=== PATIENT | female | born 1945 | race Hispanic/Latino ===

== ENCOUNTER 2016-04-20 03:44 | Inpatient (IN) | payer MEDICARE, SELFPAY ==
[~2016-04-20] VITALS: Ht 157.5 cm; Wt 47.2 kg
[2016-04-20 04:29] LABS: DIFF SLIDE NUMBER 102; MEAN CORPUSCULAR HEMOGLOBIN 29.2 pg (27.0-33.0); MEAN CORPUSCULAR HGB CONC 30.3 g/dl (32.0-36.5); MEAN CORPUSCULAR VOLUME 96.5 fl (80.0-96.0); PLATELET COUNT, AUTOMATED 426 k/mm3 (150-450); RED CELL DISTRIBUTION WIDTH 13.2 % (11.5-14.5)
[2016-04-20 04:31] LABS: WHITE BLOOD COUNT 32.4 K/mm3 (4.0-10.0)
[2016-04-20 04:36] LABS: VENOUS BASE EXCESS -28.2 (-2.0-2.0); VENOUS O2 SATURATION 65.5 % (60.0-80.0); VENOUS PARTIAL PRESSURE CO2 29.1 mmHg (38.0-50.0); VENOUS PARTIAL PRESSURE O2 35.5 mmHg (30.0-50.0); VENOUS STANDARD HCO3 6.1 MEQ/L
[2016-04-20 04:47] LABS: CALCIUM LEVEL 9.4 MG/DL (8.8-10.2); CREATININE FOR GFR 1.93 MG/DL (0.55-1.02); GLOMERULAR FILTRATION RATE 27.2 (>39); POTASSIUM SERUM 4.8 MEQ/L (3.5-5.1)
[2016-04-20] MEDS ORDERED: HumuLIN R (REGULAR) INSULIN (NovoLIN R) **100U/ML** PER UNIT As Ordered ONE ×2 (04:56)
[2016-04-20] MEDS: NS 1,000 ML IV SCH ×4 (05:19→20:19)
[2016-04-20] MEDS ORDERED: KCL 20MEQ IN 0.9 NS 1000 ML BAG As Ordered ONE (05:27)
--- NOTE | 2016-04-20 05:47 | REP ---
Clinical: Diabetic ketoacidosis . Comparison: None . Findings: The mediastinum and cardiac silhouette are stable and within normal limits for portable technique. The lung prabhakar demonstrate chronic-appearing changes without acute consolidation, effusion, or pneumothorax. Skeletal structures are intact. Impression: No acute cardiopulmonary process appreciated. Signed by El Burgos MD 04/20/2016 05:38 A
--- NOTE | 2016-04-20 06:33 | HPEPDOC ---
Medical History and Physical Date of Admission Apr 20, 2016 at 05:19 History and Physical HISTORY AND PHYSICAL Date of admission: 04/20/2016 PCP: None Chief complaint: Very weak HPI: 70-year-old female with diabetes mellitus and hyperlipidemia who was brought to the emergency department by her daughter and granddaughter because they noticed that she seemed very tired and weak. The patient currently lives out of state with her son, but was in state visiting her daughter and granddaughter for her birthday. The daughter states that the patient had been in her normal state of health until this morning, when she noticed that the patient seemed more tired. When the daughter came home from work today, the patient wanted water, but when she handed her the glass, the patient missed her mouth when she was trying to drink. This all concerned the daughter very much so she brought her to the hospital. Of note, the patient had a similar presentation a couple years ago when she was diagnosed with diabetes. At that time, the patient was living here with the daughter, and the daughter helped her follow her medications and changed her diet, and was able to decrease her A1c from 12 to 6 in several months. She initially was on 70/30 insulin with 10 units in the morning and 3 in the evening, but eventually was able to get down to just taking oral medication. However, the patient did not like the diet that the daughter had her on and did not like taking medications, so she moved out of state to live with her son. It appears that since moving away, the patient has no longer continued to treat her diabetes. Past medical history: Diabetes mellitus, hyperlipidemia Past surgical history: Family history: Diabetes Social history: Patient denies any alcohol or tobacco use Allergies: No known drug allergies Review of systems: General: Positive for chills. Negative for fevers Eyes: Negative for vision changes ENT: Negative for sore throat and nose bleed Cardiovascular: Negative for chest pain Respiratory: Negative for cough. Positive for shortness of breath. GI: Negative for nausea and vomiting Musculoskeletal: Negative for neck and back pain Neuro: Negative for headache and dizziness Endocrine: Positive for polyuria and polydipsia : Negative for dysuria Heme: Negative for bleeding Home meds: See below Physical exam: Vital signs: Blood pressure 121/77, HR 91, temperature 96.2, O2 sat 98% on room air, RR 16 Gen.: awake, tired but answers questions Eyes: Extraocular movements intact, normal sclera ENT: Dry mucous membranes Cardiovascular: RRR, no murmurs rubs or gallops Lungs: clear to auscultation bilaterally, no rales, rhonchi, or wheeze Abdomen: Soft, NT/ND, normal BS Musculoskeletal: normal range of motion Extremities: No peripheral edema Neuro: oriented to person and place but thinks the year is "46" Psych: anxious Labs and radiology: See below Sodium 126 Creatinine 1.93 Glucose 887 WBC 32 PH 6.86, bicarbonate 6 Gap 30 A1c 12.4 Assessment and plan: 70-year-old female with diabetes mellitus and hyperlipidemia who was brought to the emergency department by her daughter and granddaughter because they noticed that she seemed very tired and weak. She is admitted with DKA, which appears to be secondary to not treating her diabetes. 1. DKA, underlying diabetes mellitus type 2; the patient presents in DKA with a pH of 6.86, gap of 30, bicarbonate of 6. Admittedly she has not been treating her diabetes, and this is evident with an A1c of 12.4. At this time, she'll be continued on an insulin drip and IV fluids until she is able to be transitioned to long-acting insulin. When her mental status improves, we will need to reinforce to her the importance of treating her diabetes. 2. Pseudohyponatremia: Sodium is 126, artificially low secondary to her hyperglycemia. I expect this to correct with correction of her DKA. 3. Acute kidney injury: Creatinine is 1.93. This is most likely secondary to extreme dehydration from her hyperglycemia, and I expect this to correct as well with correction of her DKA. 4. Leukocytosis: WBC is 32. I suspect that most likely this is reactive to DKA, as she is afebrile. However, we will check a UA, urine culture, and blood culture in an effort to be thorough. Chest x-ray is unremarkable. DVT prophylaxis: Lovenox Dispo: admit as an inpatient to the service of Dr. Proctor Vital Signs see above Laboratory Data Labs 24H Laboratory Tests 2 04/20/16 04:12: Anion Gap 30H, Blood Gas Bicarbonate Standard 6.1, Blood Urea Nitrogen 38H, Creatinine 1.93H, Sodium Level 126L, Potassium Level 4.8, Chloride Level 89L, Carbon Dioxide Level 7L, Calcium Level 9.4, Estimated Mean Plasma Glucose 309H, Glomerular Filtration Rate 27.2L, Hemoglobin A1c 12.4H, Lymphocytes (Manual) 2L , Monocytes (Manual) 9H, Neutrophils 89H, Platelet Estimate NORMAL, Venous Blood Base Excess -28.2L, Venous Blood pH 6.858L, Venous Blood Partial Pressure CO2 29.1L, Venous Blood Partial Pressure O2 35.5, Venous Blood Total Carbon Dioxide 6.0L, Venous Blood HCO3 5.1L, Venous Blood Oxygen Saturation 65.5 04/20/16 06:17: CBC/BMP Laboratory Tests 04/20/16 04:12 Calcium Level 9.4, Red Blood Count 5.45 H, Mean Corpuscular Volume 96.5 H, Mean Corpuscular Hemoglobin 29.2, Mean Corpuscular Hemoglobin Concent 30.3 L, Red Cell Distribution Width 13.2 Home Medications Unable to Obtain Active Prescriptions or Reported Meds Allergies Coded Allergies: No Known Allergies (Unverified , 04/20/16) MIO MENDEZ Apr 20, 2016 06:33
[2016-04-20 08:14] LABS: ANION GAP 26 MEQ/L (8-16); BLOOD UREA NITROGEN 36 MG/DL (7-18); CALCIUM LEVEL 9.1 MG/DL (8.8-10.2); CARBON DIOXIDE LEVEL 6 MEQ/L (21-32); CHLORIDE LEVEL 98 MEQ/L (98-107); CREATININE FOR GFR 1.78 MG/DL (0.55-1.02); GLOMERULAR FILTRATION RATE 29.8 (>39); POTASSIUM SERUM 4.4 MEQ/L (3.5-5.1); SODIUM LEVEL 130 MEQ/L (136-145)
[2016-04-20 08:20] LABS: GLUCOSE, FASTING 597 MG/DL (83-110)
[2016-04-20] MEDS: INSULIN HUMAN REGULAR 100 UNITS in NS 99 ML IV SCH ×6 (08:30→16:00)
[2016-04-20] MEDS ORDERED: ENOXAPARIN 30 MG/0.3 ML SYR (J1650) SC SCH (09:00)
[2016-04-20] MEDS: PANTOPRAZOLE 40MG INJ (PROTONIX) (C9113) IV SCH (09:00)
[2016-04-20] MEDS ORDERED: PANTOPRAZOLE 40MG INJ (PROTONIX) (C9113) As Ordered ONE (09:25)
[2016-04-20] MEDS ORDERED: ENOXAPARIN 30 MG/0.3 ML SYR (J1650) As Ordered ONE (09:25)
[2016-04-20 10:00] VITALS: BP 107/68
[2016-04-20 10:08] LABS: CALCIUM LEVEL 8.9 MG/DL (8.8-10.2); CREATININE FOR GFR 1.67 MG/DL (0.55-1.02); GLOMERULAR FILTRATION RATE 32.1 (>39); POTASSIUM SERUM 3.9 MEQ/L (3.5-5.1)
[2016-04-20 11:35] LABS: CALCIUM LEVEL 8.6 MG/DL (8.8-10.2); CREATININE FOR GFR 1.58 MG/DL (0.55-1.02); GLOMERULAR FILTRATION RATE 34.2 (>39)
[2016-04-20 12:00] VITALS: BP 113/71
[2016-04-20 12:01] LABS: ABG HCO3 7.8 MEQ/L (22.0-26.0); ABG PARTIAL PRESSURE CO2 20.1 mmHg (35.0-45.0); ABG PARTIAL PRESSURE O2 105.9 mmHg (75.0-100.0); ABG STANDARD HCO3 11.3 MEQ/L (22.0-26.0); ABG TOTAL CO2 8.4 MEQ/L (23.0-31.0)
[2016-04-20 12:04] LABS: ABG pH (ARTERIAL) 7.208 UNITS (7.350-7.450)
[2016-04-20 13:49] LABS: CALCIUM LEVEL 8.4 MG/DL (8.8-10.2); CREATININE FOR GFR 1.47 MG/DL (0.55-1.02); GLOMERULAR FILTRATION RATE 37.2 (>39)
--- NOTE | 2016-04-20 14:18 | EDDOCDS ---
Nurse's Notes [facility] Name: Bri Skinner Age: 70 yrs Sex: Female : 1945 Arrival Date: 04/20/2016 Time: 03:44 Bed 20 Private MD: Unknown, Family Dr Diagnosis: Altered mental status, unspecified;Diabetes mellitus due to underlying condition with ketoacidosis without coma Presentation: 04/20 03:46 Presenting complaint: EMS states: FS read high when checked by EMS. pt c/o feeling mlc thirsty. Adult Sepsis Screening: The patient does not have new or worsening altered mentation. Patient's respiratory rate is less than 22. Systolic blood pressure is greater than 100. Patient has a qSOFA score of 0- Negative Sepsis Screen. Suicide/Homicide risk assessment- the patient denies having any suicidal and/or homicidal ideations and does not present with any other emotional, behavioral or mental health complaints. Status: Patient is not a dispatcher service or dependent. Transition of care: patient was not received from another setting of care. 03:46 Acuity: ESTEFANI Level 3 [facility] [place] 03:46 Method Of Arrival: Amb[place] [facility] [place] Triage Assessment: 03:54 General: Appears in no apparent distress, comfortable, Behavior is cooperative. Pain: mlc Denies pain. The patient is triaged at the bedside. See Assessment in Nurses Notes section of ED record. Neurological: Level of Consciousness is awake, obeys commands, Oriented to person. Respiratory: Airway is patent Respiratory effort is even, unlabored, Respiratory pattern is regular. GI: Denies nausea, vomiting. Derm: Skin is normal. Historical: - Allergies: No known drug Allergies; - Home Meds: 1. docusate sodium 100 mg Oral cap 1 cap as needed 2. meloxicam 15 mg oral tab 1 tab once daily as needed (Last dose: Unknown) 3. sertraline 50 mg oral tab 1 tab once daily (Last dose: Unknown) 4. senna 8.6 mg oral tab 1 tabs once daily (Last dose: Unknown) - PMHx: Diabetes - NIDDM: uncontrolled; Depression; - PSHx: Unable to obtain; - The history from nurses notes was reviewed: and I agree with what is documented. - Social history: Smoking status: Patient states was never smoker of tobacco. No barriers to communication noted, The patient speaks fluent Singaporean. - Family history: Not pertinent. - : Unable to assess if pt is on anticoagulants. Home medication list is obtained from family members, pill bottles, Unable to Verify Home Med List with the patient / caregiver. - Hospitalizations: : No recent hospitalization is reported. - Exposure Risk Screening:: None identified. - Immunization history:: All immunizations up-to-date. - Social history:: the patient is a non-smoker, the patient does not drink alcohol. Screenin:59 Screening information is obtained from the patient. Fall risk: No risks identified. mlc Assistance ADL's: requires no assistance with activities of daily living. Abuse/DV Screen: The patient / caregiver reports he/she is: pt cannot be assessed for living situation at this time. Nutritional screening: Unable to Assess. Advance Directives: Currently, there is no health care proxy. There is There is an active Power of Mobile Designer, Joe Owen, son. home support is adequate. Assessment: 04:26 General: Appears ill, Behavior is cooperative. Pain: Denies pain. Neurological: Level mlc of Consciousness is awake, obeys commands. Cardiovascular: Capillary refill < 3 seconds Heart tones S1 S2 present. Respiratory: Airway is patent Respiratory effort is even, labored, Respiratory pattern is regular, Breath sounds are clear bilaterally. GI: Abdomen is non- distended Bowel sounds present X 4 quads. Denies nausea, vomiting. Derm: Skin is normal. 05:07 Reassessment: pt medicated per order. pt able to stand and use bedside commode. IV mlc fluids infusing per order. 06:35 Reassessment: Patient appears in no apparent distress at this time. pt able to stand mlc and use commode with assistance. pt speaking with daughter. IV fluids infusing per order. . 06:43 Adult Sepsis Screening: The patient does not have new or worsening altered mentation. mlc Patient's respiratory rate is less than 22. Systolic blood pressure is greater than 100. Patient has a qSOFA score of 0- Negative Sepsis Screen. 07:07 Reassessment: PATIENT IS ED GUZMÁN. ALL FURTHER DOCUMENTATION DONE IN [facility]. nr1 07:10 General: Report given to Toya Schmidt RN. [facility] [place] Vital Signs: 03:54 BP 112 / 71; Pulse 113; Resp 20; Pulse Ox 98% ; Weight 49.9 kg (M); Pain 0/10; mlc 04:25 Temp 96.2(TE); mlc 05:03 BP 133 / 55 (auto/); mlc 05:03 Pulse 106 MON; Pulse Ox 99% ; mlc 05:32 BP 131 / 64 (auto/); mlc 05:34 Pulse 108 MON; Pulse Ox 99% ; mlc 06:02 BP 121 / 77 (auto/); mlc 06:02 Pulse 106 MON; Pulse Ox 98% ; mlc 06:25 Pulse 108 MON; Pulse Ox 98% ; mlc 06:33 BP 117 / 70 (auto/); mlc Vitals: 03:54 Log In Time N/A - ambulance arrival. mlc ED Course: 03:45 Patient visited by Nadine Melissa, Manager Global Communications. ml3 03:45 Unknown, Family is Private Physician. ml3 03:45 Swapna Bruno,RN is Primary Nurse. ml3 03:45 Patient moved to Waiting ml3 03:45 Patient moved to 5 ml3 03:49 Triage Initiated mlc 04:00 Patient visited by Swapna Bruno,JANAK. mlc 04:00 Maintain field IV. Site clean & dry. Gauge & site: 20g left AC. mlc 04:08 Radames Nguyen MD is Attending Physician. pc 04:16 Patient visited by Radames Nguyen MD. pc 04:20 CBC with Diff Sent. mlc 04:20 MED Profile Sent. mlc 04:20 Venous Blood Gas (large pea green tube on ice) Sent. mlc 04:20 A1C Sent. mlc 04:26 The patient / caregiver is instructed regarding the plan of care and ED course. mlc 04:28 Patient visited by Swapna Bruno RN. mlc 04:31 Patient name changed from Bri\S\\S\Skinner\S\ to Bri\S\ \S\Skinner. EDMS 04:32 Notified attending ED physician of Critical lab value. wbc 32.4. cz 04:33 [facility] [place] was scanned into [employer] and attached to record. hs2 04:43 DIFFERENTIAL NO CHARGE Sent. mlc 04:50 Notified attending ED physician of Critical lab value. GLUCOSE 887. cz 05:01 Patient moved to Radiology kristen 05:07 Patient moved to 5 mlc 05:07 Patient moved to Radiology kristen 05:08 Patient visited by Swapna Bruno,JANAK. mlc 05:16 Nowak, Kiara is Hospitalizing Provider. pc 05:39 Patient moved to 5 kristen 06:04 Written Provider Order was scanned into [employer] and attached to record. ml3 06:15 Chest, 1 View Returned. EDMS 06:37 Patient visited by Swapna Bruno RN. mlc 06:37 Inserted saline lock: 22 gauge in right hand by Mike Infante RN. mlc 06:44 No procedures done that require assistance. mlc 06:46 Patient moved to 20 cz 07:29 Primary Nurse role handed off by Swapna Bruno,JANAK kr3 08:21 notified of glucose 597 given to Sherri Souza RN. srm 11:56 ARTERIAL BLOOD GAS Sent. js Administered Medications: 04:24 Drug: NS 0.9% 1000 ml [sodium chloride 0.9 % intravenous solution] Route: IV; Rate: mlc bolus; Site: left antecubital; 05:04 Drug: Insulin Regular Human 10 units [insulin regular human 100 unit/mL injection mlc solution (0.1 mL)] {Co-Signature: patricia (Mike Infante RN).} Route: IVP; Site: left antecubital; 05:04 Drug: Insulin Regular Human Infusion (0.1units/kg/hr) 5 units/hr [insulin regular human mlc 100 unit/mL injection solution] {Co-Signature: patricia (Mike Infante RN).} Route: IV; Rate: calculated rate; Site: left antecubital; 05:55 Drug: NS 0.9 % with KCl 1000 ml [potassium chloride 20 mEq/L in 0.9 % sodium chloride mlc intravenous] {Co-Signature: patricia (Mike Infante RN).} Route: IV; Rate: 200 mL/hr; Site: right hand; Point of Care Testing: Blood Glucose: 05:00 Blood Glucose: High; mlc 06:00 Blood Glucose: High; mlc 07:03 Blood Glucose: High; mlc Ranges: RT: 11:56 ABG's drawn from right brachial artery allens test done and positive pressure held for js 5 minutes no bleeding noted pressure bandage applied specimen sent pt. tolerated well. Order Results: Lab Order: CBC with Diff; SPEC'M 04/20/16 04:12 Test: WHITE BLOOD COUNT; Value: 32.4; Range: 4.0-10.0; Abnormal: Above upper panic limits; Units: K/mm3; Status: F Test: RED BLOOD COUNT; Value: 5.45; Range: 4.00-5.40; Abnormal: Above high normal; Units: M/mm3; Status: F Test: HEMOGLOBIN; Value: 15.9; Range: 12.0-16.0; Units: g/dl; Status: F Test: HEMATOCRIT; Value: 52.6; Range: 36.0-47.0; Abnormal: Above high normal; Units: %; Status: F Test: MEAN CORPUSCULAR VOLUME; Value: 96.5; Range: 80.0-96.0; Abnormal: Above high normal; Units: fl; Status: F Test: MEAN CORPUSCULAR HEMOGLOBIN; Value: 29.2; Range: 27.0-33.0; Units: pg; Status: F Test: MEAN CORPUSCULAR HGB CONC; Value: 30.3; Range: 32.0-36.5; Abnormal: Below low normal; Units: g/dl; Status: F Test: RED CELL DISTRIBUTION WIDTH; Value: 13.2; Range: 11.5-14.5; Units: %; Status: F Test: PLATELET COUNT, AUTOMATED; Value: 426; Range: 150-450; Units: k/mm3; Status: F Test: NEUTROPHILS; Value: 89; Range: 35-75; Abnormal: Above high normal; Units: %; Status: F Test: LYMPHOCYTES; Value: 2; Range: 16-52; Abnormal: Below low normal; Units: %; Status: F Test: MONOCYTES; Value: 9; Range: 0-8; Abnormal: Above high normal; Units: %; Status: F Lab Order: MED Profile; [facility]'M 04/20/16 04:12 Test: GLUCOSE, FASTING; Value: 887; Range: 83-110; Abnormal: Above upper panic limits; Units: MG/DL; Status: F Test: BLOOD UREA NITROGEN; Value: 38; Range: 7-18; Abnormal: Above high normal; Units: MG/DL; Status: F Test: CREATININE FOR GFR; Value: 1.93; Range: 0.55-1.02; Abnormal: Above high normal; Units: MG/DL; Status: F Test: GLOMERULAR FILTRATION RATE; Value: 27.2; Range: >39; Abnormal: Below low normal; Status: F Test: SODIUM LEVEL; Value: 126; Range: 136-145; Abnormal: Below low normal; Units: MEQ/L; Status: F Test: POTASSIUM SERUM; Value: 4.8; Range: 3.5-5.1; Units: MEQ/L; Status: F Test: CHLORIDE LEVEL; Value: 89; Range: 98-107; Abnormal: Below low normal; Units: MEQ/L; Status: F Test: CARBON DIOXIDE LEVEL; Value: 7; Range: 21-32; Abnormal: Below low normal; Units: MEQ/L; Status: F Test: ANION GAP; Value: 30; Range: 8-16; Abnormal: Above high normal; Units: MEQ/L; Status: F Test: CALCIUM LEVEL; Value: 9.4; Range: 8.8-10.2; Units: MG/DL; Status: F Test Note: ; Units are mL/min/1.73 m2 Chronic Kidney Disease Staging per NKF: Stage I & II GFR >=60 Normal to Mildly Decreased Stage III GFR 30-59 Moderately Decreased Stage IV GFR 15-29 Severely Decreased Stage V GFR <15 Very Little GFR Left ESRD GFR <15 on DIAMOND POLISHER Test: ACETONE/KETONE; Range: <2.81; Units: MG/DL; Status: I Lab Order: Venous Blood Gas (large pea green tube on ice); [facility]' 04/20/16 04:12 Test: VENOUS PH; Value: 6.858; Range: 7.330-7.430; Abnormal: Below low normal; Units: UNITS; Status: F Test: VENOUS PARTIAL PRESSURE CO2; Value: 29.1; Range: 38.0-50.0; Abnormal: Below low normal; Units: mmHg; Status: F Test: VENOUS PARTIAL PRESSURE O2; Value: 35.5; Range: 30.0-50.0; Units: mmHg; Status: F Test: VENOUS TOTAL CO2; Value: 6.0; Range: 24.0-28.0; Abnormal: Below low normal; Units: MEQ/L; Status: F Test: VENOUS HCO3; Value: 5.1; Range: 23.0-27.0; Abnormal: Below low normal; Units: MEQ/L; Status: F Test: VENOUS BASE EXCESS; Value: -28.2; Range: -2.0-2.0; Abnormal: Below low normal; Status: F Test: VENOUS STANDARD HCO3; Value: 6.1; Units: MEQ/L; Status: F Test: VENOUS O2 SATURATION; Value: 65.5; Range: 60.0-80.0; Units: %; Status: F Lab Order: A1C; [facility] 04/20/16 04:12 Test: HEMOGLOBIN A1c; Value: 12.4; Range: 4.5-6.2; Abnormal: Above high normal; Units: %; Status: F Test: ESTIMATED AVERAGE GLUCOSE; Value: 309; Range: 60-110; Abnormal: Above high normal; Units: MG/DL; Status: F Lab Order: PLATELET ESTIMATE; 04/20/16 04:12 Test: PLATELET ESTIMATE; Value: NORMAL; Range: NORMAL; Status: F Lab Order: BMP; 04/20/16 06:17 Test: GLUCOSE, FASTING; Value: 597; Range: 83-110; Abnormal: Above upper panic limits; Units: MG/DL; Status: F Test: BLOOD UREA NITROGEN; Value: 36; Range: 7-18; Abnormal: Above high normal; Units: MG/DL; Status: F Test: CREATININE FOR GFR; Value: 1.78; Range: 0.55-1.02; Abnormal: Above high normal; Units: MG/DL; Status: F Test: GLOMERULAR FILTRATION RATE; Value: 29.8; Range: >39; Abnormal: Below low normal; Status: F Test: SODIUM LEVEL; Value: 130; Range: 136-145; Abnormal: Below low normal; Units: MEQ/L; Status: F Test: POTASSIUM SERUM; Value: 4.4; Range: 3.5-5.1; Units: MEQ/L; Status: F Test: CHLORIDE LEVEL; Value: 98; Range: 98-107; Units: MEQ/L; Status: F Test: CARBON DIOXIDE LEVEL; Value: 6; Range: 21-32; Abnormal: Below low normal; Units: MEQ/L; Status: F Test: ANION GAP; Value: 26; Range: 8-16; Abnormal: Above high normal; Units: MEQ/L; Status: F Test: CALCIUM LEVEL; Value: 9.1; Range: 8.8-10.2; Units: MG/DL; Status: F Test Note: ; Units are mL/min/1.73 m2 Chronic Kidney Disease Staging per NKF: Stage I & II GFR >=60 Normal to Mildly Decreased Stage III GFR 30-59 Moderately Decreased Stage IV GFR 15-29 Severely Decreased Stage V GFR <15 Very Little GFR Left ESRD GFR <15 on DIAMOND POL[employer]ER Lab Order: ACETONE/KETONE; SPEC'M 04/20/16 06:17 Test: ACETONE/KETONE; Value: > 46.00; Range: <2.81; Abnormal: Above high normal; Units: MG/DL; Status: F Lab Order: BASIC METABOLIC PROFILE; SPEC'M 04/20/16 09:27 Test: GLUCOSE, FASTING; Value: 481; Range: 83-110; Abnormal: Above upper panic limits; Units: MG/DL; Status: F Test: BLOOD UREA NITROGEN; Value: 36; Range: 7-18; Abnormal: Above high normal; Units: MG/DL; Status: F Test: CREATININE FOR GFR; Value: 1.67; Range: 0.55-1.02; Abnormal: Above high normal; Units: MG/DL; Status: F Test: GLOMERULAR FILTRATION RATE; Value: 32.1; Range: >39; Abnormal: Below low normal; Status: F Test: SODIUM LEVEL; Value: 131; Range: 136-145; Abnormal: Below low normal; Units: MEQ/L; Status: F Test: POTASSIUM SERUM; Value: 3.9; Range: 3.5-5.1; Units: MEQ/L; Status: F Test: CHLORIDE LEVEL; Value: 102; Range: 98-107; Units: MEQ/L; Status: F Test: CARBON DIOXIDE LEVEL; Value: 8; Range: 21-32; Abnormal: Below low normal; Units: MEQ/L; Status: F Test: ANION GAP; Value: 21; Range: 8-16; Abnormal: Above high normal; Units: MEQ/L; Status: F Test: CALCIUM LEVEL; Value: 8.9; Range: 8.8-10.2; Units: MG/DL; Status: F Test Note: ; Units are mL/min/1.73 m2 Chronic Kidney Disease Staging per NKF: Stage I & II GFR >=60 Normal to Mildly Decreased Stage III GFR 30-59 Moderately Decreased Stage IV GFR 15-29 Severely Decreased Stage V GFR <15 Very Little GFR Left ESRD GFR <15 on DIAMOND POLISHER Lab Order: BASIC METABOLIC PROFILE; SPEC'M 04/20/16 11:11 Test: GLUCOSE, FASTING; Value: 386; Range: 83-110; Abnormal: Above high normal; Units: MG/DL; Status: F Test: BLOOD UREA NITROGEN; Value: 35; Range: 7-18; Abnormal: Above high normal; Units: MG/DL; Status: F Test: CREATININE FOR GFR; Value: 1.58; Range: 0.55-1.02; Abnormal: Above high normal; Units: MG/DL; Status: F Test: GLOMERULAR FILTRATION RATE; Value: 34.2; Range: >39; Abnormal: Below low normal; Status: F Test: SODIUM LEVEL; Value: 133; Range: 136-145; Abnormal: Below low normal; Units: MEQ/L; Status: F Test: POTASSIUM SERUM; Value: 4.0; Range: 3.5-5.1; Units: MEQ/L; Status: F Test: CHLORIDE LEVEL; Value: 103; Range: 98-107; Units: MEQ/L; Status: F Test: CARBON DIOXIDE LEVEL; Value: 10; Range: 21-32; Abnormal: Below low normal; Units: MEQ/L; Status: F Test: ANION GAP; Value: 20; Range: 8-16; Abnormal: Above high normal; Units: MEQ/L; Status: F Test: CALCIUM LEVEL; Value: 8.6; Range: 8.8-10.2; Abnormal: Below low normal; Units: MG/DL; Status: F Test Note: ; Units are mL/min/1.73 m2 Chronic Kidney Disease Staging per NKF: Stage I & II GFR >=60 Normal to Mildly Decreased Stage III GFR 30-59 Moderately Decreased Stage IV GFR 15-29 Severely Decreased Stage V GFR <15 Very Little GFR Left ESRD GFR <15 on DIAMOND POL[employer]ER Lab Order: BASIC METABOLIC PROFILE; SPEC'M 04/20/16 13:06 Test: GLUCOSE, FASTING; Value: 282; Range: 83-110; Abnormal: Above high normal; Units: MG/DL; Status: F Test: BLOOD UREA NITROGEN; Value: 33; Range: 7-18; Abnormal: Above high normal; Units: MG/DL; Status: F Test: CREATININE FOR GFR; Value: 1.47; Range: 0.55-1.02; Abnormal: Above high normal; Units: MG/DL; Status: F Test: GLOMERULAR FILTRATION RATE; Value: 37.2; Range: >39; Abnormal: Below low normal; Status: F Test: SODIUM LEVEL; Value: 134; Range: 136-145; Abnormal: Below low normal; Units: MEQ/L; Status: F Test: POTASSIUM SERUM; Value: 4.0; Range: 3.5-5.1; Units: MEQ/L; Status: F Test: CHLORIDE LEVEL; Value: 106; Range: 98-107; Units: MEQ/L; Status: F Test: CARBON DIOXIDE LEVEL; Value: 9; Range: 21-32; Abnormal: Below low normal; Units: MEQ/L; Status: F Test: ANION GAP; Value: 19; Range: 8-16; Abnormal: Above high normal; Units: MEQ/L; Status: F Test: CALCIUM LEVEL; Value: 8.4; Range: 8.8-10.2; Abnormal: Below low normal; Units: MG/DL; Status: F Test Note: ; Units are mL/min/1.73 m2 Chronic Kidney Disease Staging per NKF: Stage I & II GFR >=60 Normal to Mildly Decreased Stage III GFR 30-59 Moderately Decreased Stage IV GFR 15-29 Severely Decreased Stage V GFR <15 Very Little GFR Left ESRD GFR <15 on DIAMOND POL[employer]ER Lab Order: ARTERIAL BLOOD GAS; [facility]' 04/20/16 11:54 Test: ABG pH (ARTERIAL); Value: 7.208; Range: 7.350-7.450; Abnormal: Critical Low; Units: UNITS; Status: F Test: ABG PARTIAL PRESSURE CO2; Value: 20.1; Range: 35.0-45.0; Abnormal: Below low normal; Units: mmHg; Status: F Test: ABG PARTIAL PRESSURE O2; Value: 105.9; Range: 75.0-100.0; Abnormal: Above high normal; Units: mmHg; Status: F Test: ABG TOTAL CO2; Value: 8.4; Range: 23.0-31.0; Abnormal: Below low normal; Units: MEQ/L; Status: F Test: ABG HCO3; Value: 7.8; Range: 22.0-26.0; Abnormal: Below low normal; Units: MEQ/L; Status: F Test: ABG BASE EXCESS; Value: -18.0; Range: -2.0-2.0; Abnormal: Below low normal; Status: F Test: ABG STANDARD HCO3; Value: 11.3; Range: 22.0-26.0; Abnormal: Below low normal; Units: MEQ/L; Status: F Test: ABG O2 SATURATION; Value: 98.3; Range: 95.0-99.0; Units: %; Status: F Lab Order: Fingerstick Blood Sugar; [facility]' 04/20/16 11:10 Test: BEDSIDE GLUCOSE; Value: 373; Range: 83-110; Abnormal: Above high normal; Units: MG/DL; Status: F Lab Order: Fingerstick Blood Sugar; [facility] 04/20/16 12:06 Test: BEDSIDE GLUCOSE; Value: 397; Range: 83-110; Abnormal: Above high normal; Units: MG/DL; Status: F Lab Order: Fingerstick Blood Sugar; [facility] 04/20/16 04:03 Test: BEDSIDE GLUCOSE; Value: > 600; Range: 83-110; Abnormal: Above upper panic limits; Units: MG/DL; Status: F Test Note: ; RN Notified Lab Order: Fingerstick Blood Sugar; [facility]' 04/20/16 05:59 Test: BEDSIDE GLUCOSE; Value: > 600; Range: 83-110; Abnormal: Above upper panic limits; Units: MG/DL; Status: F Test Note: ; RN Notified Doctor Notified Lab Order: Fingerstick Blood Sugar; [facility]' 04/20/16 07:02 Test: BEDSIDE GLUCOSE; Value: > 600; Range: 83-110; Abnormal: Above upper panic limits; Units: MG/DL; Status: F Test Note: ; RN Notified Radiology Order: Chest, 1 View Test: Chest, 1 View REASON FOR EXAMINATION: DKA; Clinical: Diabetic ketoacidosis .; ; Comparison: None .; ; Findings:; The mediastinum and cardiac silhouette are stable and within normal limits for; portable technique. The lung prabhakar demonstrate chronic-appearing changes; without acute consolidation, effusion, or pneumothorax. Skeletal structures are; intact.; ; Impression:; No acute cardiopulmonary process appreciated.; ; ; Signed by; El Burgos MD 04/20/2016 05:38 A; Outcome: 05:16 Decision to Hospitalize by Provider. pc 06:44 No special radiology studies were completed. mlc 14:17 Patient left the ED. [facility] Signatures: Dispatcher [employer] Radames Selby MD MD pc Michelson, Staci, RN RN Nessa Clayton RN RN mcp Zecher, Calvin, RN RN cz Ezekiel Reza James Shin, [facility] HospitalBridgette, Manager Global Communications Unit ml3 Lesvia Horvath RN RN kr3 Swapna Bruno RN RN mlc Rillera, Nicole, RN RN nr1 Glenda Molina, Reg Reg hs2 Mike Infante RN cz Corrections: (The following items were deleted from the chart) 06:37 05:03 Inserted saline lock: 22 gauge in right hand by Mike Infante RN [facility] [place] mlc MTDD
--- NOTE | 2016-04-20 14:18 | EDDOCDS ---
Physician Documentation [facility] Name: Bri Skinner Age: 70 yrs Sex: Female : 1945 Arrival Date: 04/20/2016 Time: 03:44 Bed 20 Private MD: Cookie, Family Disposition: 04/20 05:05 Critical Care:. pc Disposition: 04/20/16 05:16 Hospitalization ordered by Kiara Nowak for Inpatient Admission. Preliminary diagnosis are Altered mental status, unspecified, Diabetes mellitus due to underlying condition with ketoacidosis without coma. - Bed requested for M ICU. - Status is Inpatient Admission. mcp - Condition is Stable. - Problem is new. - Symptoms have improved. HPI: 05:05 This 70 yrs old Female presents to ER via Ambulance with complaints of High pc Blood Sugar. 05:05 The history is obtained from the patient, the patient's family/friend. A reliable pc history and/or examination was not able to be obtained, due to she does not speak Italian . She is a type 2 diabetic who moved back to the area just 6-7 weeks ago. She has been very thirsty and over the past few days, she has become more lethargic. She had been in poor health with her DM out of control in 2013. Her daughter managed to get her DM under control, with A1Cs in the 6.2 range, off insulin and only ion oral agents. The patient did not like the restrictions, so she moved to [place] to live with her son. The daughter does not know if she had any treatment there but came back just recently without any DM meds at all. The patient has not recently seen a physician. Historical: - Allergies: No known drug Allergies; - Home Meds: 1. docusate sodium 100 mg Oral cap 1 cap as needed 2. meloxicam 15 mg oral tab 1 tab once daily as needed (Last dose: Unknown) 3. sertraline 50 mg oral tab 1 tab once daily (Last dose: Unknown) 4. senna 8.6 mg oral tab 1 tabs once daily (Last dose: Unknown) - PMHx: Diabetes - NIDDM: uncontrolled; Depression; - PSHx: Unable to obtain; - The history from nurses notes was reviewed: and I agree with what is documented. - Social history: Smoking status: Patient states was never smoker of tobacco. No barriers to communication noted, The patient speaks fluent Italian. - Family history: Not pertinent. - : Unable to assess if pt is on anticoagulants. Home medication list is obtained from family members, pill bottles, Unable to Verify Home Med List with the patient / caregiver. - Hospitalizations: : No recent hospitalization is reported. - Exposure Risk Screening:: None identified. - Immunization history:: All immunizations up-to-date. - Social history:: the patient is a non-smoker, the patient does not drink alcohol. ROS: 05:05 All systems are negative except as listed. pc Exam: 05:05 General Appearance: no acute distress, lethargic. pc 05:05 EENT: normal eye inspection, ears, nose and throat normal, mucous membranes dry. 05:05 Neck: The exam reveals no acute abnormalities. ROM is normal and painless. No nuchal rigidity is noted.. 05:05 Respiratory: no respiratory distress, normal breath sounds. 05:05 CVS: regular rhythm, normal S1 and S2, no murmurs, strong peripheral pulses, the patient is tachycardic, at 115 bpm. 05:05 Abdomen: soft, non-tender, no organomegaly, normal bowel sounds. 05:05 Back: normal inspection. 05:05 Skin: skin color is normal, warm, dry. 05:05 Extremities: The extremities have a grossly normal appearance, are non-tender, without acute ROM abnormalities. 05:05 Neuro: oriented x 3, cranial nerves normal as tested, no motor deficits, no sensory deficits. 05:05 Psych: normal mood. Vital Signs: 03:54 BP 112 / 71; Pulse 113; Resp 20; Pulse Ox 98% ; Weight 49.9 kg / 110.01 lbs (M); Pain mlc 0/10; 04:25 Temp 96.2(TE); mlc 05:03 BP 133 / 55 (auto/); mlc 05:03 Pulse 106 MON; Pulse Ox 99% ; mlc 05:32 BP 131 / 64 (auto/); mlc 05:34 Pulse 108 MON; Pulse Ox 99% ; mlc 06:02 BP 121 / 77 (auto/); mlc 06:02 Pulse 106 MON; Pulse Ox 98% ; mlc 06:25 Pulse 108 MON; Pulse Ox 98% ; mlc 06:33 BP 117 / 70 (auto/); mlc MDM: 04:17 IV Saline Lock ordered. pc 04:17 NS 0.9% 1000 ml IV at bolus once ordered. pc 04:17 CBC with Diff Ordered. EDMS 04:17 MED Profile Ordered. EDMS 04:17 Venous Blood Gas (large pea green tube on ice) Ordered. EDMS 04:17 A1C Ordered. EDMS 04:27 Financial registration complete. hs2 04:32 DIFFERENTIAL NO CHARGE Ordered. EDMS 04:33 [facility] [place] Agreement was scanned into [employer] and attached to record. hs2 04:47 CBC with Diff Reviewed. pc 04:47 Venous Blood Gas (large pea green tube on ice) Reviewed. pc 04:51 Insulin Regular Human 10 units IVP once ordered. pc 04:51 Insulin Regular Human Infusion (0.1units/kg/hr) 5 units/hr IV at calculated rate Per pc protocol ordered. 04:51 Accucheck hourly ordered. pc 04:52 IV Saline Lock, Place second line, 18G or larger, in A/C vein ordered. pc 04:52 MED Profile Reviewed. pc 04:54 Chest, 1 View Ordered. EDMS 04:54 BED REQUEST+ADM ordered. EDMS 05:05 A1C Reviewed. pc 05:05 Differential Diagnosis: hyperglycemia r/o DKA r/o infection. Plan: labs, IVF, meds. pc Data reviewed: old medical records, vital signs, nurses notes, lab test results, all radiology studies and available results. Test interpretation: LAB - all labs as ordered have been reviewed, interpreted and considered in the overall management of the clinical presentation; Arterial blood gas is normal except. pH: 6.88 X-RAY - interpreted by tn, 1 view chest no acute disease. The patient has been re-examined and re-evaluated. The patient's symptoms have mildly improved after treatment. Physician consultation: Dr. Kiara Nowak was contacted at 05:15, regarding admission. Disposition: The historical points, examination findings, and any diagnostic results supporting the provided diagnosis, were discussed with the patient or legal guardian. The need for further work-up and/or treatment in the hospital was explained. 05:17 NS 0.9 % with KCl 20 mEq/L 1000 ml IV at 200 mL/hr continuous ordered. pc 05:43 Data reviewed: The patient's IO records were accessed, as they were informed. pc 05:43 Admission / Observation Status ordered. EDMS 05:44 URINALYSIS Ordered. EDMS 05:44 URINE CULTURE Ordered. EDMS 05:44 BLOOD CULTURES Ordered. EDMS 06:04 BMP Ordered. EDMS 06:04 Written Provider Order was scanned into [employer] and attached to record. ml3 07:28 ACETONE/KETONE Ordered. EDMS 07:41 BASIC METABOLIC PROFILE Ordered. EDMS 07:42 BASIC METABOLIC PROFILE Ordered. EDMS 07:42 BASIC METABOLIC PROFILE Ordered. EDMS 07:42 BASIC METABOLIC PROFILE Ordered. EDMS 07:42 BASIC METABOLIC PROFILE Ordered. EDMS 11:01 ARTERIAL BLOOD GAS Ordered. EDMS 13:38 Fingerstick Blood Sugar Ordered. EDMS 13:38 Fingerstick Blood Sugar Ordered. EDMS 13:38 Fingerstick Blood Sugar Ordered. EDMS Point of Care Testing: Blood Glucose: 05:00 Blood Glucose: High; mlc 06:00 Blood Glucose: High; mlc 07:03 Blood Glucose: High; mlc Ranges: Administered Medications: 04:24 Drug: NS 0.9% 1000 ml [sodium chloride 0.9 % intravenous solution] Route: IV; Rate: mlc bolus; Site: left antecubital; 05:04 Drug: Insulin Regular Human 10 units [insulin regular human 100 unit/mL injection mlc solution (0.1 mL)] {Co-Signature: patricia (Mike Infante RN).} Route: IVP; Site: left antecubital; 05:04 Drug: Insulin Regular Human Infusion (0.1units/kg/hr) 5 units/hr [insulin regular human mlc 100 unit/mL injection solution] {Co-Signature: patricia (Mike Infante RN).} Route: IV; Rate: calculated rate; Site: left antecubital; 05:55 Drug: NS 0.9 % with KCl 1000 ml [potassium chloride 20 mEq/L in 0.9 % sodium chloride mlc intravenous] {Co-Signature: patricia (Mike Infante RN).} Route: IV; Rate: 200 mL/hr; Site: right hand; Critical Care Time: 05:05 Critical care time: Bedside Care: 50 minutes, Consultation: 10 minutes, Family pc Intervention: 15 minutes. Total time: 75 minutes Signatures: Dispatcher [employer] EDMS Radames Nguyen MD MD pc Peters, Mary, RN RN mcp Lopresti, Mary-Elizabeth, Seafood Farmer Unit ml3 Swapna Bruno RN RN mlc Stanton, Hillary, Reg Reg hs2 Stephen Thakur RN RN Mike Infante RN The chart was reviewed and I authenticate all verbal orders and agree with the evaluation and treatment provided.Corrections: (The following items were deleted from the chart) 07:18 05:44 ACETONE/KETONE ordered. EDMS EDMS 07:28 07:19 ACETONE/KETONE ordered. EDMS EDMS Attachments: 04:33 [facility] Payment Agreement hs2 06:04 Written Provider Order ml3 MTDD
[2016-04-20] MEDS: INSULIN IV RATE CHANGE DOCUMENTATION ML/HR XX SCH ×2 (15:03→19:42)
[2016-04-20 16:03] LABS: CALCIUM LEVEL 8.3 MG/DL (8.8-10.2); CREATININE FOR GFR 1.34 MG/DL (0.55-1.02); GLOMERULAR FILTRATION RATE 41.4 (>39); POTASSIUM SERUM 3.9 MEQ/L (3.5-5.1)
[2016-04-20 18:03] LABS: CALCIUM LEVEL 8.1 MG/DL (8.8-10.2); CREATININE FOR GFR 1.25 MG/DL (0.55-1.02); GLOMERULAR FILTRATION RATE 44.8 (>39); POTASSIUM SERUM 3.7 MEQ/L (3.5-5.1)
[2016-04-20 19:24] LABS: CALCIUM LEVEL 7.8 MG/DL (8.8-10.2); CREATININE FOR GFR 1.29 MG/DL (0.55-1.02); GLOMERULAR FILTRATION RATE 43.2 (>39); POTASSIUM SERUM 3.6 MEQ/L (3.5-5.1)
[2016-04-20] MEDS: D5W/0.45% SODIUM CHLORIDE 1,000 ML IV SCH ×2 (19:40→21:19)
[2016-04-20 20:00] VITALS: BP 125/70
[2016-04-20] MEDS: KCL 10MEQ IN 100ML SWI (KRUN) 10 MEQ in APPROPRIATE DILUENT 1 EA IV SCH ×6 (20:30→23:01)
[2016-04-20 21:52] LABS: CALCIUM LEVEL 8.2 MG/DL (8.8-10.2); CREATININE FOR GFR 1.23 MG/DL (0.55-1.02); GLOMERULAR FILTRATION RATE 45.7 (>39); POTASSIUM SERUM 3.8 MEQ/L (3.5-5.1)
[2016-04-21] VITALS: BP 122/70
[2016-04-21] MEDS: KCL 10MEQ IN 100ML SWI (KRUN) 10 MEQ in APPROPRIATE DILUENT 1 EA IV SCH ×2 (00:14)
[2016-04-21 00:45] LABS: CALCIUM LEVEL 7.6 MG/DL (8.8-10.2); CREATININE FOR GFR 1.12 MG/DL (0.55-1.02); GLOMERULAR FILTRATION RATE 50.9 (>39); POTASSIUM SERUM 3.7 MEQ/L (3.5-5.1)
[2016-04-21 02:24] LABS: CALCIUM LEVEL 7.3 MG/DL (8.8-10.2); CREATININE FOR GFR 1.11 MG/DL (0.55-1.02); GLOMERULAR FILTRATION RATE 51.4 (>39); POTASSIUM SERUM 3.9 MEQ/L (3.5-5.1)
[2016-04-21] MEDS: D5W/0.45% SODIUM CHLORIDE 1,000 ML IV SCH ×2 (02:55→11:38)
[2016-04-21 04:00] VITALS: BP 114/52
[2016-04-21 04:29] LABS: CALCIUM LEVEL 7.7 MG/DL (8.8-10.2); CREATININE FOR GFR 1.11 MG/DL (0.55-1.02); GLOMERULAR FILTRATION RATE 51.4 (>39); POTASSIUM SERUM 4.4 MEQ/L (3.5-5.1)
[2016-04-21 06:20] LABS: CALCIUM LEVEL 7.8 MG/DL (8.8-10.2); CREATININE FOR GFR 1.02 MG/DL (0.55-1.02); GLOMERULAR FILTRATION RATE 56.7 (>39); MAGNESIUM LEVEL 1.8 MG/DL (1.8-2.4); POTASSIUM SERUM 3.5 MEQ/L (3.5-5.1)
[2016-04-21 06:49] LABS: BASO % 0.1 % (0.0-1.0); EOS % 0.1 % (0.0-3.0); LARGE UNSTAINED CELL # 0.1 K/mm3 (0.0-0.4); LARGE UNSTAINED CELL % 0.6 % (0.0-4.0); LYMPH # 0.8 K/mm3 (1.5-4.5); LYMPH % 4.3 % (24.0-44.0); MEAN CORPUSCULAR HGB CONC 33.9 g/dl (32.0-36.5); MONO # 0.7 K/mm3 (0.0-0.8); MONO % 3.8 % (0.0-5.0); NEUTROPHILS # 17.1 K/mm3 (1.8-7.7); NEUTROPHILS % 91.1 % (36.0-66.0); PLATELET COUNT, AUTOMATED 249 k/mm3 (150-450); RED CELL DISTRIBUTION WIDTH 12.7 % (11.5-14.5); WHITE BLOOD COUNT 18.8 K/mm3 (4.0-10.0)
[2016-04-21] MEDS ORDERED: POTASSIUM CHLORIDE 10 MEQ SR TABLET PO ONE ×2 (07:30→16:45)
[2016-04-21 07:57] LABS: MEAN CORPUSCULAR VOLUME 85.6 fl (80.0-96.0)
[2016-04-21 08:00] VITALS: BP 112/69
[2016-04-21 08:36] LABS: CALCIUM LEVEL 7.9 MG/DL (8.8-10.2); CREATININE FOR GFR 1.02 MG/DL (0.55-1.02); GLOMERULAR FILTRATION RATE 56.7 (>39); POTASSIUM SERUM 3.6 MEQ/L (3.5-5.1)
[2016-04-21] MEDS: HEPARIN SOD (PORCINE) 5000 UNITS/ML VIAL SQ SCH ×2 (09:12→20:33)
[2016-04-21] MEDS: PANTOPRAZOLE 40MG INJ (PROTONIX) (C9113) IV SCH (09:12)
[2016-04-21] MEDS: NYSTATIN 500,000 U/5 ML SUSP UDC SS SCH ×2 (11:38→16:51)
[2016-04-21 12:00] VITALS: BP 120/65
[2016-04-21 12:52] LABS: ANION GAP 14 MEQ/L (8-16); BLOOD UREA NITROGEN 20 MG/DL (7-18); CARBON DIOXIDE LEVEL 14 MEQ/L (21-32); CHLORIDE LEVEL 112 MEQ/L (98-107); CREATININE FOR GFR 0.92 MG/DL (0.55-1.02); GLOMERULAR FILTRATION RATE > 60.0 (>39); GLUCOSE, FASTING 240 MG/DL (83-110); POTASSIUM SERUM 3.7 MEQ/L (3.5-5.1); SODIUM LEVEL 140 MEQ/L (136-145)
--- NOTE | 2016-04-21 14:53 | IPNPDOC ---
Assessment/Plan Date Seen The patient was seen on 04/21/16. Plan / VTE VTE Prophylaxis Ordered?: Yes Plan Plan Text 1. Diabetic ketoacidosis secondary to dietary indiscretion Continue the patient on IV fluids and IV insulin We will transition the patient over to subcutaneous insulin once her anion gap closes and she is ready to eat I have discussed extensively the need for the patient to remain adherent to her insulin therapy We will continue to monitor her course 2. Acute kidney injury secondary to intravascular volume depletion, resolved Serum creatinine has returned back to within normal limits 3. Leukocytosis: WBC trending downward from 32K to 18 K today. I do believe that the patient's leukocytosis is reactive in nature secondary to diabetic ketoacidosis Thus far no overt source of infectious etiology has been identified We will continue to monitor her CBC DVT prophylaxis: Heparin subcutaneous Subjective Review of Systems CC/HPI The patient is a 70-year-old female admitted with a reason for visit of Dka Type 2 Not At Goal. General: Denies: Chills, Night Sweats Constitutional: Denies: Chills, Fever Eyes: Denies: Pain, Vision change ENT: Denies: Ear Pain, Head Aches Skin: Denies: Lesions, Rash Pulmonary: Denies: Cough, Dyspnea Cardiovascular: Denies: Chest Pain, Palpitations Gastrointestinal: Denies: Abdominal Pain, Nausea, Vomiting Hematologic: Denies: Bleeding Excessively, Bruising Musculoskeletal: Denies: Back Pain, Neck Pain Objective Physical Examination General Exam: Positive: Alert, Cooperative, No Acute Distress ENT Exam: Positive: Atraumatic, Mucous membr. moist/pink Neck Exam: Negative: JVD Chest Exam: Positive: Clear to auscultation, Normal air movement Heart Exam: Positive: Normal S1, Normal S2, Rate Normal Telemetry: Positive: Sinus Abdomen Exam: Positive: Soft, Negative: Tenderness Vital Signs/I&O Vital Signs Date Time Temp Pulse Resp B/P Pulse Ox O2 Delivery O2 Flow Rate FiO2 04/21/16 12:00 98.8 77 18 120/65 99 Room Air I&O- Last 24 Hours up to 6 AM 04/21/16 06:00 Intake Total 1857 ml Output Total 1100 ml Balance 757 ml Laboratory Data Labs 24H Laboratory Tests 2 04/20/16 14:57: Bedside Glucose (Misc Panel) 206H 04/20/16 15:21: Anion Gap 16, Blood Urea Nitrogen 33H, Creatinine 1.34H, Sodium Level 137, Potassium Level 3.9, Chloride Level 109H, Carbon Dioxide Level 12L, Calcium Level 8.3L, Glomerular Filtration Rate 41.4 04/20/16 16:14: Bedside Glucose (Misc Panel) 218H 04/20/16 16:59: Anion Gap 16, Blood Urea Nitrogen 31H, Creatinine 1.25H, Sodium Level 138, Potassium Level 3.7, Chloride Level 110H, Carbon Dioxide Level 12L, Calcium Level 8.1L, Glomerular Filtration Rate 44.8 04/20/16 18:08: Bedside Glucose (Misc Panel) 235H 04/20/16 18:57: Anion Gap 12, Blood Urea Nitrogen 29H, Creatinine 1.29H, Sodium Level 138, Potassium Level 3.6, Chloride Level 111H, Carbon Dioxide Level 15L, Calcium Level 7.8L, Glomerular Filtration Rate 43.2 04/20/16 19:33: Bedside Glucose (Misc Panel) 168H 04/20/16 20:28: Bedside Glucose (Misc Panel) 181H 04/20/16 21:09: Anion Gap 14, Blood Urea Nitrogen 29H, Creatinine 1.23H, Sodium Level 138, Potassium Level 3.8, Chloride Level 111H, Carbon Dioxide Level 13L, Calcium Level 8.2L, Glomerular Filtration Rate 45.7 04/20/16 21:24: Bedside Glucose (Misc Panel) 179H 04/20/16 22:27: Bedside Glucose (Misc Panel) 229H 04/20/16 23:32: Bedside Glucose (Misc Panel) 237H 04/20/16 23:33: Anion Gap 13, Blood Urea Nitrogen 29H, Creatinine 1.12H, Sodium Level 137, Potassium Level 3.7, Chloride Level 111H, Carbon Dioxide Level 13L, Calcium Level 7.6L, Glomerular Filtration Rate 50.9 04/21/16 00:15: Bedside Glucose (Misc Panel) 248H 04/21/16 01:23: Bedside Glucose (Misc Panel) 263H 04/21/16 01:37: Anion Gap 17H, Blood Urea Nitrogen 26H, Creatinine 1.11H, Sodium Level 139, Potassium Level 3.9, Chloride Level 110H, Carbon Dioxide Level 12L, Calcium Level 7.3L, Glomerular Filtration Rate 51.4 04/21/16 02:37: Bedside Glucose (Misc Panel) 245H 04/21/16 03:38: Bedside Glucose (Misc Panel) 250H 04/21/16 03:45: Anion Gap 15, Blood Urea Nitrogen 25H, Creatinine 1.11H, Sodium Level 138, Potassium Level 4.4, Chloride Level 110H, Carbon Dioxide Level 13L, Calcium Level 7.7L, Glomerular Filtration Rate 51.4 04/21/16 04:58: Bedside Glucose (Misc Panel) 243H 04/21/16 05:28: Anion Gap 14, White Blood Count 18.8H, Red Blood Count 3.81L, Hemoglobin 11.1#L , Hematocrit 32.6L, Mean Corpuscular Volume 85.6#, Mean Corpuscular Hemoglobin 29.0, Mean Corpuscular Hemoglobin Concent 33.9, Red Cell Distribution Width 12.7 , Platelet Count 249, Neutrophils (%) (Auto) 91.1H, Lymphocytes (%) (Auto) 4.3L , Monocytes (%) (Auto) 3.8, Eosinophils (%) (Auto) 0.1, Basophils (%) (Auto) 0.1 , Neutrophils # (Auto) 17.1H, Lymphocytes # (Auto) 0.8L, Monocytes # (Auto) 0.7 , Eosinophils # (Auto) 0.0, Basophils # (Auto) 0.0, Blood Urea Nitrogen 23H, Creatinine 1.02, Sodium Level 138, Potassium Level 3.5#, Chloride Level 110H, Carbon Dioxide Level 14L, Calcium Level 7.8L, Glomerular Filtration Rate 56.7, Large Unclassified Cells # 0.1, Large Unclassified Cells % 0.6, Magnesium Level 1.8 04/21/16 05:40: Bedside Glucose (Misc Panel) 271H 04/21/16 06:42: Bedside Glucose (Misc Panel) 242H 04/21/16 07:48: Bedside Glucose (Misc Panel) 277H 04/21/16 08:05: Anion Gap 14, Blood Urea Nitrogen 22H, Creatinine 1.02, Sodium Level 139, Potassium Level 3.6, Chloride Level 111H, Carbon Dioxide Level 14L, Calcium Level 7.9L, Glomerular Filtration Rate 56.7 04/21/16 09:15: Bedside Glucose (Misc Panel) 230H 04/21/16 10:15: Bedside Glucose (Misc Panel) 278H 04/21/16 11:03: Bedside Glucose (Misc Panel) 242H 04/21/16 12:09: Anion Gap 14, Blood Urea Nitrogen 20H, Creatinine 0.92, Sodium Level 140, Potassium Level 3.7, Chloride Level 112H, Carbon Dioxide Level 14L, Calcium Level 8.0L, Glomerular Filtration Rate > 60.0 04/21/16 12:18: Bedside Glucose (Misc Panel) 262H 04/21/16 12:59: Bedside Glucose (Misc Panel) 240H 04/21/16 14:03: Bedside Glucose (Misc Panel) 250H CBC/BMP Laboratory Tests 04/20/16 15:21 Calcium Level 8.3 L 04/20/16 16:59 Calcium Level 8.1 L 04/20/16 18:57 Calcium Level 7.8 L 04/20/16 21:09 Calcium Level 8.2 L 04/20/16 23:33 Calcium Level 7.6 L 04/21/16 01:37 Calcium Level 7.3 L 04/21/16 03:45 Calcium Level 7.7 L 04/21/16 05:28 Calcium Level 7.8 L, Red Blood Count 3.81 L, Mean Corpuscular Volume 85.6 #, Mean Corpuscular Hemoglobin 29.0, Mean Corpuscular Hemoglobin Concent 33.9, Red Cell Distribution Width 12.7, Neutrophils (%) (Auto) 91.1 H, Lymphocytes (%) ( Auto) 4.3 L, Monocytes (%) (Auto) 3.8, Eosinophils (%) (Auto) 0.1, Basophils (% ) (Auto) 0.1, Neutrophils # (Auto) 17.1 H, Lymphocytes # (Auto) 0.8 L, Monocytes # (Auto) 0.7, Eosinophils # (Auto) 0.0, Basophils # (Auto) 0.0 04/21/16 08:05 Calcium Level 7.9 L 04/21/16 12:09 Calcium Level 8.0 L FSBS Laboratory Tests Test 04/20/16 14:57 04/20/16 16:14 04/20/16 18:08 04/20/16 19:33 Range/Units Bedside Glucose (Misc Panel) 206 218 235 168 83-110 MG/DL Test 04/20/16 20:28 04/20/16 21:24 04/20/16 22:27 04/20/16 23:32 Range/Units Bedside Glucose (Misc Panel) 181 179 229 237 83-110 MG/DL Test 04/21/16 00:15 04/21/16 01:23 04/21/16 02:37 04/21/16 03:38 Range/Units Bedside Glucose (Misc Panel) 248 263 245 250 83-110 MG/DL Test 04/21/16 04:58 04/21/16 05:40 04/21/16 06:42 04/21/16 07:48 Range/Units Bedside Glucose (Misc Panel) 243 271 242 277 83-110 MG/DL Test 04/21/16 09:15 04/21/16 10:15 04/21/16 11:03 04/21/16 12:18 Range/Units Bedside Glucose (Misc Panel) 230 278 242 262 83-110 MG/DL Test 04/21/16 12:59 04/21/16 14:03 Range/Units Bedside Glucose (Misc Panel) 240 250 83-110 MG/DL Microbiology Microbiology 04/20/16 Blood Culture - Preliminary, Resulted No growth after 24 hours . All specim... 04/20/16 MRSA Screen, Received Pending BHARAT CHAMORRO MD Apr 21, 2016 14:53
[2016-04-21 16:00] VITALS: BP 110/66
[2016-04-21 16:34] LABS: ANION GAP 11 MEQ/L (8-16); BLOOD UREA NITROGEN 17 MG/DL (7-18); CALCIUM LEVEL 7.9 MG/DL (8.8-10.2); CARBON DIOXIDE LEVEL 16 MEQ/L (21-32); CHLORIDE LEVEL 114 MEQ/L (98-107); CREATININE FOR GFR 0.84 MG/DL (0.55-1.02); GLOMERULAR FILTRATION RATE > 60.0 (>39); GLUCOSE, FASTING 209 MG/DL (83-110); POTASSIUM SERUM 3.6 MEQ/L (3.5-5.1); SODIUM LEVEL 141 MEQ/L (136-145)
[2016-04-21] MEDS ORDERED: GLUCAGON FOR INJ 1 MG VIAL (J1610) SC PRN (16:45)
[2016-04-21] MEDS ORDERED: GLUCOSE 4 GM CHEW TABLET PO PRN (16:45)
[2016-04-21] MEDS ORDERED: DEXTROSE 50% 50 ML SYRINGE IV PRN (16:45)
[2016-04-21] MEDS: HumaLOG INSULIN (NovoLOG) PER UNIT SC SCH ×2 (16:52→20:31)
[2016-04-21] MEDS: INSULIN HUMAN REGULAR 100 UNITS in NS 99 ML IV SCH (17:00)
[2016-04-21] MEDS ORDERED: LEVEMIR (INSULIN DETEMIR) 1 UNITS/0.01ML SC ONE (17:00)
[2016-04-21] MEDS ORDERED: SLF 3 ML SYR IV PRN (17:45)
[2016-04-21 20:00] VITALS: BP 119/73
[2016-04-21] MEDS: SLF 3 ML SYR IV SCH (20:34)
[2016-04-21 22:29] LABS: ANION GAP 11 MEQ/L (8-16); BLOOD UREA NITROGEN 18 MG/DL (7-18); CALCIUM LEVEL 8.4 MG/DL (8.8-10.2); CARBON DIOXIDE LEVEL 15 MEQ/L (21-32); CHLORIDE LEVEL 113 MEQ/L (98-107); CREATININE FOR GFR 0.73 MG/DL (0.55-1.02); GLOMERULAR FILTRATION RATE > 60.0 (>39); GLUCOSE, FASTING 247 MG/DL (83-110); POTASSIUM SERUM 3.8 MEQ/L (3.5-5.1); SODIUM LEVEL 139 MEQ/L (136-145)
[2016-04-22] VITALS: BP 155/79
[2016-04-22 04:00] VITALS: BP 146/76
[2016-04-22 04:44] LABS: BASO # 0.4 K/mm3 (0.0-0.2); BASO % 2.7 % (0.0-1.0); EOS % 0.2 % (0.0-3.0); LARGE UNSTAINED CELL # 0.1 K/mm3 (0.0-0.4); LARGE UNSTAINED CELL % 0.7 % (0.0-4.0); LYMPH # 1.5 K/mm3 (1.5-4.5); LYMPH % 9.6 % (24.0-44.0); MEAN CORPUSCULAR HEMOGLOBIN 28.3 pg (27.0-33.0); MEAN CORPUSCULAR HGB CONC 34.5 g/dl (32.0-36.5); MEAN CORPUSCULAR VOLUME 82.1 fl (80.0-96.0); MONO # 0.6 K/mm3 (0.0-0.8); MONO % 3.8 % (0.0-5.0); NEUTROPHILS # 12.9 K/mm3 (1.8-7.7); NEUTROPHILS % 85.6 % (36.0-66.0); PLATELET COUNT, AUTOMATED 245 k/mm3 (150-450); RED CELL DISTRIBUTION WIDTH 13.5 % (11.5-14.5)
[2016-04-22 04:56] LABS: ANION GAP 12 MEQ/L (8-16); BLOOD UREA NITROGEN 16 MG/DL (7-18); CALCIUM LEVEL 8.8 MG/DL (8.8-10.2); CARBON DIOXIDE LEVEL 16 MEQ/L (21-32); CHLORIDE LEVEL 114 MEQ/L (98-107); CREATININE FOR GFR 0.66 MG/DL (0.55-1.02); GLOMERULAR FILTRATION RATE > 60.0 (>39); GLUCOSE, FASTING 187 MG/DL (83-110); MAGNESIUM LEVEL 1.9 MG/DL (1.8-2.4); POTASSIUM SERUM 3.7 MEQ/L (3.5-5.1); SODIUM LEVEL 142 MEQ/L (136-145)
[2016-04-22] MEDS: SLF 3 ML SYR IV SCH ×3 (05:36→21:45)
[2016-04-22] MEDS: NYSTATIN 500,000 U/5 ML SUSP UDC SS SCH ×4 (05:36→17:58)
[2016-04-22 08:00] VITALS: BP 113/68
[2016-04-22] MEDS: HumaLOG INSULIN (NovoLOG) PER UNIT SC SCH ×4 (08:12→22:37)
[2016-04-22 08:35] LABS: ANION GAP 10 MEQ/L (8-16); BLOOD UREA NITROGEN 15 MG/DL (7-18); CALCIUM LEVEL 8.4 MG/DL (8.8-10.2); CARBON DIOXIDE LEVEL 17 MEQ/L (21-32); CHLORIDE LEVEL 116 MEQ/L (98-107); CREATININE FOR GFR 0.62 MG/DL (0.55-1.02); GLOMERULAR FILTRATION RATE > 60.0 (>39); GLUCOSE, FASTING 169 MG/DL (83-110); POTASSIUM SERUM 3.6 MEQ/L (3.5-5.1); SODIUM LEVEL 143 MEQ/L (136-145)
[2016-04-22] MEDS ORDERED: LEVEMIR (INSULIN DETEMIR) 1 UNITS/0.01ML SC SCH (09:00)
[2016-04-22] MEDS: HEPARIN SOD (PORCINE) 5000 UNITS/ML VIAL SQ SCH ×2 (10:22→21:45)
[2016-04-22] MEDS: PANTOPRAZOLE 40MG INJ (PROTONIX) (C9113) IV SCH (10:22)
[2016-04-22 12:00] VITALS: BP 126/71
--- NOTE | 2016-04-22 13:56 | IPNPDOC ---
Assessment/Plan Date Seen The patient was seen on 04/22/16. Plan / VTE VTE Prophylaxis Ordered?: Yes Plan Plan Text 1. Diabetic ketoacidosis secondary to dietary indiscretion Patient transitioned to by mouth carb consistent diet and subcutaneous insulin Blood sugar levels have remained stable We will continue to monitor her course I did have an extensive conversation with the patient with her daughter at bedside and her son on speaker phone about the need for the patient to adhere to her insulin therapy and practice dietary discretion. I will give the patient a pamphlet with information written in Nepali so that she can better educate herself about her disease and the management of it. 2. Acute kidney injury secondary to intravascular volume depletion, resolved Serum creatinine has returned back to within normal limits 3. Leukocytosis: WBC trending downward from 32K to 18K to 15K today. I do believe that the patient's leukocytosis is reactive in nature secondary to diabetic ketoacidosis Thus far no overt source of infectious etiology has been identified We will continue to monitor her CBC DVT prophylaxis: Heparin subcutaneous Disposition-the patient does not have any insurance at this time, and we will need to set the patient up with insulin medication, and supplies for diabetic care. We will titrate the patient's insulin needs over the weekend, and arrange for medication/supplies with the help of PFS. Subjective Review of Systems CC/HPI The patient is a 70-year-old female admitted with a reason for visit of Dka Type 2 Not At Goal. General: Denies: Chills, Night Sweats Constitutional: Denies: Chills, Fever Eyes: Denies: Pain, Vision change ENT: Denies: Ear Pain, Head Aches Skin: Denies: Lesions, Rash Pulmonary: Denies: Cough, Dyspnea Cardiovascular: Denies: Chest Pain, Orthopnea, Palpitations Gastrointestinal: Denies: Abdominal Pain, Nausea, Vomiting Hematologic: Denies: Bleeding Excessively, Bruising Musculoskeletal: Denies: Back Pain, Neck Pain Objective Physical Examination General Exam: Positive: Alert, Cooperative, No Acute Distress ENT Exam: Positive: Atraumatic, Mucous membr. moist/pink Neck Exam: Negative: JVD Chest Exam: Positive: Clear to auscultation, Normal air movement Heart Exam: Positive: Normal S1, Normal S2, Rate Normal Telemetry: Positive: Sinus Abdomen Exam: Positive: Soft, Negative: Tenderness Extremity Exam: Negative: Edema, Tenderness Vital Signs/I&O Vital Signs Date Time Temp Pulse Resp B/P Pulse Ox O2 Delivery O2 Flow Rate FiO2 04/22/16 12:00 99.0 80 16 126/71 97 Room Air I&O- Last 24 Hours up to 6 AM 04/22/16 06:00 Intake Total 1654 ml Output Total 1525 ml Balance 129 ml Laboratory Data Labs 24H Laboratory Tests 2 04/21/16 14:03: Bedside Glucose (Misc Panel) 250H 04/21/16 14:59: Bedside Glucose (Misc Panel) 221H 04/21/16 16:00: Anion Gap 11, Blood Urea Nitrogen 17, Creatinine 0.84, Sodium Level 141, Potassium Level 3.6, Chloride Level 114H, Carbon Dioxide Level 16L, Calcium Level 7.9L, Glomerular Filtration Rate > 60.0 04/21/16 16:06: Bedside Glucose (Misc Panel) 222H 04/21/16 20:30: Bedside Glucose (Misc Panel) 225H 04/21/16 22:00: Anion Gap 11, Blood Urea Nitrogen 18, Creatinine 0.73, Sodium Level 139, Potassium Level 3.8, Chloride Level 113H, Carbon Dioxide Level 15L, Calcium Level 8.4L, Glomerular Filtration Rate > 60.0 04/22/16 04:06: Anion Gap 12, Blood Urea Nitrogen 16, Creatinine 0.66, Sodium Level 142, Potassium Level 3.7, Chloride Level 114H, Carbon Dioxide Level 16L, Calcium Level 8.8, Glomerular Filtration Rate > 60.0, White Blood Count 15.0H, Red Blood Count 4.00, Hemoglobin 11.3L, Hematocrit 32.8L, Mean Corpuscular Volume 82.1, Mean Corpuscular Hemoglobin 28.3, Mean Corpuscular Hemoglobin Concent 34.5 , Red Cell Distribution Width 13.5, Platelet Count 245, Neutrophils (%) (Auto) 85.6H, Lymphocytes (%) (Auto) 9.6L, Monocytes (%) (Auto) 3.8, Eosinophils (%) ( Auto) 0.2, Basophils (%) (Auto) 2.7H, Neutrophils # (Auto) 12.9H, Lymphocytes # (Auto) 1.5, Monocytes # (Auto) 0.6, Eosinophils # (Auto) 0.0, Basophils # (Auto ) 0.4H, Large Unclassified Cells # 0.1, Large Unclassified Cells % 0.7, Magnesium Level 1.9 04/22/16 07:59: Anion Gap 10, Blood Urea Nitrogen 15, Creatinine 0.62, Sodium Level 143, Potassium Level 3.6, Chloride Level 116H, Carbon Dioxide Level 17L, Calcium Level 8.4L, Glomerular Filtration Rate > 60.0 04/22/16 11:52: Bedside Glucose (Misc Panel) 146H CBC/BMP Laboratory Tests 04/21/16 16:00 Calcium Level 7.9 L 04/21/16 22:00 Calcium Level 8.4 L 04/22/16 04:06 Calcium Level 8.8, Red Blood Count 4.00, Mean Corpuscular Volume 82.1, Mean Corpuscular Hemoglobin 28.3, Mean Corpuscular Hemoglobin Concent 34.5, Red Cell Distribution Width 13.5, Neutrophils (%) (Auto) 85.6 H, Lymphocytes (%) (Auto) 9.6 L, Monocytes (%) (Auto) 3.8, Eosinophils (%) (Auto) 0.2, Basophils (%) (Auto ) 2.7 H, Neutrophils # (Auto) 12.9 H, Lymphocytes # (Auto) 1.5, Monocytes # ( Auto) 0.6, Eosinophils # (Auto) 0.0, Basophils # (Auto) 0.4 H 04/22/16 07:59 Calcium Level 8.4 L FSBS Laboratory Tests Test 04/21/16 14:03 04/21/16 14:59 04/21/16 16:06 04/21/16 20:30 Range/Units Bedside Glucose (Misc Panel) 250 221 222 225 83-110 MG/DL Test 04/22/16 11:52 Range/Units Bedside Glucose (Misc Panel) 146 83-110 MG/DL Microbiology Microbiology 04/20/16 Blood Culture - Preliminary, Resulted No Growth after 48 hours. All Specime... 04/20/16 MRSA Screen - Final, Complete BHARAT CHAMORRO MD Apr 22, 2016 13:56
[2016-04-22] MEDS ORDERED: POTASSIUM CHLORIDE 10 MEQ SR TABLET PO ONE (14:15)
[2016-04-22 15:00] VITALS: BP 120/72
--- NOTE | 2016-04-22 15:19 | EDDOCDS ---
Physician Documentation [facility] Name: Bri Skinner Age: 70 yrs Sex: Female : 1945 Arrival Date: 04/20/2016 Time: 03:44 Bed 20 Private MD: Cokoie, Family Disposition: 04/20 05:05 Critical Care:. pc Disposition: 04/20/16 05:16 Hospitalization ordered by Kiara Nowak for Inpatient Admission. Preliminary diagnosis are Altered mental status, unspecified, Diabetes mellitus due to underlying condition with ketoacidosis without coma. - Bed requested for M ICU. - Status is Inpatient Admission. mcp - Condition is Stable. - Problem is new. - Symptoms have improved. HPI: 05:05 This 70 yrs old Female presents to ER via Ambulance with complaints of High pc Blood Sugar. 05:05 The history is obtained from the patient, the patient's family/friend. A reliable pc history and/or examination was not able to be obtained, due to she does not speak [place] . She is a type 2 diabetic who moved back to the area just 6-7 weeks ago. She has been very thirsty and over the past few days, she has become more lethargic. She had been in poor health with her DM out of control in 2013. Her daughter managed to get her DM under control, with A1Cs in the 6.2 range, off insulin and only ion oral agents. The patient did not like the restrictions, so she moved to [place] to live with her son. The daughter does not know if she had any treatment there but came back just recently without any DM meds at all. The patient has not recently seen a physician. Historical: - Allergies: No known drug Allergies; - Home Meds: 1. docusate sodium 100 mg Oral cap 1 cap as needed 2. meloxicam 15 mg oral tab 1 tab once daily as needed (Last dose: Unknown) 3. sertraline 50 mg oral tab 1 tab once daily (Last dose: Unknown) 4. senna 8.6 mg oral tab 1 tabs once daily (Last dose: Unknown) - PMHx: Diabetes - NIDDM: uncontrolled; Depression; - PSHx: Unable to obtain; - The history from nurses notes was reviewed: and I agree with what is documented. - Social history: Smoking status: Patient states was never smoker of tobacco. No barriers to communication noted, The patient speaks fluent [place]. - Family history: Not pertinent. - : Unable to assess if pt is on anticoagulants. Home medication list is obtained from family members, pill bottles, Unable to Verify Home Med List with the patient / caregiver. - Hospitalizations: : No recent hospitalization is reported. - Exposure Risk Screening:: None identified. - Immunization history:: All immunizations up-to-date. - Social history:: the patient is a non-smoker, the patient does not drink alcohol. ROS: 05:05 All systems are negative except as listed. pc Exam: 05:05 General Appearance: no acute distress, lethargic. pc 05:05 EENT: normal eye inspection, ears, nose and throat normal, mucous membranes dry. 05:05 Neck: The exam reveals no acute abnormalities. ROM is normal and painless. No nuchal rigidity is noted.. 05:05 Respiratory: no respiratory distress, normal breath sounds. 05:05 CVS: regular rhythm, normal S1 and S2, no murmurs, strong peripheral pulses, the patient is tachycardic, at 115 bpm. 05:05 Abdomen: soft, non-tender, no organomegaly, normal bowel sounds. 05:05 Back: normal inspection. 05:05 Skin: skin color is normal, warm, dry. 05:05 Extremities: The extremities have a grossly normal appearance, are non-tender, without acute ROM abnormalities. 05:05 Neuro: oriented x 3, cranial nerves normal as tested, no motor deficits, no sensory deficits. 05:05 Psych: normal mood. Vital Signs: 03:54 BP 112 / 71; Pulse 113; Resp 20; Pulse Ox 98% ; Weight 49.9 kg / 110.01 lbs (M); Pain mlc 0/10; 04:25 Temp 96.2(TE); mlc 05:03 BP 133 / 55 (auto/); mlc 05:03 Pulse 106 MON; Pulse Ox 99% ; mlc 05:32 BP 131 / 64 (auto/); mlc 05:34 Pulse 108 MON; Pulse Ox 99% ; mlc 06:02 BP 121 / 77 (auto/); mlc 06:02 Pulse 106 MON; Pulse Ox 98% ; mlc 06:25 Pulse 108 MON; Pulse Ox 98% ; mlc 06:33 BP 117 / 70 (auto/); mlc MDM: 04:17 IV Saline Lock ordered. pc 04:17 NS 0.9% 1000 ml IV at bolus once ordered. pc 04:17 CBC with Diff Ordered. EDMS 04:17 MED Profile Ordered. EDMS 04:17 Venous Blood Gas (large pea green tube on ice) Ordered. EDMS 04:17 A1C Ordered. EDMS 04:27 Financial registration complete. hs2 04:32 DIFFERENTIAL NO CHARGE Ordered. EDMS 04:33 [facility] [place] Payment Agreement was scanned into [employer] and attached to record. hs2 04:47 CBC with Diff Reviewed. pc 04:47 Venous Blood Gas (large pea green tube on ice) Reviewed. pc 04:51 Insulin Regular Human 10 units IVP once ordered. pc 04:51 Insulin Regular Human Infusion (0.1units/kg/hr) 5 units/hr IV at calculated rate Per pc protocol ordered. 04:51 Accucheck hourly ordered. pc 04:52 IV Saline Lock, Place second line, 18G or larger, in A/C vein ordered. pc 04:52 MED Profile Reviewed. pc 04:54 Chest, 1 View Ordered. EDMS 04:54 BED REQUEST+ADM ordered. EDMS 05:05 A1C Reviewed. pc 05:05 Differential Diagnosis: hyperglycemia r/o DKA r/o infection. Plan: labs, IVF, meds. pc Data reviewed: old medical records, vital signs, nurses notes, lab test results, all radiology studies and available results. Test interpretation: LAB - all labs as ordered have been reviewed, interpreted and considered in the overall management of the clinical presentation; Arterial blood gas is normal except. pH: 6.88 X-RAY - interpreted by mi, 1 view chest no acute disease. The patient has been re-examined and re-evaluated. The patient's symptoms have mildly improved after treatment. Physician consultation: Dr. Kiara Nowak was contacted at 05:15, regarding admission. Disposition: The historical points, examination findings, and any diagnostic results supporting the provided diagnosis, were discussed with the patient or legal guardian. The need for further work-up and/or treatment in the hospital was explained. 05:17 NS 0.9 % with KCl 20 mEq/L 1000 ml IV at 200 mL/hr continuous ordered. pc 05:43 Data reviewed: The patient's IO records were accessed, as they were informed. pc 05:43 Admission / Observation Status ordered. EDMS 05:44 URINALYSIS Ordered. EDMS 05:44 URINE CULTURE Ordered. EDMS 05:44 BLOOD CULTURES Ordered. EDMS 06:04 BMP Ordered. EDMS 06:04 Written Provider Order was scanned into [employer] and attached to record. ml3 07:28 ACETONE/KETONE Ordered. EDMS 07:41 BASIC METABOLIC PROFILE Ordered. EDMS 07:42 BASIC METABOLIC PROFILE Ordered. EDMS 07:42 BASIC METABOLIC PROFILE Ordered. EDMS 07:42 BASIC METABOLIC PROFILE Ordered. EDMS 07:42 BASIC METABOLIC PROFILE Ordered. EDMS 11:01 ARTERIAL BLOOD GAS Ordered. EDMS 13:38 Fingerstick Blood Sugar Ordered. EDMS 13:38 Fingerstick Blood Sugar Ordered. EDMS 13:38 Fingerstick Blood Sugar Ordered. EDMS Point of Care Testing: Blood Glucose: 05:00 Blood Glucose: High; mlc 06:00 Blood Glucose: High; mlc 07:03 Blood Glucose: High; mlc Ranges: Administered Medications: 04:24 Drug: NS 0.9% 1000 ml [sodium chloride 0.9 % intravenous solution] Route: IV; Rate: mlc bolus; Site: left antecubital; 05:04 Drug: Insulin Regular Human 10 units [insulin regular human 100 unit/mL injection mlc solution (0.1 mL)] {Co-Signature: patricia (Mike Infante RN).} Route: IVP; Site: left antecubital; 05:04 Drug: Insulin Regular Human Infusion (0.1units/kg/hr) 5 units/hr [insulin regular human mlc 100 unit/mL injection solution] {Co-Signature: patricia (Mike Infante RN).} Route: IV; Rate: calculated rate; Site: left antecubital; 05:55 Drug: NS 0.9 % with KCl 1000 ml [potassium chloride 20 mEq/L in 0.9 % sodium chloride mlc intravenous] {Co-Signature: patricia (Mike Infante RN).} Route: IV; Rate: 200 mL/hr; Site: right hand; Critical Care Time: 05:05 Critical care time: Bedside Care: 50 minutes, Consultation: 10 minutes, Family pc Intervention: 15 minutes. Total time: 75 minutes Signatures: Dispatcher [employer] EDMS Radames Nguyen MD MD pc Peters, Mary, RN RN mcp Lopresti, Mary-Elizabeth, Electrocardiogram Technician Unit ml3 Swapna Bruno RN RN mlc Stanton, Hillary, Reg Reg hs2 Stephen Thakur RN RN Mike Infante RN The chart was reviewed and I authenticate all verbal orders and agree with the evaluation and treatment provided.Corrections: (The following items were deleted from the chart) 07:18 05:44 ACETONE/KETONE ordered. EDMS EDMS 07:28 07:19 ACETONE/KETONE ordered. EDMS EDMS Attachments: 04:33 [facility] [place] Payment Agreement hs2 06:04 Written Provider Order ml3 Chart Complete MTDD
--- NOTE | 2016-04-22 15:19 | EDDOCDS ---
Nurse's Notes [facility] Name: Bri Skinner Age: 70 yrs Sex: Female : 1945 Arrival Date: 04/20/2016 Time: 03:44 Bed 20 Private MD: Unknown, Family Dr Diagnosis: Altered mental status, unspecified;Diabetes mellitus due to underlying condition with ketoacidosis without coma Presentation: 04/20 03:46 Presenting complaint: EMS states: FS read high when checked by EMS. pt c/o feeling mlc thirsty. Adult Sepsis Screening: The patient does not have new or worsening altered mentation. Patient's respiratory rate is less than 22. Systolic blood pressure is greater than 100. Patient has a qSOFA score of 0- Negative Sepsis Screen. Suicide/Homicide risk assessment- the patient denies having any suicidal and/or homicidal ideations and does not present with any other emotional, behavioral or mental health complaints. Status: Patient is not a financial services representative or dependent. Transition of care: patient was not received from another setting of care. 03:46 Acuity: ESTEFANI Level 3 [facility] 03:46 Method Of Arrival: Ambulance [facility] Triage Assessment: 03:54 General: Appears in no apparent distress, comfortable, Behavior is cooperative. Pain: mlc Denies pain. The patient is triaged at the bedside. See Assessment in Nurses Notes section of ED record. Neurological: Level of Consciousness is awake, obeys commands, Oriented to person. Respiratory: Airway is patent Respiratory effort is even, unlabored, Respiratory pattern is regular. GI: Denies nausea, vomiting. Derm: Skin is normal. Historical: - Allergies: No known drug Allergies; - Home Meds: 1. docusate sodium 100 mg Oral cap 1 cap as needed 2. meloxicam 15 mg oral tab 1 tab once daily as needed (Last dose: Unknown) 3. sertraline 50 mg oral tab 1 tab once daily (Last dose: Unknown) 4. senna 8.6 mg oral tab 1 tabs once daily (Last dose: Unknown) - PMHx: Diabetes - NIDDM: uncontrolled; Depression; - PSHx: Unable to obtain; - The history from nurses notes was reviewed: and I agree with what is documented. - Social history: Smoking status: Patient states was never smoker of tobacco. No barriers to communication noted, The patient speaks fluent [place]. - Family history: Not pertinent. - : Unable to assess if pt is on anticoagulants. Home medication list is obtained from family members, pill bottles, Unable to Verify Home Med List with the patient / caregiver. - Hospitalizations: : No recent hospitalization is reported. - Exposure Risk Screening:: None identified. - Immunization history:: All immunizations up-to-date. - Social history:: the patient is a non-smoker, the patient does not drink alcohol. Screenin:59 Screening information is obtained from the patient. Fall risk: No risks identified. mlc Assistance ADL's: requires no assistance with activities of daily living. Abuse/DV Screen: The patient / caregiver reports he/she is: pt cannot be assessed for living situation at this time. Nutritional screening: Unable to Assess. Advance Directives: Currently, there is no health care proxy. There is There is an active Power of [employer], Joe Owen, son. home support is adequate. Assessment: 04:26 General: Appears ill, Behavior is cooperative. Pain: Denies pain. Neurological: Level mlc of Consciousness is awake, obeys commands. Cardiovascular: Capillary refill < 3 seconds Heart tones S1 S2 present. Respiratory: Airway is patent Respiratory effort is even, labored, Respiratory pattern is regular, Breath sounds are clear bilaterally. GI: Abdomen is non- distended Bowel sounds present X 4 quads. Denies nausea, vomiting. Derm: Skin is normal. 05:07 Reassessment: pt medicated per order. pt able to stand and use bedside commode. IV mlc fluids infusing per order. 06:35 Reassessment: Patient appears in no apparent distress at this time. pt able to stand mlc and use commode with assistance. pt speaking with daughter. IV fluids infusing per order. . 06:43 Adult Sepsis Screening: The patient does not have new or worsening altered mentation. mlc Patient's respiratory rate is less than 22. Systolic blood pressure is greater than 100. Patient has a qSOFA score of 0- Negative Sepsis Screen. 07:07 Reassessment: PATIENT IS ED GUZMÁN. ALL FURTHER DOCUMENTATION DONE IN [facility]. nr1 07:10 General: Report given to Toya Schmidt RN. [facility] Vital Signs: 03:54 BP 112 / 71; Pulse 113; Resp 20; Pulse Ox 98% ; Weight 49.9 kg (M); Pain 0/10; mlc 04:25 Temp 96.2(TE); mlc 05:03 BP 133 / 55 (auto/); mlc 05:03 Pulse 106 MON; Pulse Ox 99% ; mlc 05:32 BP 131 / 64 (auto/); mlc 05:34 Pulse 108 MON; Pulse Ox 99% ; mlc 06:02 BP 121 / 77 (auto/); mlc 06:02 Pulse 106 MON; Pulse Ox 98% ; mlc 06:25 Pulse 108 MON; Pulse Ox 98% ; mlc 06:33 BP 117 / 70 (auto/); mlc Vitals: 03:54 Log In Time N/A - ambulance arrival. mlc ED Course: 03:45 Patient visited by Nadine Melissa, Crisis Intervention Counselor. ml3 03:45 Unknown, Family is Private Physician. ml3 03:45 Swapna Bruno,RN is Primary Nurse. ml3 03:45 Patient moved to Waiting ml3 03:45 Patient moved to 5 ml3 03:49 Triage Initiated mlc 04:00 Patient visited by Swapna Bruno,JANAK. mlc 04:00 Maintain field IV. Site clean & dry. Gauge & site: 20g left AC. mlc 04:08 Radames Nguyen MD is Attending Physician. pc 04:16 Patient visited by Radames Nguyen MD. pc 04:20 CBC with Diff Sent. mlc 04:20 MED Profile Sent. mlc 04:20 Venous Blood Gas (large pea green tube on ice) Sent. mlc 04:20 A1C Sent. mlc 04:26 The patient / caregiver is instructed regarding the plan of care and ED course. mlc 04:28 Patient visited by Swapna Bruno RN. mlc 04:31 Patient name changed from Bri\S\\S\Skinner\S\ to Bri\S\ \S\Skinner. EDMS 04:32 Notified attending ED physician of Critical lab value. wbc 32.4. cz 04:33 [facility] Payment Agreement was scanned into [employer] and attached to record. hs2 04:43 DIFFERENTIAL NO CHARGE Sent. mlc 04:50 Notified attending ED physician of Critical lab value. GLUCOSE 887. cz 05:01 Patient moved to Radiology kristen 05:07 Patient moved to 5 mlc 05:07 Patient moved to Radiology kristen 05:08 Patient visited by Swapna Bruno,JANAK. mlc 05:16 Nowak, Kiara is Hospitalizing Provider. pc 05:39 Patient moved to 5 kristen 06:04 Written Provider Order was scanned into [employer] and attached to record. ml3 06:15 Chest, 1 View Returned. EDMS 06:37 Patient visited by Swapna Bruno RN. mlc 06:37 Inserted saline lock: 22 gauge in right hand by Mike Infante RN. mlc 06:44 No procedures done that require assistance. mlc 06:46 Patient moved to 20 cz 07:29 Primary Nurse role handed off by Swapna Bruno,JANAK kr3 08:21 notified of glucose 597 given to Sherri Souza RN. srm 11:56 ARTERIAL BLOOD GAS Sent. js Administered Medications: 04:24 Drug: NS 0.9% 1000 ml [sodium chloride 0.9 % intravenous solution] Route: IV; Rate: mlc bolus; Site: left antecubital; 05:04 Drug: Insulin Regular Human 10 units [insulin regular human 100 unit/mL injection mlc solution (0.1 mL)] {Co-Signature: patricia (Mike Infante RN).} Route: IVP; Site: left antecubital; 05:04 Drug: Insulin Regular Human Infusion (0.1units/kg/hr) 5 units/hr [insulin regular human mlc 100 unit/mL injection solution] {Co-Signature: patricia (Mike Infante RN).} Route: IV; Rate: calculated rate; Site: left antecubital; 05:55 Drug: NS 0.9 % with KCl 1000 ml [potassium chloride 20 mEq/L in 0.9 % sodium chloride mlc intravenous] {Co-Signature: patricia (Mike Infante RN).} Route: IV; Rate: 200 mL/hr; Site: right hand; Point of Care Testing: Blood Glucose: 05:00 Blood Glucose: High; mlc 06:00 Blood Glucose: High; mlc 07:03 Blood Glucose: High; mlc Ranges: RT: 11:56 ABG's drawn from right brachial artery allens test done and positive pressure held for js 5 minutes no bleeding noted pressure bandage applied specimen sent pt. tolerated well. Order Results: Lab Order: CBC with Diff; SPEC'M 04/20/16 04:12 Test: WHITE BLOOD COUNT; Value: 32.4; Range: 4.0-10.0; Abnormal: Above upper panic limits; Units: K/mm3; Status: F Test: RED BLOOD COUNT; Value: 5.45; Range: 4.00-5.40; Abnormal: Above high normal; Units: M/mm3; Status: F Test: HEMOGLOBIN; Value: 15.9; Range: 12.0-16.0; Units: g/dl; Status: F Test: HEMATOCRIT; Value: 52.6; Range: 36.0-47.0; Abnormal: Above high normal; Units: %; Status: F Test: MEAN CORPUSCULAR VOLUME; Value: 96.5; Range: 80.0-96.0; Abnormal: Above high normal; Units: fl; Status: F Test: MEAN CORPUSCULAR HEMOGLOBIN; Value: 29.2; Range: 27.0-33.0; Units: pg; Status: F Test: MEAN CORPUSCULAR HGB CONC; Value: 30.3; Range: 32.0-36.5; Abnormal: Below low normal; Units: g/dl; Status: F Test: RED CELL DISTRIBUTION WIDTH; Value: 13.2; Range: 11.5-14.5; Units: %; Status: F Test: PLATELET COUNT, AUTOMATED; Value: 426; Range: 150-450; Units: k/mm3; Status: F Test: NEUTROPHILS; Value: 89; Range: 35-75; Abnormal: Above high normal; Units: %; Status: F Test: LYMPHOCYTES; Value: 2; Range: 16-52; Abnormal: Below low normal; Units: %; Status: F Test: MONOCYTES; Value: 9; Range: 0-8; Abnormal: Above high normal; Units: %; Status: F Lab Order: MED Profile; [facility] 04/20/16 04:12 Test: GLUCOSE, FASTING; Value: 887; Range: 83-110; Abnormal: Above upper panic limits; Units: MG/DL; Status: F Test: BLOOD UREA NITROGEN; Value: 38; Range: 7-18; Abnormal: Above high normal; Units: MG/DL; Status: F Test: CREATININE FOR GFR; Value: 1.93; Range: 0.55-1.02; Abnormal: Above high normal; Units: MG/DL; Status: F Test: GLOMERULAR FILTRATION RATE; Value: 27.2; Range: >39; Abnormal: Below low normal; Status: F Test: SODIUM LEVEL; Value: 126; Range: 136-145; Abnormal: Below low normal; Units: MEQ/L; Status: F Test: POTASSIUM SERUM; Value: 4.8; Range: 3.5-5.1; Units: MEQ/L; Status: F Test: CHLORIDE LEVEL; Value: 89; Range: 98-107; Abnormal: Below low normal; Units: MEQ/L; Status: F Test: CARBON DIOXIDE LEVEL; Value: 7; Range: 21-32; Abnormal: Below low normal; Units: MEQ/L; Status: F Test: ANION GAP; Value: 30; Range: 8-16; Abnormal: Above high normal; Units: MEQ/L; Status: F Test: CALCIUM LEVEL; Value: 9.4; Range: 8.8-10.2; Units: MG/DL; Status: F Test Note: ; Units are mL/min/1.73 m2 Chronic Kidney Disease Staging per NKF: Stage I & II GFR >=60 Normal to Mildly Decreased Stage III GFR 30-59 Moderately Decreased Stage IV GFR 15-29 Severely Decreased Stage V GFR <15 Very Little GFR Left ESRD GFR <15 on BOX ATTACHER Test: ACETONE/KETONE; Range: <2.81; Units: MG/DL; Status: I Lab Order: Venous Blood Gas (large pea green tube on ice); [facility]' 04/20/16 04:12 Test: VENOUS PH; Value: 6.858; Range: 7.330-7.430; Abnormal: Below low normal; Units: UNITS; Status: F Test: VENOUS PARTIAL PRESSURE CO2; Value: 29.1; Range: 38.0-50.0; Abnormal: Below low normal; Units: mmHg; Status: F Test: VENOUS PARTIAL PRESSURE O2; Value: 35.5; Range: 30.0-50.0; Units: mmHg; Status: F Test: VENOUS TOTAL CO2; Value: 6.0; Range: 24.0-28.0; Abnormal: Below low normal; Units: MEQ/L; Status: F Test: VENOUS HCO3; Value: 5.1; Range: 23.0-27.0; Abnormal: Below low normal; Units: MEQ/L; Status: F Test: VENOUS BASE EXCESS; Value: -28.2; Range: -2.0-2.0; Abnormal: Below low normal; Status: F Test: VENOUS STANDARD HCO3; Value: 6.1; Units: MEQ/L; Status: F Test: VENOUS O2 SATURATION; Value: 65.5; Range: 60.0-80.0; Units: %; Status: F Lab Order: A1C; [facility] 04/20/16 04:12 Test: HEMOGLOBIN A1c; Value: 12.4; Range: 4.5-6.2; Abnormal: Above high normal; Units: %; Status: F Test: ESTIMATED AVERAGE GLUCOSE; Value: 309; Range: 60-110; Abnormal: Above high normal; Units: MG/DL; Status: F Lab Order: PLATELET ESTIMATE; 04/20/16 04:12 Test: PLATELET ESTIMATE; Value: NORMAL; Range: NORMAL; Status: F Lab Order: BMP; 04/20/16 06:17 Test: GLUCOSE, FASTING; Value: 597; Range: 83-110; Abnormal: Above upper panic limits; Units: MG/DL; Status: F Test: BLOOD UREA NITROGEN; Value: 36; Range: 7-18; Abnormal: Above high normal; Units: MG/DL; Status: F Test: CREATININE FOR GFR; Value: 1.78; Range: 0.55-1.02; Abnormal: Above high normal; Units: MG/DL; Status: F Test: GLOMERULAR FILTRATION RATE; Value: 29.8; Range: >39; Abnormal: Below low normal; Status: F Test: SODIUM LEVEL; Value: 130; Range: 136-145; Abnormal: Below low normal; Units: MEQ/L; Status: F Test: POTASSIUM SERUM; Value: 4.4; Range: 3.5-5.1; Units: MEQ/L; Status: F Test: CHLORIDE LEVEL; Value: 98; Range: 98-107; Units: MEQ/L; Status: F Test: CARBON DIOXIDE LEVEL; Value: 6; Range: 21-32; Abnormal: Below low normal; Units: MEQ/L; Status: F Test: ANION GAP; Value: 26; Range: 8-16; Abnormal: Above high normal; Units: MEQ/L; Status: F Test: CALCIUM LEVEL; Value: 9.1; Range: 8.8-10.2; Units: MG/DL; Status: F Test Note: ; Units are mL/min/1.73 m2 Chronic Kidney Disease Staging per NKF: Stage I & II GFR >=60 Normal to Mildly Decreased Stage III GFR 30-59 Moderately Decreased Stage IV GFR 15-29 Severely Decreased Stage V GFR <15 Very Little GFR Left ESRD GFR <15 on BOX ATTACHER Lab Order: ACETONE/KETONE; SPEC'M 04/20/16 06:17 Test: ACETONE/KETONE; Value: > 46.00; Range: <2.81; Abnormal: Above high normal; Units: MG/DL; Status: F Lab Order: BASIC METABOLIC PROFILE; SPEC'M 04/20/16 09:27 Test: GLUCOSE, FASTING; Value: 481; Range: 83-110; Abnormal: Above upper panic limits; Units: MG/DL; Status: F Test: BLOOD UREA NITROGEN; Value: 36; Range: 7-18; Abnormal: Above high normal; Units: MG/DL; Status: F Test: CREATININE FOR GFR; Value: 1.67; Range: 0.55-1.02; Abnormal: Above high normal; Units: MG/DL; Status: F Test: GLOMERULAR FILTRATION RATE; Value: 32.1; Range: >39; Abnormal: Below low normal; Status: F Test: SODIUM LEVEL; Value: 131; Range: 136-145; Abnormal: Below low normal; Units: MEQ/L; Status: F Test: POTASSIUM SERUM; Value: 3.9; Range: 3.5-5.1; Units: MEQ/L; Status: F Test: CHLORIDE LEVEL; Value: 102; Range: 98-107; Units: MEQ/L; Status: F Test: CARBON DIOXIDE LEVEL; Value: 8; Range: 21-32; Abnormal: Below low normal; Units: MEQ/L; Status: F Test: ANION GAP; Value: 21; Range: 8-16; Abnormal: Above high normal; Units: MEQ/L; Status: F Test: CALCIUM LEVEL; Value: 8.9; Range: 8.8-10.2; Units: MG/DL; Status: F Test Note: ; Units are mL/min/1.73 m2 Chronic Kidney Disease Staging per NKF: Stage I & II GFR >=60 Normal to Mildly Decreased Stage III GFR 30-59 Moderately Decreased Stage IV GFR 15-29 Severely Decreased Stage V GFR <15 Very Little GFR Left ESRD GFR <15 on BOX ATTACHER Lab Order: BASIC METABOLIC PROFILE; SPEC'M 04/20/16 11:11 Test: GLUCOSE, FASTING; Value: 386; Range: 83-110; Abnormal: Above high normal; Units: MG/DL; Status: F Test: BLOOD UREA NITROGEN; Value: 35; Range: 7-18; Abnormal: Above high normal; Units: MG/DL; Status: F Test: CREATININE FOR GFR; Value: 1.58; Range: 0.55-1.02; Abnormal: Above high normal; Units: MG/DL; Status: F Test: GLOMERULAR FILTRATION RATE; Value: 34.2; Range: >39; Abnormal: Below low normal; Status: F Test: SODIUM LEVEL; Value: 133; Range: 136-145; Abnormal: Below low normal; Units: MEQ/L; Status: F Test: POTASSIUM SERUM; Value: 4.0; Range: 3.5-5.1; Units: MEQ/L; Status: F Test: CHLORIDE LEVEL; Value: 103; Range: 98-107; Units: MEQ/L; Status: F Test: CARBON DIOXIDE LEVEL; Value: 10; Range: 21-32; Abnormal: Below low normal; Units: MEQ/L; Status: F Test: ANION GAP; Value: 20; Range: 8-16; Abnormal: Above high normal; Units: MEQ/L; Status: F Test: CALCIUM LEVEL; Value: 8.6; Range: 8.8-10.2; Abnormal: Below low normal; Units: MG/DL; Status: F Test Note: ; Units are mL/min/1.73 m2 Chronic Kidney Disease Staging per NKF: Stage I & II GFR >=60 Normal to Mildly Decreased Stage III GFR 30-59 Moderately Decreased Stage IV GFR 15-29 Severely Decreased Stage V GFR <15 Very Little GFR Left ESRD GFR <15 on BOX ATTACHER Lab Order: BASIC METABOLIC PROFILE; SPEC'M 04/20/16 13:06 Test: GLUCOSE, FASTING; Value: 282; Range: 83-110; Abnormal: Above high normal; Units: MG/DL; Status: F Test: BLOOD UREA NITROGEN; Value: 33; Range: 7-18; Abnormal: Above high normal; Units: MG/DL; Status: F Test: CREATININE FOR GFR; Value: 1.47; Range: 0.55-1.02; Abnormal: Above high normal; Units: MG/DL; Status: F Test: GLOMERULAR FILTRATION RATE; Value: 37.2; Range: >39; Abnormal: Below low normal; Status: F Test: SODIUM LEVEL; Value: 134; Range: 136-145; Abnormal: Below low normal; Units: MEQ/L; Status: F Test: POTASSIUM SERUM; Value: 4.0; Range: 3.5-5.1; Units: MEQ/L; Status: F Test: CHLORIDE LEVEL; Value: 106; Range: 98-107; Units: MEQ/L; Status: F Test: CARBON DIOXIDE LEVEL; Value: 9; Range: 21-32; Abnormal: Below low normal; Units: MEQ/L; Status: F Test: ANION GAP; Value: 19; Range: 8-16; Abnormal: Above high normal; Units: MEQ/L; Status: F Test: CALCIUM LEVEL; Value: 8.4; Range: 8.8-10.2; Abnormal: Below low normal; Units: MG/DL; Status: F Test Note: ; Units are mL/min/1.73 m2 Chronic Kidney Disease Staging per NKF: Stage I & II GFR >=60 Normal to Mildly Decreased Stage III GFR 30-59 Moderately Decreased Stage IV GFR 15-29 Severely Decreased Stage V GFR <15 Very Little GFR Left ESRD GFR <15 on BOX ATTACHER Lab Order: ARTERIAL BLOOD GAS; [facility] 04/20/16 11:54 Test: ABG pH (ARTERIAL); Value: 7.208; Range: 7.350-7.450; Abnormal: Critical Low; Units: UNITS; Status: F Test: ABG PARTIAL PRESSURE CO2; Value: 20.1; Range: 35.0-45.0; Abnormal: Below low normal; Units: mmHg; Status: F Test: ABG PARTIAL PRESSURE O2; Value: 105.9; Range: 75.0-100.0; Abnormal: Above high normal; Units: mmHg; Status: F Test: ABG TOTAL CO2; Value: 8.4; Range: 23.0-31.0; Abnormal: Below low normal; Units: MEQ/L; Status: F Test: ABG HCO3; Value: 7.8; Range: 22.0-26.0; Abnormal: Below low normal; Units: MEQ/L; Status: F Test: ABG BASE EXCESS; Value: -18.0; Range: -2.0-2.0; Abnormal: Below low normal; Status: F Test: ABG STANDARD HCO3; Value: 11.3; Range: 22.0-26.0; Abnormal: Below low normal; Units: MEQ/L; Status: F Test: ABG O2 SATURATION; Value: 98.3; Range: 95.0-99.0; Units: %; Status: F Lab Order: Fingerstick Blood Sugar; [facility] 04/20/16 11:10 Test: BEDSIDE GLUCOSE; Value: 373; Range: 83-110; Abnormal: Above high normal; Units: MG/DL; Status: F Lab Order: Fingerstick Blood Sugar; [facility] 04/20/16 12:06 Test: BEDSIDE GLUCOSE; Value: 397; Range: 83-110; Abnormal: Above high normal; Units: MG/DL; Status: F Lab Order: Fingerstick Blood Sugar; [facility] 04/20/16 04:03 Test: BEDSIDE GLUCOSE; Value: > 600; Range: 83-110; Abnormal: Above upper panic limits; Units: MG/DL; Status: F Test Note: ; RN Notified Lab Order: Fingerstick Blood Sugar; [facility] 04/20/16 05:59 Test: BEDSIDE GLUCOSE; Value: > 600; Range: 83-110; Abnormal: Above upper panic limits; Units: MG/DL; Status: F Test Note: ; RN Notified Doctor Notified Lab Order: Fingerstick Blood Sugar; [facility] 04/20/16 07:02 Test: BEDSIDE GLUCOSE; Value: > 600; Range: 83-110; Abnormal: Above upper panic limits; Units: MG/DL; Status: F Test Note: ; RN Notified Radiology Order: Chest, 1 View Test: Chest, 1 View REASON FOR EXAMINATION: DKA; Clinical: Diabetic ketoacidosis .; ; Comparison: None .; ; Findings:; The mediastinum and cardiac silhouette are stable and within normal limits for; portable technique. The lung prabhakar demonstrate chronic-appearing changes; without acute consolidation, effusion, or pneumothorax. Skeletal structures are; intact.; ; Impression:; No acute cardiopulmonary process appreciated.; ; ; Signed by; El Burgos MD 04/20/2016 05:38 A; Outcome: 05:16 Decision to Hospitalize by Provider. pc 06:44 No special radiology studies were completed. mlc 14:17 Patient left the ED. [facility] Signatures: Dispatcher [employer] EDRadames Madden MD MD pc Michelson, Staci, RN RN Nessa Clayton RN RN mcp Zecher, Calvin, RN RN cz Ezekiel Reza James Shin, [facility], Crisis Intervention Counselor Unit ml3 Lesvia Horvath RN RN kr3 Swapna Bruno RN RN mlc Rillera, Nicole, RN RN nr1 Glenda Molina, Reg Reg hs2 Mike Infante RN cz Corrections: (The following items were deleted from the chart) 06:37 05:03 Inserted saline lock: 22 gauge in right hand by Mike Infante RN [facility] mlc Chart Complete MTDD
--- NOTE | 2016-04-22 15:19 | EDDOCDS ---
Physician Documentation [facility] Name: Bri Skinner Age: 70 yrs Sex: Female : 1945 Arrival Date: 04/20/2016 Time: 03:44 Bed 20 Private MD: Cookie, Family Disposition: 04/20 05:05 Critical Care:. pc Disposition: 04/20/16 05:16 Hospitalization ordered by Kiara Nowak for Inpatient Admission. Preliminary diagnosis are Altered mental status, unspecified, Diabetes mellitus due to underlying condition with ketoacidosis without coma. - Bed requested for M ICU. - Status is Inpatient Admission. mcp - Condition is Stable. - Problem is new. - Symptoms have improved. HPI: 05:05 This 70 yrs old Female presents to ER via Ambulance with complaints of High pc Blood Sugar. 05:05 The history is obtained from the patient, the patient's family/friend. A reliable pc history and/or examination was not able to be obtained, due to she does not speak [place] . She is a type 2 diabetic who moved back to the area just 6-7 weeks ago. She has been very thirsty and over the past few days, she has become more lethargic. She had been in poor health with her DM out of control in 2013. Her daughter managed to get her DM under control, with A1Cs in the 6.2 range, off insulin and only ion oral agents. The patient did not like the restrictions, so she moved to [place] to live with her son. The daughter does not know if she had any treatment there but came back just recently without any DM meds at all. The patient has not recently seen a physician. Historical: - Allergies: No known drug Allergies; - Home Meds: 1. docusate sodium 100 mg Oral cap 1 cap as needed 2. meloxicam 15 mg oral tab 1 tab once daily as needed (Last dose: Unknown) 3. sertraline 50 mg oral tab 1 tab once daily (Last dose: Unknown) 4. senna 8.6 mg oral tab 1 tabs once daily (Last dose: Unknown) - PMHx: Diabetes - NIDDM: uncontrolled; Depression; - PSHx: Unable to obtain; - The history from nurses notes was reviewed: and I agree with what is documented. - Social history: Smoking status: Patient states was never smoker of tobacco. No barriers to communication noted, The patient speaks fluent Barbadian. - Family history: Not pertinent. - : Unable to assess if pt is on anticoagulants. Home medication list is obtained from family members, pill bottles, Unable to Verify Home Med List with the patient / caregiver. - Hospitalizations: : No recent hospitalization is reported. - Exposure Risk Screening:: None identified. - Immunization history:: All immunizations up-to-date. - Social history:: the patient is a non-smoker, the patient does not drink alcohol. ROS: 05:05 All systems are negative except as listed. pc Exam: 05:05 General Appearance: no acute distress, lethargic. pc 05:05 EENT: normal eye inspection, ears, nose and throat normal, mucous membranes dry. 05:05 Neck: The exam reveals no acute abnormalities. ROM is normal and painless. No nuchal rigidity is noted.. 05:05 Respiratory: no respiratory distress, normal breath sounds. 05:05 CVS: regular rhythm, normal S1 and S2, no murmurs, strong peripheral pulses, the patient is tachycardic, at 115 bpm. 05:05 Abdomen: soft, non-tender, no organomegaly, normal bowel sounds. 05:05 Back: normal inspection. 05:05 Skin: skin color is normal, warm, dry. 05:05 Extremities: The extremities have a grossly normal appearance, are non-tender, without acute ROM abnormalities. 05:05 Neuro: oriented x 3, cranial nerves normal as tested, no motor deficits, no sensory deficits. 05:05 Psych: normal mood. Vital Signs: 03:54 BP 112 / 71; Pulse 113; Resp 20; Pulse Ox 98% ; Weight 49.9 kg / 110.01 lbs (M); Pain mlc 0/10; 04:25 Temp 96.2(TE); mlc 05:03 BP 133 / 55 (auto/); mlc 05:03 Pulse 106 MON; Pulse Ox 99% ; mlc 05:32 BP 131 / 64 (auto/); mlc 05:34 Pulse 108 MON; Pulse Ox 99% ; mlc 06:02 BP 121 / 77 (auto/); mlc 06:02 Pulse 106 MON; Pulse Ox 98% ; mlc 06:25 Pulse 108 MON; Pulse Ox 98% ; mlc 06:33 BP 117 / 70 (auto/); mlc MDM: 04:17 IV Saline Lock ordered. pc 04:17 NS 0.9% 1000 ml IV at bolus once ordered. pc 04:17 CBC with Diff Ordered. EDMS 04:17 MED Profile Ordered. EDMS 04:17 Venous Blood Gas (large pea green tube on ice) Ordered. EDMS 04:17 A1C Ordered. EDMS 04:27 Financial registration complete. hs2 04:32 DIFFERENTIAL NO CHARGE Ordered. EDMS 04:33 [facility] [place] was scanned into [employer] and attached to record. hs2 04:47 CBC with Diff Reviewed. pc 04:47 Venous Blood Gas (large pea green tube on ice) Reviewed. pc 04:51 Insulin Regular Human 10 units IVP once ordered. pc 04:51 Insulin Regular Human Infusion (0.1units/kg/hr) 5 units/hr IV at calculated rate Per pc protocol ordered. 04:51 Accucheck hourly ordered. pc 04:52 IV Saline Lock, Place second line, 18G or larger, in A/C vein ordered. pc 04:52 MED Profile Reviewed. pc 04:54 Chest, 1 View Ordered. EDMS 04:54 BED REQUEST+ADM ordered. EDMS 05:05 A1C Reviewed. pc 05:05 Differential Diagnosis: hyperglycemia r/o DKA r/o infection. Plan: labs, IVF, meds. pc Data reviewed: old medical records, vital signs, nurses notes, lab test results, all radiology studies and available results. Test interpretation: LAB - all labs as ordered have been reviewed, interpreted and considered in the overall management of the clinical presentation; Arterial blood gas is normal except. pH: 6.88 X-RAY - interpreted by dc, 1 view chest no acute disease. The patient has been re-examined and re-evaluated. The patient's symptoms have mildly improved after treatment. Physician consultation: Dr. Kiara Nowak was contacted at 05:15, regarding admission. Disposition: The historical points, examination findings, and any diagnostic results supporting the provided diagnosis, were discussed with the patient or legal guardian. The need for further work-up and/or treatment in the hospital was explained. 05:17 NS 0.9 % with KCl 20 mEq/L 1000 ml IV at 200 mL/hr continuous ordered. pc 05:43 Data reviewed: The patient's IO records were accessed, as they were informed. pc 05:43 Admission / Observation Status ordered. EDMS 05:44 URINALYSIS Ordered. EDMS 05:44 URINE CULTURE Ordered. EDMS 05:44 BLOOD CULTURES Ordered. EDMS 06:04 BMP Ordered. EDMS 06:04 Written Provider Order was scanned into [employer] and attached to record. ml3 07:28 ACETONE/KETONE Ordered. EDMS 07:41 BASIC METABOLIC PROFILE Ordered. EDMS 07:42 BASIC METABOLIC PROFILE Ordered. EDMS 07:42 BASIC METABOLIC PROFILE Ordered. EDMS 07:42 BASIC METABOLIC PROFILE Ordered. EDMS 07:42 BASIC METABOLIC PROFILE Ordered. EDMS 11:01 ARTERIAL BLOOD GAS Ordered. EDMS 13:38 Fingerstick Blood Sugar Ordered. EDMS 13:38 Fingerstick Blood Sugar Ordered. EDMS 13:38 Fingerstick Blood Sugar Ordered. EDMS Point of Care Testing: Blood Glucose: 05:00 Blood Glucose: High; mlc 06:00 Blood Glucose: High; mlc 07:03 Blood Glucose: High; mlc Ranges: Administered Medications: 04:24 Drug: NS 0.9% 1000 ml [sodium chloride 0.9 % intravenous solution] Route: IV; Rate: mlc bolus; Site: left antecubital; 05:04 Drug: Insulin Regular Human 10 units [insulin regular human 100 unit/mL injection mlc solution (0.1 mL)] {Co-Signature: patricia (Mike Infante RN).} Route: IVP; Site: left antecubital; 05:04 Drug: Insulin Regular Human Infusion (0.1units/kg/hr) 5 units/hr [insulin regular human mlc 100 unit/mL injection solution] {Co-Signature: patricia (Mike Infante RN).} Route: IV; Rate: calculated rate; Site: left antecubital; 05:55 Drug: NS 0.9 % with KCl 1000 ml [potassium chloride 20 mEq/L in 0.9 % sodium chloride mlc intravenous] {Co-Signature: patricia (Mike Infante RN).} Route: IV; Rate: 200 mL/hr; Site: right hand; Critical Care Time: 05:05 Critical care time: Bedside Care: 50 minutes, Consultation: 10 minutes, Family pc Intervention: 15 minutes. Total time: 75 minutes Signatures: Dispatcher [employer] EDMS Radames Nguyen MD MD pc Peters, Mary, RN RN mcp Lopresti, Mary-Elizabeth, [employer] [facility] ml3 Swapna Bruno RN RN mlc Stanton, Hillary, Reg Reg hs2 Stephen Thakur RN RN Mike Infante RN The chart was reviewed and I authenticate all verbal orders and agree with the evaluation and treatment provided.Corrections: (The following items were deleted from the chart) 07:18 05:44 ACETONE/KETONE ordered. EDMS EDMS 07:28 07:19 ACETONE/KETONE ordered. EDMS EDMS Attachments: 04:33 [facility] [place] hs2 06:04 Written Provider Order ml3 Chart Complete MTDD
[2016-04-22] MEDS ORDERED: diphenhydrAMINE 25 MG CAP PO PRN (18:45)
[2016-04-23] MEDS: NYSTATIN 500,000 U/5 ML SUSP UDC SS SCH ×4 (00:39→18:05)
[2016-04-23 05:40] LABS: BASO # 0.1 K/mm3 (0.0-0.2); BASO % 0.7 % (0.0-1.0); EOS # 0.1 K/mm3 (0.0-0.50); EOS % 0.7 % (0.0-3.0); LARGE UNSTAINED CELL # 0.1 K/mm3 (0.0-0.4); LARGE UNSTAINED CELL % 1.1 % (0.0-4.0); LYMPH % 16.6 % (24.0-44.0); MEAN CORPUSCULAR HEMOGLOBIN 29.3 pg (27.0-33.0); MEAN CORPUSCULAR HGB CONC 35.8 g/dl (32.0-36.5); MEAN CORPUSCULAR VOLUME 81.8 fl (80.0-96.0); MONO # 0.3 K/mm3 (0.0-0.8); MONO % 2.8 % (0.0-5.0); NEUTROPHILS # 8.7 K/mm3 (1.8-7.7); NEUTROPHILS % 78.1 % (36.0-66.0); PLATELET COUNT, AUTOMATED 223 k/mm3 (150-450); RED CELL DISTRIBUTION WIDTH 13.4 % (11.5-14.5); WHITE BLOOD COUNT 11.1 K/mm3 (4.0-10.0)
[2016-04-23 05:50] LABS: ANION GAP 8 MEQ/L (8-16); BLOOD UREA NITROGEN 12 MG/DL (7-18); CALCIUM LEVEL 8.6 MG/DL (8.8-10.2); CARBON DIOXIDE LEVEL 22 MEQ/L (21-32); CHLORIDE LEVEL 111 MEQ/L (98-107); CREATININE FOR GFR 0.65 MG/DL (0.55-1.02); GLOMERULAR FILTRATION RATE > 60.0 (>39); GLUCOSE, FASTING 173 MG/DL (83-110); MAGNESIUM LEVEL 1.9 MG/DL (1.8-2.4); POTASSIUM SERUM 3.6 MEQ/L (3.5-5.1); SODIUM LEVEL 141 MEQ/L (136-145)
[2016-04-23] MEDS: SLF 3 ML SYR IV SCH ×3 (06:00→22:00)
[2016-04-23] MEDS: HumaLOG INSULIN (NovoLOG) PER UNIT SC SCH ×4 (09:04→21:00)
[2016-04-23] MEDS: PANTOPRAZOLE 40MG INJ (PROTONIX) (C9113) IV SCH (09:05)
[2016-04-23] MEDS: HEPARIN SOD (PORCINE) 5000 UNITS/ML VIAL SQ SCH ×2 (09:05→21:00)
[2016-04-23] MEDS: LEVEMIR (INSULIN DETEMIR) 1 UNITS/0.01ML SC SCH (09:35)
--- NOTE | 2016-04-23 11:33 | IPNPDOC ---
Assessment/Plan Date Seen The patient was seen on 04/23/16. Plan / VTE VTE Prophylaxis Ordered?: Yes Plan Plan Text 1. Diabetic ketoacidosis secondary to dietary indiscretion On carb consistent diet and subcutaneous insulin Blood sugar levels have remained stable We will continue to monitor her course I did have an extensive conversation with the patient with her daughter at bedside and her son on speaker phone about the need for the patient to adhere to her insulin therapy and practice dietary discretion. I will give the patient a pamphlet with information about diabetes written in [place] so that she can better educate herself about her disease and the management of it. 2. Acute kidney injury secondary to intravascular volume depletion, resolved Serum creatinine has returned back to within normal limits 3. Leukocytosis: WBC trending downward from 32K to 18K to 15K to 11 K today. I do believe that the patient's leukocytosis is reactive in nature secondary to diabetic ketoacidosis Thus far no overt source of infectious etiology has been identified We will continue to monitor her CBC DVT prophylaxis: Heparin subcutaneous Disposition-the patient does not have any insurance at this time, and we will need to set the patient up with insulin medication, and supplies for diabetic care. We will titrate the patient's insulin needs over the weekend, and arrange for medication/supplies with the help of PFS. Subjective Review of Systems CC/HPI The patient is a 70-year-old female admitted with a reason for visit of Dka Type 2 Not At Goal. General: Denies: Chills, Night Sweats Constitutional: Denies: Chills, Fever Eyes: Denies: Pain, Vision change ENT: Denies: Ear Pain, Head Aches Skin: Denies: Lesions, Rash Pulmonary: Denies: Cough, Dyspnea Cardiovascular: Denies: Chest Pain, Palpitations Gastrointestinal: Denies: Abdominal Pain, Nausea, Vomiting Hematologic: Denies: Bleeding Excessively, Bruising Musculoskeletal: Denies: Back Pain, Neck Pain Objective Physical Examination General Exam: Positive: Alert, Cooperative, No Acute Distress ENT Exam: Positive: Atraumatic, Mucous membr. moist/pink Neck Exam: Negative: JVD Chest Exam: Positive: Clear to auscultation, Normal air movement Heart Exam: Positive: Normal S1, Normal S2, Rate Normal Telemetry: Positive: Sinus Abdomen Exam: Positive: Soft, Negative: Tenderness Extremity Exam: Negative: Edema, Tenderness Vital Signs/I&O Vital Signs Date Time Temp Pulse Resp B/P Pulse Ox O2 Delivery O2 Flow Rate FiO2 04/22/16 20:00 Room Air 04/22/16 15:00 98.8 83 16 120/72 98 I&O- Last 24 Hours up to 6 AM 04/23/16 06:00 Intake Total 1540 ml Output Total 0 ml Balance 1540 ml Laboratory Data Labs 24H Laboratory Tests 2 04/22/16 11:52: Bedside Glucose (Misc Panel) 146H 04/22/16 17:46: Bedside Glucose (Misc Panel) 184H 04/22/16 19:48: Bedside Glucose (Misc Panel) 236H 04/23/16 05:23: Anion Gap 8, White Blood Count 11.1H, Red Blood Count 3.98L, Hemoglobin 11.7L, Hematocrit 32.6L, Mean Corpuscular Volume 81.8, Mean Corpuscular Hemoglobin 29.3 , Mean Corpuscular Hemoglobin Concent 35.8, Red Cell Distribution Width 13.4, Platelet Count 223, Neutrophils (%) (Auto) 78.1H, Lymphocytes (%) (Auto) 16.6L, Monocytes (%) (Auto) 2.8, Eosinophils (%) (Auto) 0.7, Basophils (%) (Auto) 0.7, Neutrophils # (Auto) 8.7H, Lymphocytes # (Auto) 2.0, Monocytes # (Auto) 0.3, Eosinophils # (Auto) 0.1, Basophils # (Auto) 0.1, Blood Urea Nitrogen 12, Creatinine 0.65, Sodium Level 141, Potassium Level 3.6, Chloride Level 111H, Carbon Dioxide Level 22, Calcium Level 8.6L, Glomerular Filtration Rate > 60.0, Large Unclassified Cells # 0.1, Large Unclassified Cells % 1.1, Magnesium Level 1.9 CBC/BMP Laboratory Tests 04/23/16 05:23 Calcium Level 8.6 L, Red Blood Count 3.98 L, Mean Corpuscular Volume 81.8, Mean Corpuscular Hemoglobin 29.3, Mean Corpuscular Hemoglobin Concent 35.8, Red Cell Distribution Width 13.4, Neutrophils (%) (Auto) 78.1 H, Lymphocytes (%) (Auto) 16.6 L, Monocytes (%) (Auto) 2.8, Eosinophils (%) (Auto) 0.7, Basophils (%) ( Auto) 0.7, Neutrophils # (Auto) 8.7 H, Lymphocytes # (Auto) 2.0, Monocytes # ( Auto) 0.3, Eosinophils # (Auto) 0.1, Basophils # (Auto) 0.1 FSBS Laboratory Tests Test 04/22/16 11:52 04/22/16 17:46 04/22/16 19:48 Range/Units Bedside Glucose (Misc Panel) 146 184 236 83-110 MG/DL Microbiology Microbiology 04/20/16 Blood Culture - Preliminary, Resulted No Growth after 72 hours. All specime... 04/20/16 MRSA Screen - Final, Complete BHARAT CHAMORRO MD Apr 23, 2016 11:33
[2016-04-23 14:00] VITALS: BP 108/67
[2016-04-23 22:00] VITALS: BP 109/64
[2016-04-24] MEDS: SLF 3 ML SYR IV SCH ×3 (05:57→21:44)
[2016-04-24] MEDS: NYSTATIN 500,000 U/5 ML SUSP UDC SS SCH ×4 (05:57→17:09)
[2016-04-24 06:00] VITALS: BP 124/71
[2016-04-24 06:35] LABS: BASO # 0.1 K/mm3 (0.0-0.2); EOS # 0.1 K/mm3 (0.0-0.50); EOS % 0.6 % (0.0-3.0); LARGE UNSTAINED CELL # 0.2 K/mm3 (0.0-0.4); LARGE UNSTAINED CELL % 1.5 % (0.0-4.0); LYMPH # 2.7 K/mm3 (1.5-4.5); LYMPH % 25.7 % (24.0-44.0); MEAN CORPUSCULAR HEMOGLOBIN 28.6 pg (27.0-33.0); MEAN CORPUSCULAR HGB CONC 34.9 g/dl (32.0-36.5); MONO # 0.5 K/mm3 (0.0-0.8); MONO % 4.5 % (0.0-5.0); NEUTROPHILS # 6.6 K/mm3 (1.8-7.7); NEUTROPHILS % 66.7 % (36.0-66.0); PLATELET COUNT, AUTOMATED 250 k/mm3 (150-450); RED CELL DISTRIBUTION WIDTH 13.4 % (11.5-14.5); WHITE BLOOD COUNT 9.9 K/mm3 (4.0-10.0)
[2016-04-24 06:48] LABS: ANION GAP 9 MEQ/L (8-16); BLOOD UREA NITROGEN 13 MG/DL (7-18); CARBON DIOXIDE LEVEL 26 MEQ/L (21-32); CHLORIDE LEVEL 106 MEQ/L (98-107); CREATININE FOR GFR 0.68 MG/DL (0.55-1.02); GLOMERULAR FILTRATION RATE > 60.0 (>39); GLUCOSE, FASTING 204 MG/DL (83-110); MAGNESIUM LEVEL 1.8 MG/DL (1.8-2.4); POTASSIUM SERUM 3.7 MEQ/L (3.5-5.1); SODIUM LEVEL 141 MEQ/L (136-145)
[2016-04-24] MEDS: HEPARIN SOD (PORCINE) 5000 UNITS/ML VIAL SQ SCH ×2 (08:25→20:53)
[2016-04-24] MEDS: HumaLOG INSULIN (NovoLOG) PER UNIT SC SCH ×5 (08:25→20:53)
[2016-04-24] MEDS: LEVEMIR (INSULIN DETEMIR) 1 UNITS/0.01ML SC SCH (08:26)
[2016-04-24] MEDS: PANTOPRAZOLE 40MG TAB (PROTONIX) PO SCH (09:23)
--- NOTE | 2016-04-24 13:25 | IPNPDOC ---
Assessment/Plan Date Seen The patient was seen on 04/24/16. Plan / VTE VTE Prophylaxis Ordered?: Yes Plan Plan Text 1. Diabetic ketoacidosis secondary to dietary indiscretion On carb consistent diet and subcutaneous insulin Blood sugar levels have remained stable We will continue to monitor her glucose levels and titrate SC Insulin accordingly We will continue to monitor her course I did have an extensive conversation with the patient with her daughter at bedside and her son on speaker phone about the need for the patient to adhere to her insulin therapy and practice dietary discretion. I also gave the patient a pamphlet with information about diabetes written in [place]ese so that she can better educate herself about her disease and the management of it. 2. Acute kidney injury secondary to intravascular volume depletion, resolved Serum creatinine has returned back to within normal limits 3. Leukocytosis, resolved WBC wnl today I do believe that the patient's leukocytosis was reactive in nature secondary to diabetic ketoacidosis No overt source of infectious etiology has been identified We will continue to monitor her CBC DVT prophylaxis: Heparin subcutaneous Disposition-the patient apparently does not have adequate insurance at this time , and we will need to set the patient up with insulin medication, and supplies for diabetic care. We will arrange for medication/supplies with the help of PFS. Subjective Review of Systems CC/HPI The patient is a 70-year-old female admitted with a reason for visit of Dka Type 2 Not At Goal. General: Denies: Chills, Night Sweats Constitutional: Denies: Chills, Fever Eyes: Denies: Pain, Vision change ENT: Denies: Ear Pain, Head Aches Skin: Denies: Lesions, Rash Pulmonary: Denies: Cough, Dyspnea Cardiovascular: Denies: Chest Pain, Palpitations Gastrointestinal: Denies: Nausea, Vomiting Hematologic: Denies: Bleeding Excessively, Bruising Objective Physical Examination General Exam: Positive: Alert, Cooperative, No Acute Distress ENT Exam: Positive: Atraumatic, Mucous membr. moist/pink Neck Exam: Negative: JVD Chest Exam: Positive: Clear to auscultation, Normal air movement Heart Exam: Positive: Normal S1, Normal S2, Rate Normal Telemetry: Positive: Sinus Abdomen Exam: Positive: Soft, Negative: Tenderness Extremity Exam: Negative: Edema, Tenderness Vital Signs/I&O Vital Signs Date Time Temp Pulse Resp B/P Pulse Ox O2 Delivery O2 Flow Rate FiO2 04/24/16 09:00 Room Air 04/24/16 06:00 98.4 75 20 124/71 96 I&O- Last 24 Hours up to 6 AM 04/24/16 06:00 Intake Total 1560 ml Output Total 0 ml Balance 1560 ml Laboratory Data Labs 24H Laboratory Tests 2 04/23/16 16:53: Bedside Glucose (Misc Panel) 193H 04/23/16 19:49: Bedside Glucose (Misc Panel) 195H 04/24/16 06:08: Anion Gap 9, White Blood Count 9.9, Red Blood Count 4.14, Hemoglobin 11.8L, Hematocrit 34.0L, Mean Corpuscular Volume 82.0, Mean Corpuscular Hemoglobin 28.6 , Mean Corpuscular Hemoglobin Concent 34.9, Red Cell Distribution Width 13.4, Platelet Count 250, Neutrophils (%) (Auto) 66.7H, Lymphocytes (%) (Auto) 25.7, Monocytes (%) (Auto) 4.5, Eosinophils (%) (Auto) 0.6, Basophils (%) (Auto) 1.0, Neutrophils # (Auto) 6.6, Lymphocytes # (Auto) 2.7, Monocytes # (Auto) 0.5, Eosinophils # (Auto) 0.1, Basophils # (Auto) 0.1, Blood Urea Nitrogen 13, Creatinine 0.68, Sodium Level 141, Potassium Level 3.7, Chloride Level 106, Carbon Dioxide Level 26, Calcium Level 9.0, Glomerular Filtration Rate > 60.0, Large Unclassified Cells # 0.2, Large Unclassified Cells % 1.5, Magnesium Level 1.8 04/24/16 11:39: Bedside Glucose (Misc Panel) 340H CBC/BMP Laboratory Tests 04/24/16 06:08 Calcium Level 9.0, Red Blood Count 4.14, Mean Corpuscular Volume 82.0, Mean Corpuscular Hemoglobin 28.6, Mean Corpuscular Hemoglobin Concent 34.9, Red Cell Distribution Width 13.4, Neutrophils (%) (Auto) 66.7 H, Lymphocytes (%) (Auto) 25.7, Monocytes (%) (Auto) 4.5, Eosinophils (%) (Auto) 0.6, Basophils (%) (Auto ) 1.0, Neutrophils # (Auto) 6.6, Lymphocytes # (Auto) 2.7, Monocytes # (Auto) 0.5, Eosinophils # (Auto) 0.1, Basophils # (Auto) 0.1 FSBS Laboratory Tests Test 04/23/16 16:53 04/23/16 19:49 04/24/16 11:39 Range/Units Bedside Glucose (Misc Panel) 193 195 340 83-110 MG/DL Microbiology Microbiology 04/20/16 Blood Culture - Preliminary, Resulted No Growth after 72 hours. All specime... 04/20/16 MRSA Screen - Final, Complete BHARAT CHAMORRO MD Apr 24, 2016 13:25
[2016-04-24 14:00] VITALS: BP 118/62
[2016-04-24 22:00] VITALS: BP 117/64
[2016-04-25] MEDS: NYSTATIN 500,000 U/5 ML SUSP UDC SS SCH ×4 (05:38→17:29)
[2016-04-25] MEDS: SLF 3 ML SYR IV SCH ×3 (05:38→22:00)
[2016-04-25 06:00] VITALS: BP 109/58
[2016-04-25 07:03] LABS: ANION GAP 6 MEQ/L (8-16); BLOOD UREA NITROGEN 16 MG/DL (7-18); CALCIUM LEVEL 8.8 MG/DL (8.8-10.2); CARBON DIOXIDE LEVEL 31 MEQ/L (21-32); CHLORIDE LEVEL 101 MEQ/L (98-107); CREATININE FOR GFR 0.84 MG/DL (0.55-1.02); GLOMERULAR FILTRATION RATE > 60.0 (>39); GLUCOSE, FASTING 300 MG/DL (83-110); MAGNESIUM LEVEL 1.7 MG/DL (1.8-2.4); POTASSIUM SERUM 4.3 MEQ/L (3.5-5.1); SODIUM LEVEL 138 MEQ/L (136-145)
[2016-04-25 07:10] LABS: BASO % 0.3 % (0.0-1.0); EOS # 0.1 K/mm3 (0.0-0.50); EOS % 1.1 % (0.0-3.0); LARGE UNSTAINED CELL # 0.2 K/mm3 (0.0-0.4); LARGE UNSTAINED CELL % 2.4 % (0.0-4.0); LYMPH # 2.1 K/mm3 (1.5-4.5); MEAN CORPUSCULAR HEMOGLOBIN 28.8 pg (27.0-33.0); MEAN CORPUSCULAR HGB CONC 33.7 g/dl (32.0-36.5); MEAN CORPUSCULAR VOLUME 85.4 fl (80.0-96.0); MONO # 0.5 K/mm3 (0.0-0.8); MONO % 6.5 % (0.0-5.0); NEUTROPHILS # 4.7 K/mm3 (1.8-7.7); NEUTROPHILS % 61.7 % (36.0-66.0); PLATELET COUNT, AUTOMATED 276 k/mm3 (150-450); RED CELL DISTRIBUTION WIDTH 12.8 % (11.5-14.5); WHITE BLOOD COUNT 7.5 K/mm3 (4.0-10.0)
[2016-04-25] MEDS: HumaLOG INSULIN (NovoLOG) PER UNIT SC SCH ×6 (07:58→21:00)
[2016-04-25] MEDS ORDERED: MAGNESIUM OXIDE 400 MG TAB (MAG-OX) PO ONE (08:30)
[2016-04-25 08:45] VITALS: BP 124/73
[2016-04-25] MEDS ORDERED: LEVEMIR (INSULIN DETEMIR) 1 UNITS/0.01ML SC SCH (09:00)
[2016-04-25] MEDS: HEPARIN SOD (PORCINE) 5000 UNITS/ML VIAL SQ SCH ×2 (09:32→21:30)
[2016-04-25] MEDS: PANTOPRAZOLE 40MG TAB (PROTONIX) PO SCH (09:32)
[2016-04-25 14:00] VITALS: BP 109/67
--- NOTE | 2016-04-25 14:01 | IPN ---
DATE: 04/25/2016 70-year-old feet female seen at bedside. Family is present this morning. We did discuss disposition for her when she is ready to transition home. She will need some further diabetic teaching and to make sure her insulin supplies are in placed before discharge as well as a close followup. OBJECTIVE: 97.9, pulse 76, respiratory rate 18, BP 124/73, SPO2 is 97% on room air. HEENT: Unremarkable. Lungs: Clear. Heart: Regular rate and rhythm. Abdomen: Soft. Extremities: No edema or calf tenderness. LABORATORY DATA: White count 7.5, hemoglobin 11, platelets are 276,000. Sodium is 138, potassium 4.3, chloride 101, bicarb 31, anion gap 6, BUN 16, creatinine 0.84, glucose is 300. ASSESSMENT/PLAN: 1. Uncontrolled diabetes, hemoglobin A1c on admission was 12. She continues on consistent carbohydrate diet. Will further modify her Levemir today. We will increase it to 22 units. She continues with sliding scale insulin as well. Again we had a discussion with her daughter present at bedside. She was able to translate for us and will continue with diabetic education. Patient and family services (PFS) consult to make sure that we do have diabetic supplies in place. 2. Acute kidney injury with hypovolemia resolved with creatinine at baseline. 3. Leukocytosis, resolved. No signs of infection, most likely is demargination from stress 4. Deep venous thrombosis (DVT) prophylaxis with subcutaneous heparin. DISPOSITION: PFS is on board. Will see if we get her discharged perhaps tomorrow or the next day once her diabetic supplies and insulin and testing strips as well as glucometer is in place. She does have a follow-up appointment already scheduled with the resident clinic on 05/05/2016 at 10:30.
[2016-04-25 22:00] VITALS: BP 116/59
[2016-04-26] MEDS: SLF 3 ML SYR IV SCH ×2 (05:53→14:00)
[2016-04-26] MEDS: NYSTATIN 500,000 U/5 ML SUSP UDC SS SCH ×3 (05:53→12:51)
[2016-04-26 06:00] VITALS: BP 95/54
[2016-04-26 06:52] LABS: BASO % 0.5 % (0.0-1.0); EOS # 0.1 K/mm3 (0.0-0.50); EOS % 1.6 % (0.0-3.0); LARGE UNSTAINED CELL # 0.2 K/mm3 (0.0-0.4); LARGE UNSTAINED CELL % 2.8 % (0.0-4.0); LYMPH # 1.8 K/mm3 (1.5-4.5); LYMPH % 28.7 % (24.0-44.0); MEAN CORPUSCULAR HEMOGLOBIN 28.1 pg (27.0-33.0); MEAN CORPUSCULAR HGB CONC 32.9 g/dl (32.0-36.5); MEAN CORPUSCULAR VOLUME 85.4 fl (80.0-96.0); MONO # 0.4 K/mm3 (0.0-0.8); MONO % 6.1 % (0.0-5.0); NEUTROPHILS # 3.8 K/mm3 (1.8-7.7); NEUTROPHILS % 60.3 % (36.0-66.0); PLATELET COUNT, AUTOMATED 320 k/mm3 (150-450); WHITE BLOOD COUNT 6.3 K/mm3 (4.0-10.0)
[2016-04-26] MEDS ORDERED: INSUHUMDS SC (07:06)
[2016-04-26] MEDS ORDERED: [UNRECOGNIZED DRUG - OTHER] XX (07:06)
[2016-04-26] MEDS ORDERED: INSULANT SC (07:06)
[2016-04-26 07:12] LABS: ANION GAP 5 MEQ/L (8-16); BLOOD UREA NITROGEN 14 MG/DL (7-18); CALCIUM LEVEL 9.2 MG/DL (8.8-10.2); CARBON DIOXIDE LEVEL 32 MEQ/L (21-32); CHLORIDE LEVEL 102 MEQ/L (98-107); GLOMERULAR FILTRATION RATE > 60.0 (>39); GLUCOSE, FASTING 249 MG/DL (83-110); MAGNESIUM LEVEL 1.7 MG/DL (1.8-2.4); POTASSIUM SERUM 3.7 MEQ/L (3.5-5.1); SODIUM LEVEL 139 MEQ/L (136-145)
[2016-04-26] MEDS: PANTOPRAZOLE 40MG TAB (PROTONIX) PO SCH (08:23)
[2016-04-26] MEDS: HEPARIN SOD (PORCINE) 5000 UNITS/ML VIAL SQ SCH (08:24)
[2016-04-26] MEDS: HumaLOG INSULIN (NovoLOG) PER UNIT SC SCH ×4 (08:24→12:51)
[2016-04-26] MEDS ORDERED: LEVEMIR (INSULIN DETEMIR) 1 UNITS/0.01ML SC SCH (09:00)
[2016-04-26 14:00] VITALS: BP 116/68
[2016-04-26] MEDS ORDERED: HUMA100I5 SC (14:16)
[2016-04-26] MEDS ORDERED: LEVE1INJ5 SC (14:16)
--- NOTE | 2016-04-26 20:08 | DSES ---
DATE OF ADMISSION: 04/20/2016 DATE OF DISCHARGE: 04/26/2016 PRIMARY CARE PROVIDER: Established with the resident clinic. CONSULTANTS: None. PROCEDURES: None. COMPLICATIONS: None. ADMISSION/DISCHARGE DIAGNOSES: 1. Generalized weakness. 2. Diabetic ketoacidosis with poor control of blood sugars. Hemoglobin A1/c 12.4. 3. Pseudohyponatremia related to elevated blood sugar. 4. Acute kidney injury, resolved. 5. Leukocytosis, likely stress demargination, resolved. BRIEF HOSPITAL COURSE: Ms. Polo is a pleasant 70-year-old, [place] speaking, female with a history of diabetes and poor compliance. She was brought to the emergency department by her daughter and granddaughter because she seemed to have increased lethargy and weakness. They did say that she had this progressing over the last few days, and the patient had been trying to increasing amounts of water, but had continued to develop some increased lethargy. In the emergency department, she was found to have a glucose of 887, hemoglobin A1/c of 12.4, pH of 6.86 on ABG with a bicarbonate of 6 and an anion gap of 30. At any rate, she was admitted with DKA protocol, intravenous insulin drip and intravenous fluids. Her sodium was noted to be 126 at the time, but this was felt to be artificially low due to the extremely high blood sugar and it did correct over time with correcting the blood sugar without any further intervention. Her acute kidney injury did gradually improve as well. On the day of discharge, she was felt to be back to her baseline. For further information regarding intake physical, laboratories, diagnostics, please refer to the history and physical. PHYSICAL EXAMINATION: Today, temperature is 97.2, pulse 72, respiratory rate 18, blood pressure 95/54 with a mean arterial pressure of 68, SpO2 96% on room air. GENERAL: The patient appears to be in no acute distress. Is alert and oriented. HEENT: Unremarkable. LUNGS: Clear. HEART: Regular rate and rhythm. ABDOMEN: Soft. EXTREMITIES: No edema. No calf tenderness. LABORATORY DATA: White count 6.3, hemoglobin 10.6, and platelets are 320,000. Sodium 139, potassium 3.7, chloride 102, bicarbonate 32, anion gap 5, BUN 14, creatinine 0.8, glucose 249, magnesium 1.7. DISCHARGE CONDITION: Good. DISPOSITION: Discharge to home. DISCHARGE MEDICATIONS: - Levemir Flex-Touch 22 units daily - Humalog Quick Pen with sliding scale insulin DISCHARGE INSTRUCTIONS: Discharge to home. Consistent carbohydrate diet. She was given a copy of sliding scale for Humalog based on her fingersticks before meals. She does have a followup appointment with the resident clinic on 05/05/2016 at 10:30. Otherwise, she is encouraged to return to the emergency department if symptoms should progress or become worse. She did complete her diabetic teaching here in the hospital and was able to demonstrate that she could give herself insulin injections reliably. Discharge took approximately 35 minutes.
[2016-04-26] MEDS ORDERED: [UNRECOGNIZED DRUG - CODE] XX (22:44)
== END 2016-04-26 16:33 | disposition home health service (06) | DRG 638 ==
LOC: M ED 03:44 → M ED INP 05:19 → M ICU 14:10 → M MS5PR 04-22 15:18
PROVIDERS: ADMIT Hospitalist; ATTEND General Practice
DX: E13.10 Other specified diabetes mellitus with ketoacidosis without coma (principal); E87.1 Hypo-osmolality and hyponatremia; N17.9 Acute kidney failure, unspecified; Z91.11 Patient's noncompliance with dietary regimen; E86.0 Dehydration; Z79.899 Other long term (current) drug therapy

== ENCOUNTER 2016-04-26 23:36 | Emergency (ER) | payer MEDICARE ==
[~2016-04-26 23:36] MED LIST: HUMA100I5 SC; INSUHUMDS SC; INSULANT SC; LEVE1INJ5 SC; [UNRECOGNIZED DRUG - CODE] XX; [UNRECOGNIZED DRUG - OTHER] XX
--- NOTE | 2016-04-27 01:01 | EDDOCDS ---
Nurse's Notes [facility] Name: Bri Skinner Age: 70 yrs Sex: Female : 1945 Arrival Date: 04/26/2016 Time: 23:36 Bed I2 / M2 Private MD: Cookie, Family Diagnosis: Encounter for issue of repeat prescription Presentation: 04/26 23:46 Presenting complaint: Patient states: Discharged from the hospital today and and needs lf1 prescription for needles to go with her flexpens from the pharmacy. Pt.'s daughter reports that she took her blood sugar tonight and it was 220 and then went up to 388. Pt reports that she feels "fine" at this time. Adult Sepsis Screening: The patient does not have new or worsening altered mentation. Patient's respiratory rate is less than 22. Systolic blood pressure is greater than 100. Patient has a qSOFA score of 0- Negative Sepsis Screen. Suicide/Homicide risk assessment- the patient denies having any suicidal and/or homicidal ideations and does not present with any other emotional, behavioral or mental health complaints. 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 Transition of care: patient was not received from another setting of care. 23:46 Acuity: ESTEFANI Level 4 lf1 23:46 Method Of Arrival: Walkin/Carried/Asstd lf1 Triage Assessment: 23:54 General: Appears in no apparent distress, comfortable, Behavior is cooperative. Pain: lf1 Denies pain. Neurological: Level of Consciousness is awake, alert. Respiratory: Respiratory effort is even, unlabored. GI: Denies nausea, vomiting. Historical: - Allergies: No known drug Allergies; - Home Meds: 1. Levemir flexTouch 22 units once daily 2. Humalog KwikPen Sliding Scale - PMHx: Depression; Diabetes - NIDDM: uncontrolled; - PSHx: ; - Social history: Smoking status: Patient states was never smoker of tobacco. Preferred Language: Upper Sorbian, The patient speaks a little Burkinan. - Family history: Not pertinent. - : The pt / caregiver states he / she is not on anticoagulants. Home medication list is obtained from family members. - Exposure Risk Screening:: None identified. Screenin/02 00:58 Screening information is obtained from family members. Fall risk: At risk due to age, js15 use of walker. Assistance ADL's: requires no assistance with activities of daily living. Abuse/DV Screen: The patient / caregiver reports he/she is: not in a situation that causes fear, pain or injury. Nutritional screening: No deficits noted. Advance Directives: There is no active DNR order. home support is adequate. Assessment: 00:58 General: Appears in no apparent distress, Behavior is cooperative. Neurological: Level js15 of Consciousness is awake, alert. Respiratory: Airway is patent Respiratory effort is even, unlabored, Respiratory pattern is regular, symmetrical. Derm: Skin is normal. Vital Signs: 04/26 23:39 BP 144 / 74; Pulse 71; Resp 18 S; Temp 96.6(O); Pulse Ox 97% on R/A; Weight 39.01 kg gr2 (R); Height 5 ft. 5 in. (165.10 cm) (R); Pain 2/10; 23:39 Body Mass Index 14.31 (39.01 kg, 165.10 cm) gr2 Vitals: 23:39 Log In Time: April 26, 2016 at 23:39. gr2 ED Course: 23:38 Patient visited by Norah Persaud. gr2 23:38 Unknown, Family Dr is Private Physician. gr2 23:38 Patient moved to Waiting gr2 23:41 Patient visited by Norah Persaud. gr2 23:41 Patient moved to Pre RCE gr2 23:52 Triage Initiated lf1 04/27 00:35 Paolo Lomeli PA-C is PHCP. ar2 00:35 Hunter Ace DO is Attending Physician. ar2 00:35 Patient visited by Paolo Lomeli PA-C. ar2 00:35 Patient moved to I2 / M2 lf1 00:42 [facility] is Referral Physician. ar2 00:58 The patient / caregiver is instructed regarding the plan of care and ED course. js15 00:58 No IV's were initiated during this patient's visit. No procedures done that require js15 assistance. Order Results: Lab Order: Fingerstick Blood Sugar; SPEC'M 04/27/16 00:40 Test: BEDSIDE GLUCOSE; Value: 207; Range: 83-110; Abnormal: Above high normal; Units: MG/DL; Status: F Outcome: 00:44 Discharge ordered by Provider. ar2 00:58 Discharge Assessment: Patient awake, alert and oriented x 3. No cognitive and/or js15 functional deficits noted. Patient verbalized understanding of disposition instructions. patient administered narcotics - no. The following High Risk Discharge criteria are identified: None. Discharged to home ambulatory, with family. Condition: stable. Discharge instructions given to patient, Instructed on discharge instructions, follow up and referral plans. medication usage, Demonstrated understanding of instructions, medications, Pt was receptive of discharge instructions/ teaching. No special radiology studies were completed. Property sent home with patient. 01:00 Patient left the ED. js15 Signatures: Maria Isabel Worrell,RN RN lf1 Paolo Lomeli, PALauraC PA-Della ar2 Norah Persaud gr2 Tammy Mayfield,RN RN js15 OUMAR
--- NOTE | 2016-04-27 01:01 | EDDOCDS ---
Physician Documentation [facility] Name: Bri Skinner Age: 70 yrs Sex: Female : 1945 Arrival Date: 04/26/2016 Time: 23:36 Bed I2 / M2 Private MD: Unknown, Family Disposition: 04/27/16 00:44 Discharged to Home/Self Care. Impression: Encounter for issue of repeat prescription. - Condition is Stable. - Discharge Instructions: Blood Glucose Monitoring, Adult, Type 2 Diabetes Mellitus, Adult. - Prescriptions for Diabetic Supplies, Miscellan. - Dispense 60 (sixty) without refill, sig: Use as directed. - Medication Reconciliation, Local Pharmacy Hours form. - Follow up: [facility]; When: As previously arranged; Reason: Recheck today's complaints, Continuance of care, To establish care. Follow up: Emergency Department; When: As needed; Reason: blood sugar greater than 300 or less than 70, nausea, headache . - Problem is new. - Symptoms are unchanged. Historical: - Allergies: No known drug Allergies; - Home Meds: 1. Levemir flexTouch 22 units once daily 2. Humalog KwikPen Sliding Scale - PMHx: Depression; Diabetes - NIDDM: uncontrolled; - PSHx: ; - Social history: Smoking status: Patient states was never smoker of tobacco. Preferred Language: Korean, The patient speaks a little Tuvaluan. - Family history: Not pertinent. - : The pt / caregiver states he / she is not on anticoagulants. Home medication list is obtained from family members. - Exposure Risk Screening:: None identified. Vital Signs: 04/26 23:39 BP 144 / 74; Pulse 71; Resp 18 S; Temp 96.6(O); Pulse Ox 97% on R/A; Weight 39.01 kg / gr2 86 lbs (R); Height 5 ft. 5 in. (165.10 cm) (R); Pain 2/10; 23:39 Body Mass Index 14.31 (39.01 kg, 165.10 cm) gr2 MDM: 04/27 00:29 Accucheck ordered. ar2 00:47 Fingerstick Blood Sugar Ordered. EDMS Signatures: Dispatcher [employer] EDMS Maria Isabel Worrell RN RN lf1 Paolo Lomeli, PA-C PA-C ar2 Tammy Mayfield,RN RN js15 CHEOD
--- NOTE | 2016-04-29 02:01 | EDDOCDS ---
Physician Documentation [facility] Name: Bri Skinner Age: 70 yrs Sex: Female : 1945 Arrival Date: 04/26/2016 Time: 23:36 Bed I2 / M2 Private MD: Unknown, Family Disposition: 04/27/16 00:44 Discharged to Home/Self Care. Impression: Encounter for issue of repeat prescription. - Condition is Stable. - Discharge Instructions: Blood Glucose Monitoring, Adult, Type 2 Diabetes Mellitus, Adult. - Prescriptions for Diabetic Supplies, Miscellan. - Dispense 60 (sixty) without refill, sig: Use as directed. - Medication Reconciliation, Local Pharmacy Hours form. - Follow up: [facility]; When: As previously arranged; Reason: Recheck today's complaints, Continuance of care, To establish care. Follow up: Emergency Department; When: As needed; Reason: blood sugar greater than 300 or less than 70, nausea, headache . - Problem is new. - Symptoms are unchanged. Historical: - Allergies: No known drug Allergies; - Home Meds: 1. Levemir flexTouch 22 units once daily 2. Humalog KwikPen Sliding Scale - PMHx: Depression; Diabetes - NIDDM: uncontrolled; - PSHx: ; - Social history: Smoking status: Patient states was never smoker of tobacco. Preferred Language: Greenlandic, The patient speaks a little French. - Family history: Not pertinent. - : The pt / caregiver states he / she is not on anticoagulants. Home medication list is obtained from family members. - Exposure Risk Screening:: None identified. Vital Signs: 04/26 23:39 BP 144 / 74; Pulse 71; Resp 18 S; Temp 96.6(O); Pulse Ox 97% on R/A; Weight 39.01 kg / gr2 86 lbs (R); Height 5 ft. 5 in. (165.10 cm) (R); Pain 2/10; 23:39 Body Mass Index 14.31 (39.01 kg, 165.10 cm) gr2 MDM: 04/27 00:29 Accucheck ordered. ar2 00:47 Fingerstick Blood Sugar Ordered. EDMS 01:03 Financial registration complete. hs2 01:05 [facility] Payment Agreement was scanned into [employer] and attached to record. hs2 11:04 T-Sheet-- Draft Copy was scanned into LocalOnHOST and attached to record. gb Signatures: Dispatcher [employer] EDShantel Herndon, Reg Reg gb Mraia Isabel Worrell,RN RN lf1 Paolo Lomeli, PAMaged PAMaged ar2 Tammy Mayfield,RN RN js15 Glenda Molina, Reg Reg hs2 The chart was reviewed and I authenticate all verbal orders and agree with the evaluation and treatment provided.Attachments: 01:05 [facility] Payment Agreement hs2 11:04 T-Sheet-- Draft Copy gb Chart Complete MTDD
--- NOTE | 2016-04-29 02:01 | EDDOCDS ---
Physician Documentation [facility] Name: Bri Skinner Age: 70 yrs Sex: Female : 1945 Arrival Date: 04/26/2016 Time: 23:36 Bed I2 / M2 Private MD: Unknown, Family Disposition: 04/27/16 00:44 Discharged to Home/Self Care. Impression: Encounter for issue of repeat prescription. - Condition is Stable. - Discharge Instructions: Blood Glucose Monitoring, Adult, Type 2 Diabetes Mellitus, Adult. - Prescriptions for Diabetic Supplies, Miscellan. - Dispense 60 (sixty) without refill, sig: Use as directed. - Medication Reconciliation, Local Pharmacy Hours form. - Follow up: [facility]; When: As previously arranged; Reason: Recheck today's complaints, Continuance of care, To establish care. Follow up: Emergency Department; When: As needed; Reason: blood sugar greater than 300 or less than 70, nausea, headache . - Problem is new. - Symptoms are unchanged. Historical: - Allergies: No known drug Allergies; - Home Meds: 1. Levemir flexTouch 22 units once daily 2. Humalog KwikPen Sliding Scale - PMHx: Depression; Diabetes - NIDDM: uncontrolled; - PSHx: ; - Social history: Smoking status: Patient states was never smoker of tobacco. Preferred Language: Kazakh, The patient speaks a little Kuwaiti. - Family history: Not pertinent. - : The pt / caregiver states he / she is not on anticoagulants. Home medication list is obtained from family members. - Exposure Risk Screening:: None identified. Vital Signs: 04/26 23:39 BP 144 / 74; Pulse 71; Resp 18 S; Temp 96.6(O); Pulse Ox 97% on R/A; Weight 39.01 kg / gr2 86 lbs (R); Height 5 ft. 5 in. (165.10 cm) (R); Pain 2/10; 23:39 Body Mass Index 14.31 (39.01 kg, 165.10 cm) gr2 MDM: 04/27 00:29 Accucheck ordered. ar2 00:47 Fingerstick Blood Sugar Ordered. EDMS 01:03 Financial registration complete. hs2 01:05 [facility] Payment Agreement was scanned into MEDHOST and attached to record. hs2 11:04 T-Sheet-- Draft Copy was scanned into [employer]PlanetHOST and attached to record. gb Signatures: Dispatcher [employer] EDShantel Herndon, Reg Reg gb Maria Isabel Worrell,RN RN lf1 Paolo Lomeli, PAMaged PAMaged ar2 Tammy Mayfield,RN RN js15 Glenda Molina, Reg Reg hs2 The chart was reviewed and I authenticate all verbal orders and agree with the evaluation and treatment provided.Attachments: 01:05 [facility] Payment Agreement hs2 11:04 T-Sheet-- Draft Copy gb Chart Complete MTDD
--- NOTE | 2016-04-29 02:01 | EDDOCDS ---
Nurse's Notes [facility] Name: Bri Skinner Age: 70 yrs Sex: Female : 1945 Arrival Date: 04/26/2016 Time: 23:36 Bed I2 / M2 Private MD: Cookie, Family Diagnosis: Encounter for issue of repeat prescription Presentation: 04/26 23:46 Presenting complaint: Patient states: Discharged from the hospital today and and needs lf1 prescription for needles to go with her flexpens from the pharmacy. Pt.'s daughter reports that she took her blood sugar tonight and it was 220 and then went up to 388. Pt reports that she feels "fine" at this time. Adult Sepsis Screening: The patient does not have new or worsening altered mentation. Patient's respiratory rate is less than 22. Systolic blood pressure is greater than 100. Patient has a qSOFA score of 0- Negative Sepsis Screen. Suicide/Homicide risk assessment- the patient denies having any suicidal and/or homicidal ideations and does not present with any other emotional, behavioral or mental health complaints. 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 Transition of care: patient was not received from another setting of care. 23:46 Acuity: ESTEFANI Level 4 lf1 23:46 Method Of Arrival: Walkin/Carried/Asstd lf1 Triage Assessment: 23:54 General: Appears in no apparent distress, comfortable, Behavior is cooperative. Pain: lf1 Denies pain. Neurological: Level of Consciousness is awake, alert. Respiratory: Respiratory effort is even, unlabored. GI: Denies nausea, vomiting. Historical: - Allergies: No known drug Allergies; - Home Meds: 1. Levemir flexTouch 22 units once daily 2. Humalog KwikPen Sliding Scale - PMHx: Depression; Diabetes - NIDDM: uncontrolled; - PSHx: ; - Social history: Smoking status: Patient states was never smoker of tobacco. Preferred Language: Belarusian, The patient speaks a little Samoan. - Family history: Not pertinent. - : The pt / caregiver states he / she is not on anticoagulants. Home medication list is obtained from family members. - Exposure Risk Screening:: None identified. Screenin/02 00:58 Screening information is obtained from family members. Fall risk: At risk due to age, js15 use of walker. Assistance ADL's: requires no assistance with activities of daily living. Abuse/DV Screen: The patient / caregiver reports he/she is: not in a situation that causes fear, pain or injury. Nutritional screening: No deficits noted. Advance Directives: There is no active DNR order. home support is adequate. Assessment: 00:58 General: Appears in no apparent distress, Behavior is cooperative. Neurological: Level js15 of Consciousness is awake, alert. Respiratory: Airway is patent Respiratory effort is even, unlabored, Respiratory pattern is regular, symmetrical. Derm: Skin is normal. Vital Signs: 04/26 23:39 BP 144 / 74; Pulse 71; Resp 18 S; Temp 96.6(O); Pulse Ox 97% on R/A; Weight 39.01 kg gr2 (R); Height 5 ft. 5 in. (165.10 cm) (R); Pain 2/10; 23:39 Body Mass Index 14.31 (39.01 kg, 165.10 cm) gr2 Vitals: 23:39 Log In Time: April 26, 2016 at 23:39. gr2 ED Course: 23:38 Patient visited by Norah Persaud. gr2 23:38 Unknown, Family Dr is Private Physician. gr2 23:38 Patient moved to Waiting gr2 23:41 Patient visited by Norah Persaud. gr2 23:41 Patient moved to Pre RCE gr2 23:52 Triage Initiated lf1 0202 00:35 Paolo Lomeli PA-C is PHCP. ar2 00:35 Hunter Ace DO is Attending Physician. ar2 00:35 Patient visited by Paolo Lomeli PA-C. ar2 00:35 Patient moved to I2 / M2 lf1 00:42 [facility] is Referral Physician. ar2 00:58 The patient / caregiver is instructed regarding the plan of care and ED course. js15 00:58 No IV's were initiated during this patient's visit. No procedures done that require js15 assistance. 01:05 [facility] Payment Agreement was scanned into [employer] and attached to record. hs2 01:08 Patient name changed from Bri\\S\\\\S\\Skinner\\S\\ to Bri\\S\\ \\S\\Skinner. EDMS 11:04 T-Sheet-- Draft Copy was scanned into [employer] and attached to record. gb Order Results: Lab Order: Fingerstick Blood Sugar; BALDEMAR'M 04/27/16 00:40 Test: BEDSIDE GLUCOSE; Value: 207; Range: 83-110; Abnormal: Above high normal; Units: MG/DL; Status: F Outcome: 00:44 Discharge ordered by Provider. ar2 00:58 Discharge Assessment: Patient awake, alert and oriented x 3. No cognitive and/or js15 functional deficits noted. Patient verbalized understanding of disposition instructions. patient administered narcotics - no. The following High Risk Discharge criteria are identified: None. Discharged to home ambulatory, with family. Condition: stable. Discharge instructions given to patient, Instructed on discharge instructions, follow up and referral plans. medication usage, Demonstrated understanding of instructions, medications, Pt was receptive of discharge instructions/ teaching. No special radiology studies were completed. Property sent home with patient. 01:00 Patient left the ED. js15 Signatures: Dispatcher MedHoby[employer] EDMS Shantel Fair, Reg Reg gb Maria Isabel Worrell,RN RN lf1 Paolo Lomeli, PA-C PA-C ar2 Norah Persaud gr2 Tammy MayfieldRN RN js15 Glenda Molina, Reg Reg hs2 Chart Complete MTDD
== END 2016-04-27 01:00 | disposition home or self-care (01) ==
LOC: M ED 23:36
DX: Z04.1 Encounter for examination and observation following transport accident (principal); F32.9 Major depressive disorder, single episode, unspecified; E11.65 Type 2 diabetes mellitus with hyperglycemia; Z79.4 Long term (current) use of insulin

== ENCOUNTER → 2016-05-05 | Outpatient (REF) | payer MEDICARE, SELFPAY | LOC: M SFHCPLAZ 12:57 | PROVIDERS: ATTEND Family Medicine | DX: E13.10 Other specified diabetes mellitus with ketoacidosis without coma (principal) | CPT/HCPCS: 82043; 82948; G0463 ==

== ENCOUNTER → 2016-05-11 | Outpatient (REF) | payer MEDICARE ==
[2016-05-11 14:06] LABS: BASO % 0.4 % (0.0-1.0); EOS # 0.1 K/mm3 (0.0-0.50); EOS % 1.7 % (0.0-3.0); LARGE UNSTAINED CELL # 0.1 K/mm3 (0.0-0.4); LARGE UNSTAINED CELL % 2.4 % (0.0-4.0); LYMPH # 1.5 K/mm3 (1.5-4.5); LYMPH % 25.9 % (24.0-44.0); MEAN CORPUSCULAR HEMOGLOBIN 28.9 pg (27.0-33.0); MEAN CORPUSCULAR HGB CONC 31.8 g/dl (32.0-36.5); MONO # 0.3 K/mm3 (0.0-0.8); MONO % 5.3 % (0.0-5.0); NEUTROPHILS # 3.7 K/mm3 (1.8-7.7); NEUTROPHILS % 64.2 % (36.0-66.0); PLATELET COUNT, AUTOMATED 349 k/mm3 (150-450); RED CELL DISTRIBUTION WIDTH 13.9 % (11.5-14.5); WHITE BLOOD COUNT 5.8 K/mm3 (4.0-10.0)
[2016-05-11 14:30] LABS: ERYTHROCYTE SEDIMENTATION RATE 75 mm/hr (0-30)
[2016-05-11 14:41] LABS: VITAMIN B12 LEVEL 1160 PG/ML
[2016-05-11 14:42] LABS: FOLATE 10.3 NG/ML
[2016-05-11 15:05] LABS: ALBUMIN 3.8 GM/DL (3.2-5.2); ALBUMIN/GLOBULIN RATIO 1.03 (1.00-1.93); ALKALINE PHOSPHATASE 138 U/L (45-117); ALT/SGPT 31 U/L (12-78); ANION GAP 9 MEQ/L (8-16); AST/SGOT 26 U/L (15-37); BILIRUBIN,TOTAL 0.4 MG/DL (0.2-1.0); BLOOD UREA NITROGEN 26 MG/DL (7-18); CARBON DIOXIDE LEVEL 27 MEQ/L (21-32); CHLORIDE LEVEL 103 MEQ/L (98-107); CREATININE FOR GFR 0.77 MG/DL (0.55-1.02); GLOMERULAR FILTRATION RATE > 60.0 (>39); GLUCOSE, FASTING 129 MG/DL (83-110); POTASSIUM SERUM 4.3 MEQ/L (3.5-5.1); SODIUM LEVEL 139 MEQ/L (136-145); TOTAL PROTEIN 7.5 GM/DL (6.4-8.2)
[2016-05-16 08:06] LABS: VITAMIN E LEVEL 12.9 mg/L (6.5-21.5)
[2016-05-16 13:32] LABS: ALBUMIN % 53.3 % (55.8-66.1); GAMMA GLOBULIN % 15.6 % (11.1-18.8)
== END ==
LOC: M LABNEURO 13:44
PROVIDERS: ATTEND Psychiatry & Neurology Neurology
DX: R41.841 Cognitive communication deficit (principal); R73.01 Impaired fasting glucose; Z79.899 Other long term (current) drug therapy

== ENCOUNTER → 2016-05-12 | Outpatient (CLI) | payer MEDICARE ==
--- NOTE | 2016-05-12 17:04 | REP ---
Clinical: Inconclusive PPD test Technique: PA and lateral. Comparison: 04/20/2016. Findings: Mediastinum and cardiac silhouette are normal. Lung prabhakar demonstrate chronic stable changes. No acute consolidation, effusion, or pneumothorax. Skeletal structures demonstrate age-related osteopenia and degenerative changes. Impression: Chronic stable changes. No acute cardiopulmonary process. Signed by El Burgos MD 05/12/2016 04:55 P
== END ==
LOC: M RAD 16:27
PROVIDERS: ATTEND Hospitalist
DX: R76.11 Nonspecific reaction to tuberculin skin test without active tuberculosis (principal)

== ENCOUNTER → 2016-07-28 | Outpatient (REF) | payer MEDICARE | LOC: M SFHCPLAZ 12:19 | PROVIDERS: ATTEND Family Medicine | DX: E13.10 Other specified diabetes mellitus with ketoacidosis without coma (principal) ==

== ENCOUNTER → 2016-09-01 | Outpatient (REF) | payer MEDICARE ==
[2016-09-01 13:34] LABS: ALBUMIN 4.1 GM/DL (3.2-5.2); ALBUMIN/GLOBULIN RATIO 1.21 (1.00-1.93); ALKALINE PHOSPHATASE 83 U/L (45-117); ALT/SGPT 23 U/L (12-78); ANION GAP 7 MEQ/L (8-16); AST/SGOT 13 U/L (15-37); BILIRUBIN,TOTAL 0.3 MG/DL (0.2-1.0); BLOOD UREA NITROGEN 16 MG/DL (7-18); CALCIUM LEVEL 9.3 MG/DL (8.8-10.2); CARBON DIOXIDE LEVEL 29 MEQ/L (21-32); CHLORIDE LEVEL 104 MEQ/L (98-107); CREATININE FOR GFR 0.69 MG/DL (0.55-1.02); GLOMERULAR FILTRATION RATE > 60.0 (>39); GLUCOSE, FASTING 111 MG/DL (83-110); POTASSIUM SERUM 4.3 MEQ/L (3.5-5.1); SODIUM LEVEL 140 MEQ/L (136-145); TOTAL PROTEIN 7.5 GM/DL (6.4-8.2)
== END ==
LOC: M SFHCPLAZ 10:53
PROVIDERS: ATTEND Family Medicine
DX: E11.9 Type 2 diabetes mellitus without complications (principal)

== ENCOUNTER → 2016-11-14 | Outpatient (REF) | payer MEDICARE | LOC: M SFHCPLAZ 17:04 | PROVIDERS: ATTEND Internal Medicine | DX: E11.9 Type 2 diabetes mellitus without complications (principal); Z53.8 Procedure and treatment not carried out for other reasons ==

== ENCOUNTER → 2016-11-22 | Outpatient (CLI) | payer MEDICARE ==
[2016-11-22 11:10] LABS: ANION GAP 6 MEQ/L (8-16); BLOOD UREA NITROGEN 15 MG/DL (7-18); CALCIUM LEVEL 9.7 MG/DL (8.8-10.2); CARBON DIOXIDE LEVEL 31 MEQ/L (21-32); CHLORIDE LEVEL 107 MEQ/L (98-107); GLOMERULAR FILTRATION RATE > 60.0 (>39); GLUCOSE, FASTING 53 MG/DL (83-110); POTASSIUM SERUM 4.5 MEQ/L (3.5-5.1); SODIUM LEVEL 144 MEQ/L (136-145)
== END ==
LOC: M LAB 09:42
PROVIDERS: ATTEND Family Medicine
DX: E11.9 Type 2 diabetes mellitus without complications (principal)

== ENCOUNTER → 2017-06-07 | Outpatient (CLI) | payer MEDICARE ==
[2017-06-07 11:13] LABS: ESTIMATED AVERAGE GLUCOSE 146 MG/DL (60-110); HEMOGLOBIN A1c 6.7 %
== END ==
LOC: M LAB 09:52
DX: E11.9 Type 2 diabetes mellitus without complications (principal)
CPT/HCPCS: 83036

== ENCOUNTER → 2017-09-04 | Outpatient (CLI) | payer MEDICARE, MEDICAID ==
[2017-09-04 11:00] LABS: ESTIMATED AVERAGE GLUCOSE 140 MG/DL (60-110); HEMOGLOBIN A1c 6.5 %
== END ==
LOC: M LAB 10:01
DX: E11.9 Type 2 diabetes mellitus without complications (principal)
CPT/HCPCS: 83036

== ENCOUNTER → 2018-03-05 | Outpatient (CLI) | payer MEDICARE, MEDICAID ==
[2018-03-05 12:59] LABS: ESTIMATED AVERAGE GLUCOSE 163 MG/DL (60-110); HEMOGLOBIN A1c 7.3 %
== END ==
LOC: M LAB 10:31
DX: E11.9 Type 2 diabetes mellitus without complications (principal)
CPT/HCPCS: 83036

== ENCOUNTER 2018-07-19 15:42 | Emergency (ER) | payer MEDICAID, MEDICARE ==
[~2018-07-19] VITALS: Ht 162.6 cm; Wt 39.3 kg
[2018-07-19] MEDS ORDERED: TRUL10IN (16:19)
[2018-07-19] MEDS ORDERED: FARXIGA (16:19)
[2018-07-19] MEDS ORDERED: ASPI81TA33 (16:19)
[2018-07-19] MEDS ORDERED: MEMA1TAB2 (16:19)
[2018-07-19] MEDS ORDERED: METF10004 (16:19)
[2018-07-19] MEDS ORDERED: ACETAMINOPHEN 325 MG TAB PO ONE (17:30)
[2018-07-19] MEDS ORDERED: NS 1,000 ML IV ONE (17:30)
[2018-07-19 17:33] LABS: BASO % 0.2 % (0.0-1.0); HEMATOCRIT 44.6 % (36.0-47.0); HEMOGLOBIN 14.8 g/dl (12.0-15.5); MEAN CORPUSCULAR HEMOGLOBIN 28.4 pg (27.0-33.0); MEAN CORPUSCULAR HGB CONC 33.2 g/dl (32.0-36.5); MEAN CORPUSCULAR VOLUME 85.6 fl (80.0-96.0); MONO # 1.1 10^3/uL (0.0-0.8); MONO % 7.8 % (0.0-5.0); NEUTROPHILS # 11.4 10^3/uL (1.8-7.7); NEUTROPHILS % 84.6 % (36.0-66.0); PLATELET COUNT, AUTOMATED 306 10^3/uL (150-450); RED BLOOD COUNT 5.21 10^6/uL (4.00-5.40); WHITE BLOOD COUNT 13.5 10^3/uL (4.0-10.0)
[2018-07-19 17:47] LABS: VENOUS BASE EXCESS 0.4 (-2.0-2.0); VENOUS HCO3 24.6 MEQ/L (23.0-27.0); VENOUS O2 SATURATION 68.6 % (60.0-80.0); VENOUS PARTIAL PRESSURE CO2 38.6 mmHg (38.0-50.0); VENOUS PARTIAL PRESSURE O2 34.8 mmHg (30.0-50.0); VENOUS PH 7.423 UNITS (7.330-7.430); VENOUS STANDARD HCO3 24.1 MEQ/L; VENOUS TOTAL CO2 25.8 MEQ/L (24.0-28.0)
[2018-07-19 17:54] LABS: OSMOLALITY SERUM 296 MOSM/KG (280-301)
[2018-07-19 17:56] LABS: ACETONE/KETONE 11.41 MG/DL (<2.81); ALBUMIN 3.9 GM/DL (3.2-5.2); ALT/SGPT 31 U/L (12-78); BILIRUBIN,DIRECT 0.2 MG/DL (0.0-0.2); BILIRUBIN,TOTAL 0.7 MG/DL (0.2-1.0); BLOOD UREA NITROGEN 26 MG/DL (7-18); CALCIUM LEVEL 9.8 MG/DL (8.8-10.2); CARBON DIOXIDE LEVEL 26 MEQ/L (21-32); CHLORIDE LEVEL 97 MEQ/L (98-107); CK-MB VALUE MASS < 1.0 NG/ML (<3.6); CPK CREATINE PHOSPHOKINASE 61 U/L (26-192); CREATININE FOR GFR 1.08 MG/DL (0.55-1.30); GLOMERULAR FILTRATION RATE 52.7 (>39); GLUCOSE, FASTING 271 MG/DL (70-100); LIPASE 65 U/L (73-393); MAGNESIUM LEVEL 2.3 MG/DL (1.8-2.4); MB/CK RELATIVE INDEX 1.64 (< OR =4); PHOSPHORUS LEVEL 2.7 MG/DL (2.5-4.9); POTASSIUM SERUM 4.2 MEQ/L (3.5-5.1); SODIUM LEVEL 135 MEQ/L (136-145); TOTAL PROTEIN 8.7 GM/DL (6.4-8.2); TROPONIN I < 0.02 NG/ML (< 0.10)
[2018-07-19 17:59] LABS: HEMOGLOBIN A1c 7.4 %
--- NOTE | 2018-07-19 18:26 | REP ---
Chest two views HISTORY: Fever Comparison: 05/12/2016 The lungs are clear. The heart is normal in size. The pulmonary vasculature is normal in appearance. The bony structure is intact. IMPRESSION: No acute disease. Electronically Signed by Dannie Lopez MD 07/19/2018 06:17 P
--- NOTE | 2018-07-19 20:31 | ECGEPIP ---
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
[2018-07-19] MEDS ORDERED: CIPROFLOXACIN 500 MG TAB PO ONE (21:15)
[2018-07-19] MEDS ORDERED: CIPR-249 PO (21:56)
[2018-07-19 22:15] VITALS: BP 91/56
== END 2018-07-19 22:30 | disposition home or self-care (01) ==
LOC: M ED 15:42
DX: E11.65 Type 2 diabetes mellitus with hyperglycemia (principal); N30.00 Acute cystitis without hematuria; Z86.73 Personal history of transient ischemic attack (TIA), and cerebral infarction without residual deficits; F03.90 Unspecified dementia, unspecified severity, without behavioral disturbance, psychotic disturbance, mood disturbance, and anxiety; F32.9 Major depressive disorder, single episode, unspecified; H40.9 Unspecified glaucoma; Z79.82 Long term (current) use of aspirin; Z79.899 Other long term (current) drug therapy

== ENCOUNTER → 2018-10-05 | Outpatient (CLI) | payer MEDICAID, MEDICARE ==
[~2018-10-05] MED LIST changes: +ASPI81TA33; +CIPR-249 PO; +FARXIGA; +MEMA1TAB2; +METF10004; +TRUL10IN
[2018-10-05 11:09] LABS: HEMOGLOBIN A1c 6.8 %
[2018-10-05 11:15] LABS: ALBUMIN 3.8 GM/DL (3.2-5.2); ALT/SGPT 18 U/L (12-78); BILIRUBIN,TOTAL 0.4 MG/DL (0.2-1.0); BLOOD UREA NITROGEN 18 MG/DL (7-18); CARBON DIOXIDE LEVEL 28 MEQ/L (21-32); CHLORIDE LEVEL 100 MEQ/L (98-107); CREATININE FOR GFR 0.94 MG/DL (0.55-1.30); GLOMERULAR FILTRATION RATE > 60.0 (>39); GLUCOSE, FASTING 178 MG/DL (70-100); POTASSIUM SERUM 4.2 MEQ/L (3.5-5.1); SODIUM LEVEL 138 MEQ/L (136-145); TOTAL PROTEIN 7.6 GM/DL (6.4-8.2)
== END ==
LOC: M LAB 09:46
PROVIDERS: ATTEND Internal Medicine
DX: E11.9 Type 2 diabetes mellitus without complications (principal)

== ENCOUNTER → 2019-06-04 | Outpatient (CLI) | payer MEDICARE, MEDICAID ==
[~2019-06-04] MED LIST changes: +MEMA10TA19; -MEMA1TAB2
[2019-06-04 09:40] LABS: ALBUMIN 3.6 GM/DL (3.2-5.2); ALT/SGPT 19 U/L (12-78); BILIRUBIN,TOTAL 0.2 MG/DL (0.2-1.0); BLOOD UREA NITROGEN 27 MG/DL (7-18); CALCIUM LEVEL 9.7 MG/DL (8.8-10.2); CARBON DIOXIDE LEVEL 30 MEQ/L (21-32); CHLORIDE LEVEL 103 MEQ/L (98-107); CREATININE FOR GFR 0.88 MG/DL (0.55-1.30); GLOMERULAR FILTRATION RATE > 60.0 (>39); GLUCOSE, FASTING 125 MG/DL (70-100); POTASSIUM SERUM 4.8 MEQ/L (3.5-5.1); SODIUM LEVEL 137 MEQ/L (136-145); TOTAL PROTEIN 7.9 GM/DL (6.4-8.2)
[2019-06-04 09:40] LABS: MALB URINE SIEMENS 81.6 MG/L; MAU/CREAT RATIO 67.4 MCG/MG (0.0-30.0)
[2019-06-04 10:21] LABS: HEMOGLOBIN A1c 7.5 %
[2019-06-04 10:37] LABS: VITAMIN B12 LEVEL 1009 PG/ML (247-911)
== END ==
LOC: M LAB 08:09
PROVIDERS: ATTEND Internal Medicine
DX: E11.9 Type 2 diabetes mellitus without complications (principal); F03.91 Unspecified dementia, unspecified severity, with behavioral disturbance; R30.0 Dysuria

== ENCOUNTER → 2019-06-04 | Outpatient (REF) | payer MEDICARE, MEDICAID | LOC: M SFHCPLAZ 07:49 | DX: E11.9 Type 2 diabetes mellitus without complications (principal); F03.91 Unspecified dementia, unspecified severity, with behavioral disturbance; R30.0 Dysuria ==

== ENCOUNTER 2019-06-16 12:20 | Emergency (ER) | payer MEDICARE, MEDICAID ==
[~2019-06-16] VITALS: Ht 157.5 cm; Wt 45.6 kg
[~2019-06-16 12:20] MED LIST changes: -MEMA10TA19; +MEMA10TA19 PO; -METF10004; +METF10004 PO
[2019-06-16] MEDS ORDERED: REME15TA PO (13:11)
[2019-06-16] MEDS ORDERED: PIOG1TAB37 PO (13:11)
[2019-06-16] MEDS ORDERED: CENT1TAB PO (13:13)
[2019-06-16] MEDS ORDERED: VITA-55 PO (13:14)
[2019-06-16] MEDS ORDERED: VITA500C24 PO (13:14)
[2019-06-16] MEDS ORDERED: VITA500079 PO (13:15)
--- NOTE | 2019-06-16 13:38 | REP ---
Clinical: Cough and dyspnea . Comparison: 07/19/2018 . Findings: The mediastinum and cardiac silhouette are stable and within normal limits for portable technique. The lung prabhakar are clear without acute consolidation, effusion, or pneumothorax. Skeletal structures are intact. Impression: No acute cardiopulmonary process appreciated. Electronically Signed by El Burgos MD 06/16/2019 01:29 P
[2019-06-16 13:59] LABS: ALBUMIN 4.1 GM/DL (3.2-5.2); ALT/SGPT 14 U/L (12-78); BILIRUBIN,DIRECT 0.1 MG/DL (0.0-0.2); BILIRUBIN,TOTAL 0.2 MG/DL (0.2-1.0); BLOOD UREA NITROGEN 24 MG/DL (7-18); CALCIUM LEVEL 10.6 MG/DL (8.8-10.2); CARBON DIOXIDE LEVEL 27 MEQ/L (21-32); CHLORIDE LEVEL 101 MEQ/L (98-107); CK-MB VALUE MASS < 1.0 NG/ML (<3.6); CPK CREATINE PHOSPHOKINASE 127 U/L (26-192); CREATININE FOR GFR 0.93 MG/DL (0.55-1.30); GLOMERULAR FILTRATION RATE > 60.0 (>39); GLUCOSE, FASTING 179 MG/DL (70-100); MB/CK RELATIVE INDEX 0.79 (< OR =4); NT-PRO BNP 171 PG/ML (<450); POTASSIUM SERUM 3.9 MEQ/L (3.5-5.1); SODIUM LEVEL 136 MEQ/L (136-145); THYROXINE (T4) 8.8 UG/DL (4.5-12.0); TOTAL PROTEIN 8.8 GM/DL (6.4-8.2); TROPONIN I < 0.02 NG/ML (< 0.10)
[2019-06-16] MEDS ORDERED: NS 1,000 ML IV ONE (14:15)
[2019-06-16 15:44] LABS: BASO % 0.2 % (0.0-1.0); EOS # 0.1 10^3/uL (0.0-0.5); EOS % 0.8 % (0.0-3.0); HEMATOCRIT 40.9 % (36.0-47.0); HEMOGLOBIN 13.4 g/dl (12.0-15.5); LYMPH # 2.3 10^3/uL (1.5-5.0); LYMPH % 17.9 % (24.0-44.0); MEAN CORPUSCULAR HEMOGLOBIN 28.5 pg (27.0-33.0); MEAN CORPUSCULAR HGB CONC 32.8 g/dl (32.0-36.5); MEAN CORPUSCULAR VOLUME 86.8 fl (80.0-96.0); MONO # 0.5 10^3/uL (0.0-0.8); MONO % 3.8 % (0.0-5.0); NEUTROPHILS # 10.1 10^3/uL (1.5-8.5); PLATELET COUNT, AUTOMATED 304 10^3/uL (150-450); RED BLOOD COUNT 4.71 10^6/uL (4.00-5.40)
[2019-06-16] MEDS ORDERED: ISOVUE-370 76% 100ML VIAL (Q9967) As Ordered ONE (18:32)
--- NOTE | 2019-06-16 19:12 | REPVR ---
PROCEDURE INFORMATION: Exam: CT Abdomen And Pelvis With Contrast Exam date and time: 06/16/2019 6:38 PM Age: 73 years old Clinical indication: Other: Altered TECHNIQUE: Imaging protocol: Computed tomography of the abdomen and pelvis with intravenous contrast. Radiation optimization: All CT scans at this facility use at least one of these dose optimization techniques: automated exposure control; mA and/or kV adjustment per patient size (includes targeted exams where dose is matched to clinical indication); or iterative reconstruction. Contrast material: ISOVUE 370; Contrast volume: 90 ml; Contrast route: IV; COMPARISON: No relevant prior studies available. FINDINGS: Liver: Hepatic steatosis. Gallbladder and bile ducts: Cholecystectomy clips in the right upper quadrant. Pancreas: Pancreas atrophy. Spleen: Normal. No splenomegaly. Adrenals: Normal. No mass. Kidneys and ureters: Normal. No hydronephrosis. Stomach and bowel: Unremarkable. No obstruction. No mucosal thickening. Appendix: Normal appendix. Intraperitoneal space: Unremarkable. No free air. No significant fluid collection. Vasculature: Mild coronary artery atherosclerosis. Lymph nodes: Unremarkable. No enlarged lymph nodes. Bladder: Unremarkable as visualized. Reproductive: Unremarkable as visualized. Bones/joints: Mild lumbar spondylosis with a moderate dextroconvex curvature. Soft tissues: Unremarkable. IMPRESSION: No acute abnormality. Electronically signed by: Reinaldo Mcgovern On 06/16/2019 19:11:54 PM
[2019-06-16 20:30] VITALS: BP 123/73
--- NOTE | 2019-06-16 21:00 | CR.PDOC ---
General Date of Consultation: Jun 16, 2019 Consultation REASON FOR CONSULTATION/CHIEF COMPLAINT: Evaluation of lactic acidosis for admission. HISTORY OF PRESENT ILLNESS: 73-year-old female with past medical history of type 2 diabetes, long-standing dementia presents initially from home for shaking episode noted by daughter. Patient had just gone now shower was noted to be visibly shaking. However patient at the time did not have a temperature or did not feel febrile at that time. She denied any recent fevers, chills, shortness of breath, chest pain, cough, abdominal pain. As per daughter, patient has been losing weight and has been socially withdrawn over the past several months. Her appetite has significantly decreased although she is taking the same amount of medications that she did before. Patient currently lives with her daughter who is her full-time family nurse. She is a lifelong nonsmoker, nondrinker, nondrug abuser. Upon ER evaluation, patient had a mildly elevated white count and elevated lactic acid level to 4. However other workup was all within normal limits including CT abdomen and pelvis as well as chest x-ray and urinalysis. Hospitalist consultation for possible admission. ALLERGIES: Please see below. HOME MEDICATIONS: Please see below. PAST MEDICAL HISTORY: 1. Dementia. 2. Diabetes type 2. PAST SURGICAL HISTORY: None FAMILY HISTORY: Father: 2 diabetes Mother: Type 2 diabetes Siblings: Hypertension, diabetes Hereditary Diseases: None Unexpected deaths due to medical reasons: Not applicable SOCIAL HISTORY: Marital status and/or living arrangements: Lives with daughter Children: 1 Employment: Not employed Tobacco use: Never ETOH: Occasional Illicit drug use: Never IV drug use: Never REVIEW OF SYSTEMS: CONSTITUTIONAL: Denies any recent fevers, chills. Endorses loss of appetite HEENT: No changes in vision, no sore throat, no trouble hearing. CARDIOVASCULAR: Denies chest pain or palpitations. RESPIRATORY: Denies any coughing, wheezing. GENITOURINARY: Denies any urinary frequency or dysuria. MUSCULOSKELETAL: Chronic muscle aches and chronic joint pain from arthritis GASTROINTESTINAL: Denies any recent diarrhea, constipation, nausea, vomiting. SKIN: Denies any skin changes or bruising. NEUROLOGICAL: No changes from baseline noted as per patient. Denies any weakness or numbness in her extremities. PSYCHIATRIC: Patient admits to being socially withdrawn. ENDOCRINE: Denies polydipsia or polyuria. HEMATOLOGIC/LYMPHATIC: No bruising noted. PHYSICAL EXAMINATION: VITAL SIGNS: Please see below. GENERAL APPEARANCE: Pleasant elderly female, appears to be stated age. No acute distress. Speaks fluent Sinhala. HEENT: Normocephalic atraumatic. Mucous membranes appear to be moist. No palpa ble lymphadenopathy noted RESPIRATORY: Lungs are clear to auscultation bilaterally. CARDIOVASCULAR: Regular rate and regular rhythm. Systolic ejection murmur appreciated. ABDOMEN: Soft, nontender, nondistended with normal bowel sounds.. EXTREMITIES: No gross deformities or fractures evident. NEUROLOGICAL: Cranial nerves II-12 are grossly intact. PSYCHIATRIC: Patient appears to be in good mood. LABORATORY DATA: Please see below. ASSESSMENT/PLAN: Patient appears to have lactic acidosis but no evidence of tissue hypoperfusion noted. Patient does not appear to be ill at this time. Patient likely has a type B lactic acidosis from her metformin use. She is currently receiving 1000 mg twice a day but has not been eating well at all for the past several weeks. She also is somewhat malnourished and small. Her appetite has likely decreased and she has become socially withdrawn due to progressing advanced dementia. As per daughter, patient does have primary care follow-up within the week and have advised to have repeat labs drawn after holding metformin upon discharge. Patient did not need to be admitted to the hospital at this time for observation. Plan was discussed with patient and her daughter at length and the agreed plan. Plan was also discussed with ER attending who also agrees. - Recommend stopping metformin at this time - Patient to follow-up with her PCP and have repeat labs drawn within the week - Patient does not need to be admitted to the hospital for observation Vital Signs/I&O Vital Signs Date Time Temp Pulse Resp B/P (MAP) Pulse Ox O2 Delivery O2 Flow Rate FiO2 06/16/19 20:30 88 16 123/73 (90) 98 Room Air 06/16/19 18:00 97.7 Laboratory Data Labs 24H Laboratory Tests 2 06/16/19 13:04: Anion Gap 8, Glomerular Filtration Rate > 60.0, Calcium Level 10.6H, Total Bilirubin 0.2, Direct Bilirubin 0.1, Aspartate Amino Transf (AST/SGOT) 22, Alanine Aminotransferase (ALT/SGPT) 14, Alkaline Phosphatase 105, Total Creatine Kinase 127, Creatine Kinase MB < 1.0, Creatine Kinase MB Relative Index 0.79, Troponin I < 0.02, FB-Xxn-P-Type Natriuretic Peptide 171, Total Protein 8.8H, Albumin 4.1, Albumin/Globulin Ratio 0.87L, Thyroid Stimulating Hormone (TSH) 5.990H, Thyroxine (T4) 8.8 06/16/19 13:20: Bedside Glucose (Misc Panel) 161H 06/16/19 13:21: Lactic Acid Level 3.8*H 06/16/19 13:59: Urine Color STRAW, Urine Appearance CLEAR, Urine pH 5.0, Urine Specific [place] 1.003, Urine Protein NEGATIVE, Urine Glucose (UA) 3+H, Urine Ketones NEGATIVE, Urine Blood NEGATIVE, Urine Nitrite NEGATIVE, Urine Bilirubin NEGATIVE, Urine Urobilinogen 0.2, Urine Leukocyte Esterase NEGATIVE, Urine WBC (Auto) 1, Urine RBC (Auto) 2, Urine Hyaline Casts (Auto) 0, Urine Bacteria (Auto) 3+H, Urine Squamous Epithelial Cells 1, Urine Mucus (Auto) SMALL, Urine Sperm (Auto) 06/16/19 15:34: Immature Granulocyte % (Auto) 0.3, Neutrophils (%) (Auto) 77.0H, Lymphocytes (%) (Auto) 17.9L, Monocytes (%) (Auto) 3.8, Eosinophils (%) (Auto) 0.8, Basophils (%) (Auto) 0.2, Neutrophils # (Auto) 10.1H, Lymphocytes # (Auto) 2.3, Monocytes # (Auto) 0.5, Eosinophils # (Auto) 0.1, Basophils # (Auto) 0.0, Nucleated Red Blood Cells % (auto) 0.0 06/16/19 17:18: Lactic Acid Level 4.0*H CBC/BMP Laboratory Tests 06/16/19 13:04 06/16/19 15:34 Microbiology Microbiology 06/16/19 Respiratory Virus Panel (PCR) (JOSIANE) - Final, Complete Human Rhinovirus/Enterovirus 06/16/19 Blood Culture, Received Pending 06/16/19 Blood Culture, Received Pending Allergies Coded Allergies: No Known Allergies (Unverified , 04/20/16) Home Medications Scheduled Ascorbic Acid (Vitamin C) 500 Mg Capsule, 1 CAP PO DAILY for 28 Days, #28 (Reported) Cholecalciferol (Vitamin D3) (Vitamin D3) 5,000 Unit Tab.rapdis, 1 TAB PO DAILY for 30 Days, #30 (Reported) Memantine HCl (Memantine HCl) 10 Mg Tablet, 5 MG PO BID, (Reported) Metformin HCl (Metformin HCl) 1,000 Mg Tablet, 1,000 MG PO BID, (Reported) Mirtazapine (Remeron) 15 Mg Tablet, 15 MG PO QHS, (Reported) Multivit-Min/FA/Lycopen/Lutein (Centrum Silver Tablet) 1 Each Tablet, 1 TAB PO DAILY for 30 Days, #30 (Reported) Pioglitazone HCl (Pioglitazone HCl) 30 Mg Tablet, 30 MG PO DAILY, (Reported) Vitamin E (Dl,Tocopheryl Acet) (Vitamin E) 400 Unit Capsule, 1 CAP PO BID for 30 Days, #60 (Reported) Miscellaneous Medications Aspirin (Aspirin EC) 81 Mg Tablet., (Reported) [[facility]] , (Reported) HEIDI CADENA MD Jun 16, 2019 21:00
--- NOTE | 2019-06-17 05:38 | ECGEPIP ---
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
== END 2019-06-16 21:07 | disposition home or self-care (01) ==
LOC: M ED 12:20
DX: E11.65 Type 2 diabetes mellitus with hyperglycemia (principal); R79.89 Other specified abnormal findings of blood chemistry; F03.90 Unspecified dementia, unspecified severity, without behavioral disturbance, psychotic disturbance, mood disturbance, and anxiety; Z79.899 Other long term (current) drug therapy; Z79.82 Long term (current) use of aspirin; Z79.84 Long term (current) use of oral hypoglycemic drugs
CPT/HCPCS: 36415; 71045; 74177; 80048; 80076; 81001; 82550; 82553; 83605; 83880; 84436; 84443; 84484; 85025; 87040; 87486; 87581; 87633; 87798; 93005; 93041; 94760; 96360; 96361; 99285; Q9967

== ENCOUNTER → 2019-06-27 | Outpatient (CLI) | payer MEDICARE, MEDICAID ==
[~2019-06-27] MED LIST changes: +CENT1TAB PO; +PIOG1TAB37 PO; +REME15TA PO; +VITA-55 PO; +VITA500079 PO; +VITA500C24 PO
[2019-06-27 11:58] LABS: APPEARANCE, URINE CLEAR (CLEAR); BACTERIA, URINE AUTO 2+ (NEGATIVE); BILIRUBIN, URINE AUTO NEGATIVE (NEGATIVE); BLOOD, URINE BLOOD NEGATIVE (NEGATIVE); COLOR, URINE YELLOW (YELLOW); GLUCOSE, URINE (UA) AUTO 3+ mg/dL (NEGATIVE); KETONE, URINE AUTO NEGATIVE (NEGATIVE); LEUKOCYTE ESTERASE, URINE AUTO 1+ (NEGATIVE); NITRITE, URINE AUTO POSITIVE (NEGATIVE); PROTEIN, URINE AUTO NEGATIVE (NEGATIVE); RBC, URINE AUTO 21 /HPF (0-3); SQUAMOUS EPITHELIAL CELL UR AU 0 /HPF (0-6); UROBILINOGEN, URINE AUTO 0.2 mg/dL (0.0-2.0); WBC, URINE AUTO 2 /HPF (0-3)
[2019-06-27 11:59] LABS: HEMATOCRIT 38.5 % (36.0-47.0); HEMOGLOBIN 12.5 g/dl (12.0-15.5); MEAN CORPUSCULAR HEMOGLOBIN 28.9 pg (27.0-33.0); MEAN CORPUSCULAR HGB CONC 32.5 g/dl (32.0-36.5); MEAN CORPUSCULAR VOLUME 88.9 fl (80.0-96.0); PLATELET COUNT, AUTOMATED 314 10^3/uL (150-450); RED BLOOD COUNT 4.33 10^6/uL (4.00-5.40); WHITE BLOOD COUNT 6.2 10^3/uL (4.0-10.0)
[2019-06-27 12:44] LABS: BLOOD UREA NITROGEN 29 MG/DL (7-18); CALCIUM LEVEL 9.5 MG/DL (8.8-10.2); CARBON DIOXIDE LEVEL 29 MEQ/L (21-32); CHLORIDE LEVEL 102 MEQ/L (98-107); CREATININE FOR GFR 0.91 MG/DL (0.55-1.30); FERRITIN 39 NG/ML (8-252); FOLATE > 24.0 NG/ML (>5.4); GLOMERULAR FILTRATION RATE > 60.0 (>39); GLUCOSE, FASTING 175 MG/DL (70-100); IRON (FE) 54 UG/DL (50-170); MAGNESIUM LEVEL 2.1 MG/DL (1.8-2.4); PERCENT SATURATION 13.8 % (13.2-45.0); POTASSIUM SERUM 4.2 MEQ/L (3.5-5.1); SODIUM LEVEL 137 MEQ/L (136-145); TOTAL IRON BINDING CAPACITY 392 UG/DL (250-450); VITAMIN B12 LEVEL 987 PG/ML (247-911)
== END ==
LOC: M LAB 11:13
PROVIDERS: ATTEND Hospitalist
DX: R25.2 Cramp and spasm (principal); Z79.82 Long term (current) use of aspirin; Z79.84 Long term (current) use of oral hypoglycemic drugs; Z79.899 Other long term (current) drug therapy

== ENCOUNTER → 2019-11-14 | Outpatient (REF) | payer MEDICARE, MEDICAID ==
[2019-11-14 14:02] LABS: APPEARANCE, URINE CLOUDY (CLEAR); BACTERIA, URINE AUTO 3+ (NEGATIVE); BILIRUBIN, URINE AUTO NEGATIVE (NEGATIVE); BLOOD, URINE BLOOD NEGATIVE (NEGATIVE); COLOR, URINE YELLOW (YELLOW); GLUCOSE, URINE (UA) AUTO 3+ mg/dL (NEGATIVE); KETONE, URINE AUTO TRACE mg/dL (NEGATIVE); LEUKOCYTE ESTERASE, URINE AUTO 3+ (NEGATIVE); MUCUS, URINE SMALL (NEGATIVE); NITRITE, URINE AUTO NEGATIVE (NEGATIVE); PROTEIN, URINE AUTO NEGATIVE (NEGATIVE); RBC, URINE AUTO 7 /HPF (0-3); SPECIFIC GRAVITY URINE AUTO 1.029 (1.002-1.035); SQUAMOUS EPITHELIAL CELL UR AU 1 /HPF (0-6); UROBILINOGEN, URINE AUTO 0.2 mg/dL (0.0-2.0); WBC, URINE AUTO TNTC /HPF (0-3)
[2019-11-14 14:25] LABS: CREATININE, URINE 65.4 MG/DL; MALB URINE SIEMENS 59.6 MG/L; MAU/CREAT RATIO 91.1 MCG/MG (0.0-30.0)
[2019-11-14 19:46] LABS: BASO % 0.4 % (0.0-1.0); EOS # 0.2 10^3/uL (0.0-0.5); EOS % 2.5 % (0.0-3.0); HEMATOCRIT 45.2 % (36.0-47.0); HEMOGLOBIN 14.6 g/dl (12.0-15.5); LYMPH # 1.8 10^3/uL (1.5-5.0); LYMPH % 22.1 % (24.0-44.0); MEAN CORPUSCULAR HEMOGLOBIN 28.6 pg (27.0-33.0); MEAN CORPUSCULAR HGB CONC 32.3 g/dl (32.0-36.5); MEAN CORPUSCULAR VOLUME 88.6 fl (80.0-96.0); MONO # 0.3 10^3/uL (0.0-0.8); MONO % 4.1 % (0.0-5.0); NEUTROPHILS # 5.8 10^3/uL (1.5-8.5); NEUTROPHILS % 70.5 % (36.0-66.0); PLATELET COUNT, AUTOMATED 290 10^3/uL (150-450); WHITE BLOOD COUNT 8.3 10^3/uL (4.0-10.0)
[2019-11-14 20:03] LABS: ALBUMIN 4.1 GM/DL (3.2-5.2); BILIRUBIN,TOTAL 0.5 MG/DL (0.2-1.0); CALCIUM LEVEL 9.9 MG/DL (8.8-10.2); CHOLESTEROL RISK RATIO 2.922 (<5); CREATININE FOR GFR 1.2 MG/DL (0.55-1.30); FREE T4 0.97 NG/DL (0.76-1.46); GLOMERULAR FILTRATION RATE 46.5 (>39); POTASSIUM SERUM 4.6 MEQ/L (3.5-5.1); THYROID STIMULATING HORMONE 2.48 uIU/ML (0.358-3.740); TOTAL 25(OH) VITAMIN D 43.8 NG/ML (30.0-100.0); TOTAL PROTEIN 8.7 GM/DL (6.4-8.2)
[2019-11-14 20:47] LABS: HEMOGLOBIN A1c 11.6 %
== END ==
LOC: M LAB REF 11:45
PROVIDERS: ATTEND Nurse Practitioner Family
DX: F03.90 Unspecified dementia, unspecified severity, without behavioral disturbance, psychotic disturbance, mood disturbance, and anxiety (principal); Z74.09 Other reduced mobility; Z13.9 Encounter for screening, unspecified; F34.1 Dysthymic disorder; E11.69 Type 2 diabetes mellitus with other specified complication; Z79.899 Other long term (current) drug therapy

== ENCOUNTER 2019-12-23 08:47 | Outpatient (RCR) | payer MEDICARE, MEDICAID | END 2019-12-24 | disposition home or self-care (01) | LOC: M PT 08:47 | PROVIDERS: ATTEND Physician Assistant | DX: S46.902A Unspecified injury of unspecified muscle, fascia and tendon at shoulder and upper arm level, left arm, initial encounter (principal); X58.XXXA Exposure to other specified factors, initial encounter; Y92.9 Unspecified place or not applicable ==

== ENCOUNTER → 2020-01-20 | Outpatient (REF) | payer MEDICARE, MEDICAID ==
[2020-01-20 17:35] LABS: BASO % 0.3 % (0.0-1.0); EOS # 0.2 10^3/uL (0.0-0.5); EOS % 3.2 % (0.0-3.0); HEMATOCRIT 41.3 % (36.0-47.0); HEMOGLOBIN 12.9 g/dl (12.0-15.5); LYMPH # 2.4 10^3/uL (1.5-5.0); MEAN CORPUSCULAR HEMOGLOBIN 28.4 pg (27.0-33.0); MEAN CORPUSCULAR HGB CONC 31.2 g/dl (32.0-36.5); MEAN CORPUSCULAR VOLUME 90.8 fl (80.0-96.0); MONO # 0.4 10^3/uL (0.0-0.8); MONO % 5.6 % (0.0-5.0); NEUTROPHILS # 3.9 10^3/uL (1.5-8.5); NEUTROPHILS % 56.3 % (36.0-66.0); PLATELET COUNT, AUTOMATED 268 10^3/uL (150-450); RED BLOOD COUNT 4.55 10^6/uL (4.00-5.40); WHITE BLOOD COUNT 6.9 10^3/uL (4.0-10.0)
[2020-01-20 17:50] LABS: ALBUMIN 3.6 GM/DL (3.2-5.2); ALT/SGPT 51 U/L (12-78); BILIRUBIN,TOTAL 0.3 MG/DL (0.2-1.0); BLOOD UREA NITROGEN 32 MG/DL (7-18); CALCIUM LEVEL 9.4 MG/DL (8.8-10.2); CARBON DIOXIDE LEVEL 29 MEQ/L (21-32); CHLORIDE LEVEL 106 MEQ/L (98-107); CREATININE FOR GFR 0.91 MG/DL (0.55-1.30); GLOMERULAR FILTRATION RATE > 60.0 (>39); GLUCOSE, FASTING 149 MG/DL (70-100); POTASSIUM SERUM 5.4 MEQ/L (3.5-5.1); SODIUM LEVEL 138 MEQ/L (136-145); TOTAL PROTEIN 7.5 GM/DL (6.4-8.2)
== END ==
LOC: M LAB REF 16:39
PROVIDERS: ATTEND Nurse Practitioner Family
DX: R74.8 Abnormal levels of other serum enzymes (principal); Z13.9 Encounter for screening, unspecified; E11.69 Type 2 diabetes mellitus with other specified complication

== ENCOUNTER → 2020-02-04 | Outpatient (REF) | payer MEDICARE, MEDICAID ==
[2020-02-04 12:44] LABS: ALBUMIN 3.6 GM/DL (3.2-5.2); ALT/SGPT 35 U/L (12-78); BILIRUBIN,TOTAL 0.3 MG/DL (0.2-1.0); BLOOD UREA NITROGEN 28 MG/DL (7-18); CALCIUM LEVEL 9.7 MG/DL (8.8-10.2); CARBON DIOXIDE LEVEL 28 MEQ/L (21-32); CHLORIDE LEVEL 106 MEQ/L (98-107); CREATININE FOR GFR 0.95 MG/DL (0.55-1.30); GLOMERULAR FILTRATION RATE > 60.0 (>39); GLUCOSE, FASTING 79 MG/DL (70-100); POTASSIUM SERUM 4.7 MEQ/L (3.5-5.1); SODIUM LEVEL 139 MEQ/L (136-145); TOTAL PROTEIN 7.3 GM/DL (6.4-8.2)
[2020-02-04 13:08] LABS: HEMOGLOBIN A1c 10.9 %
== END ==
LOC: M LAB REF 11:29
PROVIDERS: ATTEND Nurse Practitioner Family
DX: E11.65 Type 2 diabetes mellitus with hyperglycemia (principal)

== ENCOUNTER 2020-02-19 03:51 | Observation (INO) | payer MEDICAID, MEDICARE ==
[~2020-02-19] VITALS: Ht 157.5 cm; Wt 53.2 kg
[~2020-02-19 03:51] MED LIST changes: -FARXIGA; +FARXIGA PO; +MIRT-62 PO; -REME15TA PO
[2020-02-19] MEDS ORDERED: TRUL10IN SC (04:08)
[2020-02-19] MEDS ORDERED: NS 0.45% 1,000 ML IV ONE (05:00)
[2020-02-19 05:04] LABS: VENOUS BASE EXCESS -1.5 (-2.0-2.0); VENOUS HCO3 26.5 MEQ/L (23.0-27.0); VENOUS O2 SATURATION 64.1 % (60.0-80.0); VENOUS PARTIAL PRESSURE CO2 58.7 mmHg (38.0-50.0); VENOUS PARTIAL PRESSURE O2 34.7 mmHg (30.0-50.0); VENOUS PH 7.273 UNITS (7.330-7.430); VENOUS STANDARD HCO3 22.4 MEQ/L; VENOUS TOTAL CO2 28.3 MEQ/L (24.0-28.0)
[2020-02-19] MEDS ORDERED: D5W/0.45% SODIUM CHLORIDE 1,000 ML IV ONE ×2 (05:15→07:15)
[2020-02-19 05:26] LABS: BASO % 0.1 % (0.0-1.0); EOS % 0.1 % (0.0-3.0); HEMOGLOBIN 12.3 g/dl (12.0-15.5); LYMPH # 0.5 10^3/uL (1.5-5.0); LYMPH % 5.4 % (24.0-44.0); MEAN CORPUSCULAR HEMOGLOBIN 27.8 pg (27.0-33.0); MEAN CORPUSCULAR HGB CONC 30.8 g/dl (32.0-36.5); MEAN CORPUSCULAR VOLUME 90.3 fl (80.0-96.0); MONO # 0.3 10^3/uL (0.0-0.8); NEUTROPHILS # 8.8 10^3/uL (1.5-8.5); NEUTROPHILS % 90.9 % (36.0-66.0); PLATELET COUNT, AUTOMATED 252 10^3/uL (150-450); RED BLOOD COUNT 4.43 10^6/uL (4.00-5.40); WHITE BLOOD COUNT 9.7 10^3/uL (4.0-10.0)
[2020-02-19 05:33] LABS: OSMOLALITY SERUM 298 MOSM/KG (280-301)
[2020-02-19 05:41] LABS: ACETONE/KETONE 1.42 MG/DL (<2.81); ALBUMIN 3.7 GM/DL (3.2-5.2); ALT/SGPT 34 U/L (12-78); BILIRUBIN,DIRECT < 0.1 MG/DL (0.0-0.2); BILIRUBIN,TOTAL 0.3 MG/DL (0.2-1.0); LIPASE 204 U/L (73-393); TOTAL PROTEIN 8.1 GM/DL (6.4-8.2)
--- NOTE | 2020-02-19 07:41 | ECGEPIP ---
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
[2020-02-19] MEDS ORDERED: MEMA1TAB3 PO (08:21)
[2020-02-19] MEDS ORDERED: BASA100I SC (08:21)
[2020-02-19] MEDS ORDERED: D31000TA2 PO (08:21)
[2020-02-19] MEDS ORDERED: ASPI81CH33 PO (08:21)
[2020-02-19] MEDS ORDERED: ACETAMINOPHEN TAB 650MG DOSE (2X325MG) PO PRN (10:00)
[2020-02-19] MEDS ORDERED: GLUCOSE 4GM CHEW TABLET PO PRN (10:00)
[2020-02-19] MEDS ORDERED: GLUCAGON INJ 1MG VIAL SC PRN (10:00)
[2020-02-19] MEDS ORDERED: DEXTROSE 50% 50 ML SYRINGE IV PRN (10:00)
--- NOTE | 2020-02-19 10:15 | HPEPDOC ---
General Date of Admission 02/19/20 Date of Service: Feb 19, 2020 Chief Complaint The patient is a 74-year-old female admitted with a reason for visit of Low Blood Sugar. Source: Patient, Family Exam Limitations: Clinical conditions, Language barrier Timing/Duration: 4-6 hours Severity: Mild History of Present Illness Patient is 74 years old female with past history of diabetes, dementia presented to the hospital with altered mental status. According to her daughter patient was most likely injected extra dose of insulin and developed confusion with shakiness. Daughter stated that she usually supervised injection of insulin however yesterday she was tired and went to bed early and possibly her mom inje cted insulin by herself. When she checked blood glucose level it was 28. In ER patient received D50, her blood glucose level was stabilized. Home Medications Scheduled Ascorbic Acid (Vitamin C) 500 Mg Capsule, 500 MG PO QHS, (Reported) Aspirin (Aspirin) 81 Mg Tab.chew, 81 MG PO DAILY, (Reported) Cholecalciferol (Vitamin D3) (Vitamin D3) 1,000 Unit Tablet, 1,000 UNITS PO DAILY, (Reported) Dulaglutide (Trulicity) 0.75 Mg/0.5 Ml Pen.injctr, 0.75 MG SC QWEEK, (Reported) SATURDAYS Insulin Glargine,Hum.rec.anlog (Basaglar Kwikpen U-100) 100 Unit/1 Ml Insuln.pen, 10 UNITS SC QPM, (Reported) Memantine HCl (Memantine HCl) 5 Mg Tablet, 5 MG PO BID, (Reported) Mirtazapine (Remeron) 15 Mg Tablet, 15 MG PO QHS, (Reported) Multivit-Min/FA/Lycopen/Lutein (Centrum Silver Tablet) 1 Each Tablet, 1 TAB PO DAILY, (Reported) Vitamin E (Dl,Tocopheryl Acet) (Vitamin E) 400 Unit Capsule, 400 UNIT PO QHS, (Reported) [Farxiga] 5 MG TABLET, 5 MG PO DAILY, (Reported) Allergies Coded Allergies: No Known Allergies (Unverified , 04/20/16) Past Medical History Medical History DIABETES MELLITUS TYPE 2 DEMENTIA Surgical History X 3 APPENDECTOMY CATARACT EXTRACTION Family History FATHER: MOTHER: SIBLINGS: ALIVE SON(S): ALIVE DAUGHTER(S): ALIVE 4 SISTER(S) - HEALTHY. 1 SON(S) , 2 DAUGHTER(S) - HEALTHY. Social History * Smoker: Denies Alcohol: Denies Drugs: denies A-FIB/CHADSVASC A-FIB History Current/History of A-Fib/PAF?: No Current PO Anticoag Therapy: No Review of Systems Constitutional: Reports: Fatigue; Denies: Chills, Fever Eyes: Denies: Pain ENT: Denies: Head Aches Skin: Denies: Rash Pulmonary: Denies: Dyspnea Cardiovascular: Denies: Chest Pain Gastrointestinal: Denies: Nausea, Vomiting Genitourinary: Denies: Dysuria Hematologic: Denies: Bruising, Bleeding Excessively Endocrine: Denies: Polydipsia Musculoskeletal: Denies: Neck Pain, Back Pain Neurological: Denies: Weakness Psych: Reports: Mood Normal Physical Examination General Exam: Positive: Alert, Cooperative Eye Exam: Positive: PERRLA ENT Exam: Positive: Atraumatic Neck Exam: Positive: Supple; Negative: JVD Chest Exam: Positive: Clear to auscultation Heart Exam: Positive: Rate Normal Telemetry: Positive: No significant arrhythmia Abdomen Exam: Positive: Normal bowel sounds Extremity Exam: Negative: Clubbing, Cyanosis Skin Exam: Positive: Nl turgor and temperature Neuro Exam: Positive: Normal Gait Psych Exam: Positive: Mental status NL Vital Signs Vital Signs Date Time Temp Pulse Resp B/P (MAP) Pulse Ox O2 Delivery O2 Flow Rate FiO2 02/19/20 08:15 82 137/78 (97) 100 Room Air 02/19/20 07:45 16 02/19/20 06:30 98.2 Laboratory Data Labs 24H Laboratory Tests 2 02/19/20 04:46: Immature Granulocyte % (Auto) 0.5, Neutrophils (%) (Auto) 90.9H, Lymphocytes (%) (Auto) 5.4L, Monocytes (%) (Auto) 3.0, Eosinophils (%) (Auto) 0.1, Basophils (%) (Auto) 0.1, Neutrophils # (Auto) 8.8H, Lymphocytes # (Auto) 0.5L, Monocytes # (Auto) 0.3, Eosinophils # (Auto) 0.0, Basophils # (Auto) 0.0, Nucleated Red Blood Cells % (auto) 0.0, Urine Color COLORLESS, Urine Appearance CLEAR, Urine pH 5.0, Urine Specific [place] 1.001L, Urine Protein NEGATIVE, Urine Glucose (UA) 3+H, Urine Ketones NEGATIVE, Urine Blood NEGATIVE, Urine Nitrite NEGATIVE, Urine Bilirubin NEGATIVE, Urine Urobilinogen 0.2, Urine Leukocyte Esterase NEGATIVE, Urine WBC (Auto) 0, Urine RBC (Auto) 1, Urine Hyaline Casts (Auto) 0, Urine Bacteria (Auto) NEGATIVE, Urine Squamous Epithelial Cells 0, Urine Mucus (Auto) SMALL, Urine Sperm (Auto) , Blood Gas Bicarbonate Standard 22.4, Venous Blood pH 7.273L, Venous Blood Partial Pressure CO2 58.7H, Venous Blood Partial Pressure O2 34.7, Venous Blood Total Carbon Dioxide 28.3H, Venous Blood HCO3 26.5, Venous Blood Oxygen Saturation 64.1, Venous Blood Base Excess -1.5, Estimated Mean Plasma Glucose 240H, Hemoglobin A1c 10.0, Osmolality 298, Total Bilirubin 0.3, Direct Bilirubin < 0.1, Aspartate Amino Transf (AST/SGOT) 40H, Alanine Aminotransferase (ALT/SGPT) 34, Alkaline Phosphatase 135H, Total Protein 8.1, Albumin 3.7, Albumin/Globulin Ratio 0.8L, Lipase 204, B-Hydroxybutyrate 1.42 02/19/20 04:57: POC Glucose (Misc Panel) 83, POC Sodium (Misc Panel) 140, POC Potassium (Misc Panel) 4.2, POC Chloride (Misc Panel) 105, POC Total CO2 (Misc Panel) 28.0H, POC Blood Urea Nitrogen (Misc Panel 35H, POC Ionized Calcium (Misc Panel) 4.8, POC Creatinine (Misc Panel) 0.8, POC Hematocrit (Misc Panel) 44.0 02/19/20 06:10: Bedside Glucose (Misc Panel) 214H 02/19/20 09:01: Coronavirus (COVID-19)(PCR) NEGATIVE CBC/BMP Laboratory Tests 02/19/20 04:46 Assessment/Plan Patient is 74 years old female with past history of diabetes, dementia presented to the hospital with altered mental status. According to her daughter patient was most likely injected extra dose of insulin and developed confusion with shakiness. Daughter stated that she usually supervised injection of insulin however yesterday she was tired and went to bed early and possibly her mom injected insulin by herself. When she checked blood glucose level it was 28. In ER patient received D50, her blood glucose level was stabilized. Problems (1) Hypoglycemia Status: Acute Problem Text: Most likely due to accidentally injection of extra dose of basal insulin. Insulin sliding scale Diabetes diet We'll hold basal insulin (2) DKA, type 2, not at goal Status: Acute Problem Text: Poorly controlled diabetes HbA1c around 10 Follow-up with PCP in the outpatient settings in order to adjust the dose of insulin Plan / VTE VTE Prophylaxis Ordered?: Yes YIFAN LIZ DO Feb 19, 2020 10:15
[2020-02-19 13:30] VITALS: BP 128/77
[2020-02-19] MEDS: HumaLOG INSULIN (NovoLOG) PER UNIT SC SCH ×3 (14:03→21:00)
[2020-02-19 14:36] LABS: BLOOD UREA NITROGEN 24 MG/DL (7-18); CALCIUM LEVEL 8.4 MG/DL (8.8-10.2); CARBON DIOXIDE LEVEL 25 MEQ/L (21-32); CHLORIDE LEVEL 110 MEQ/L (98-107); CREATININE FOR GFR 0.95 MG/DL (0.55-1.30); GLOMERULAR FILTRATION RATE > 60.0 (>39); GLUCOSE, FASTING 140 MG/DL (70-100); SODIUM LEVEL 142 MEQ/L (136-145)
[2020-02-19] MEDS: MEMANTINE 5MG TABLET (NAMENDA) PO SCH ×2 (14:36→20:50)
[2020-02-19] MEDS: MULTIVITAMINS/MINERALS THERAP 1 TAB PO SCH (14:36)
[2020-02-19] MEDS: ASPIRIN 81 MG CHEW TABLET PO SCH (14:36)
[2020-02-19] MEDS: ENOXAPARIN 40MG/0.4ML SYRINGE (J1650 PER 10MG) SC SCH (14:37)
[2020-02-19] MEDS: MIRTAZAPINE 15 MG TAB PO SCH (20:50)
[2020-02-19] MEDS: VITAMIN E 400 INTERNATIONAL UNITS CAP PO SCH (20:50)
[2020-02-19 21:04] LABS: BLOOD UREA NITROGEN 25 MG/DL (7-18); CALCIUM LEVEL 8.4 MG/DL (8.8-10.2); CARBON DIOXIDE LEVEL 24 MEQ/L (21-32); CHLORIDE LEVEL 113 MEQ/L (98-107); CREATININE FOR GFR 0.95 MG/DL (0.55-1.30); GLOMERULAR FILTRATION RATE > 60.0 (>39); GLUCOSE, FASTING 103 MG/DL (70-100); POTASSIUM SERUM 3.7 MEQ/L (3.5-5.1); SODIUM LEVEL 144 MEQ/L (136-145)
[2020-02-19 22:00] VITALS: BP 115/66
[2020-02-20 02:00] VITALS: BP 124/66
[2020-02-20 02:53] LABS: BLOOD UREA NITROGEN 26 MG/DL (7-18); CALCIUM LEVEL 8.3 MG/DL (8.8-10.2); CARBON DIOXIDE LEVEL 24 MEQ/L (21-32); CHLORIDE LEVEL 112 MEQ/L (98-107); CREATININE FOR GFR 0.95 MG/DL (0.55-1.30); GLOMERULAR FILTRATION RATE > 60.0 (>39); GLUCOSE, FASTING 34 MG/DL (70-100); POTASSIUM SERUM 3.9 MEQ/L (3.5-5.1); SODIUM LEVEL 142 MEQ/L (136-145)
[2020-02-20 06:00] VITALS: BP 125/73
[2020-02-20 07:11] LABS: HEMATOCRIT 41.1 % (36.0-47.0); HEMOGLOBIN 12.6 g/dl (12.0-15.5); MEAN CORPUSCULAR HGB CONC 30.7 g/dl (32.0-36.5); MEAN CORPUSCULAR VOLUME 91.3 fl (80.0-96.0); PLATELET COUNT, AUTOMATED 275 10^3/uL (150-450); WHITE BLOOD COUNT 7.3 10^3/uL (4.0-10.0)
[2020-02-20] MEDS: HumaLOG INSULIN (NovoLOG) PER UNIT SC SCH ×4 (07:30→20:22)
[2020-02-20 07:35] LABS: ALBUMIN 3.2 GM/DL (3.2-5.2); ALT/SGPT 38 U/L (12-78); BILIRUBIN,TOTAL 0.2 MG/DL (0.2-1.0); BLOOD UREA NITROGEN 23 MG/DL (7-18); CALCIUM LEVEL 8.4 MG/DL (8.8-10.2); CARBON DIOXIDE LEVEL 26 MEQ/L (21-32); CHLORIDE LEVEL 113 MEQ/L (98-107); CREATININE FOR GFR 0.96 MG/DL (0.55-1.30); GLOMERULAR FILTRATION RATE > 60.0 (>39); GLUCOSE, FASTING 87 MG/DL (70-100); POTASSIUM SERUM 4.3 MEQ/L (3.5-5.1); SODIUM LEVEL 144 MEQ/L (136-145)
[2020-02-20] MEDS: MEMANTINE 5MG TABLET (NAMENDA) PO SCH ×2 (07:56→20:20)
[2020-02-20] MEDS: MULTIVITAMINS/MINERALS THERAP 1 TAB PO SCH (07:56)
[2020-02-20] MEDS: ASPIRIN 81 MG CHEW TABLET PO SCH (07:56)
[2020-02-20] MEDS: ENOXAPARIN 40MG/0.4ML SYRINGE (J1650 PER 10MG) SC SCH (07:58)
[2020-02-20 10:00] VITALS: BP 128/75
[2020-02-20] MEDS ORDERED: INSUHUMDS SC ×2 (10:07)
--- NOTE | 2020-02-20 13:55 | DS.PDOC ---
Discharge Summary General Date of Admission Feb 19, 2020 at 03:52 Date of Discharge 02/20/20 Discharge Summary PROCEDURES PERFORMED DURING STAY: [None]. ADMITTING DIAGNOSES: Hypoglycemia DKA, type 2, not at goal DISCHARGE DIAGNOSES: Hypoglycemia DKA, type 2, not at goal COMPLICATIONS/CHIEF COMPLAINT: Hypoglycemia. HISTORY OF PRESENT ILLNESS:Patient is 74 years old female with past history of diabetes, dementia presented to the hospital with altered mental status. According to her daughter patient was most likely injected extra dose of insulin and developed confusion with shakiness. Daughter stated that she usually supervised injection of insulin however yesterday she was tired and went to bed early and possibly her mom injected insulin by herself. When she checked blood glucose level it was 28. In ER patient received D50, her blood glucose level was stabilized. HOSPITAL COURSE: During hospital stay following issue addressed (1) Hypoglycemia Most likely due to accidentally injection of extra dose of basal insulin. Insulin sliding scale Diabetes diet (2) DKA, type 2, not at goal Poorly controlled diabetes HbA1c around 10 Follow-up with PCP in the outpatient settings in order to adjust the dose of insulin DISCHARGE MEDICATIONS: Please see below. ALLERGIES: Please see below. PHYSICAL EXAMINATION ON DISCHARGE: VITAL SIGNS: Please see below. General Exam: Positive: Alert, Cooperative Eye Exam: Positive: PERRLA ENT Exam: Positive: Atraumatic Neck Exam: Positive: Supple; Negative: JVD Chest Exam: Positive: Clear to auscultation Heart Exam: Positive: Rate Normal Telemetry: Positive: No significant arrhythmia Abdomen Exam: Positive: Normal bowel sounds Extremity Exam: Negative: Clubbing, Cyanosis Skin Exam: Positive: Nl turgor and temperature Neuro Exam: Positive: Normal Gait Psych Exam: Positive: Mental status NL LABORATORY DATA: Please see below. PROGNOSIS: Fair ACTIVITY: [As tolerated]. DIET: Diabetes diet DISPOSITION: Home DISCHARGE INSTRUCTIONS: Check glucose level before each meal ITEMS TO FOLLOWUP ON ON OUTPATIENT: Follow-up with PCP in 3-5 days DISCHARGE CONDITION: [Stable]. TIME SPENT ON DISCHARGE: Greater than 20 minutes. Vital Signs/I&Os Vital Signs Date Time Temp Pulse Resp B/P (MAP) Pulse Ox O2 Delivery O2 Flow Rate FiO2 02/20/20 10:00 99.0 92 18 128/75 (92) 97 Room Air I&O- Last 24 Hours up to 6 AM 02/20/20 06:00 Intake Total 2500 ml Output Total 800 ml Balance 1700 ml Laboratory Data Labs 24H Laboratory Tests 2 02/19/20 13:57: Bedside Glucose (Misc Panel) 134H 02/19/20 14:03: Anion Gap 7L, Glomerular Filtration Rate > 60.0, Calcium Level 8.4L 02/19/20 16:49: Bedside Glucose (Misc Panel) 213H 02/19/20 20:16: Anion Gap 7L, Glomerular Filtration Rate > 60.0, Calcium Level 8.4L 02/19/20 20:47: Bedside Glucose (Misc Panel) 85 02/20/20 02:15: Anion Gap 6L, Glomerular Filtration Rate > 60.0, Calcium Level 8.3L 02/20/20 03:26: Bedside Glucose (Misc Panel) 61L 02/20/20 06:26: Anion Gap 5L, Glomerular Filtration Rate > 60.0, Calcium Level 8.4L, Nucleated Red Blood Cells % (auto) 0.0, Magnesium Level 2.0, Total Bilirubin 0.2, Aspartate Amino Transf (AST/SGOT) 31, Alanine Aminotransferase (ALT/SGPT) 38, Alkaline Phosphatase 135H, Total Protein 7.0, Albumin 3.2, Albumin/Globulin Ratio 0.8L 02/20/20 11:47: Bedside Glucose (Misc Panel) 119H CBC/BMP Laboratory Tests 02/19/20 14:03 02/19/20 20:16 02/20/20 02:15 02/20/20 06:26 FSBS Laboratory Tests Test 02/19/20 13:57 02/19/20 16:49 02/19/20 20:47 02/20/20 03:26 Range/Units Bedside Glucose (Misc Panel) 134 213 85 61 83-110 MG/DL Test 02/20/20 11:47 Range/Units Bedside Glucose (Misc Panel) 119 83-110 MG/DL Discharge Medications Scheduled Ascorbic Acid (Vitamin C) 500 Mg Capsule, 500 MG PO QHS, (Reported) Aspirin (Aspirin) 81 Mg Tab.chew, 81 MG PO DAILY, (Reported) Cholecalciferol (Vitamin D3) (Vitamin D3) 1,000 Unit Tablet, 1,000 UNITS PO DAILY, (Reported) Insulin Glargine,Hum.rec.anlog (Basaglar Kwikpen U-100) 100 Unit/1 Ml Insuln.pen, 10 UNITS SC QPM, (Reported) Insulin Human Lispro (Humalog) 100 Unit/1 Ml Vial, 0 UNITS SC AC Insulin Human Lispro (Humalog) 100 Unit/1 Ml Vial, 0 UNITS SC QHS Memantine HCl (Memantine HCl) 5 Mg Tablet, 5 MG PO BID, (Reported) Mirtazapine (Remeron) 15 Mg Tablet, 15 MG PO QHS, (Reported) Multivit-Min/FA/Lycopen/Lutein (Centrum Silver Tablet) 1 Each Tablet, 1 TAB PO DAILY, (Reported) Vitamin E (Dl,Tocopheryl Acet) (Vitamin E) 400 Unit Capsule, 400 UNIT PO QHS, (Reported) [Farxiga] 5 MG TABLET, 5 MG PO DAILY, (Reported) Allergies Coded Allergies: No Known Allergies (Unverified , 04/20/16) YIFAN LIZ DO Feb 20, 2020 13:55
[2020-02-20 14:00] VITALS: BP 129/75
[2020-02-20 18:00] VITALS: BP 129/75
[2020-02-20] MEDS: MIRTAZAPINE 15 MG TAB PO SCH (20:19)
[2020-02-20] MEDS: VITAMIN E 400 INTERNATIONAL UNITS CAP PO SCH (20:20)
[2020-02-20 22:00] VITALS: BP 126/76
[2020-02-21 06:00] VITALS: BP 128/72
[2020-02-21] MEDS: HumaLOG INSULIN (NovoLOG) PER UNIT SC SCH ×2 (07:23→12:06)
[2020-02-21] MEDS: MEMANTINE 5MG TABLET (NAMENDA) PO SCH (09:10)
[2020-02-21] MEDS: MULTIVITAMINS/MINERALS THERAP 1 TAB PO SCH (09:11)
[2020-02-21] MEDS: ASPIRIN 81 MG CHEW TABLET PO SCH (09:11)
[2020-02-21] MEDS: ENOXAPARIN 40MG/0.4ML SYRINGE (J1650 PER 10MG) SC SCH (09:12)
== END 2020-02-21 14:10 | disposition home or self-care (01) ==
LOC: M ED 03:51 → M ED INP 03:52 → ENRESERV 10:37 → M MS5PR 13:30
PROVIDERS: ADMIT Internal Medicine; ATTEND Internal Medicine
DX: E11.649 Type 2 diabetes mellitus with hypoglycemia without coma (principal); F03.90 Unspecified dementia, unspecified severity, without behavioral disturbance, psychotic disturbance, mood disturbance, and anxiety; Z79.4 Long term (current) use of insulin; Z79.82 Long term (current) use of aspirin
CPT/HCPCS: 36415; 80047; 80053; 80076; 81001; 82010; 82803; 83036; 83690; 83735; 83930; 85025; 85027; 93005; 93041; 96361; 96372; 99285; G0378; J1650; U0002

== ENCOUNTER → 2020-03-02 | Outpatient (REF) | payer MEDICARE ==
[~2020-03-02] MED LIST changes: +ASPI81CH33 PO; +BASA100I SC; +D31000TA2 PO; +MEMA1TAB3 PO; +TRUL10IN SC
[2020-03-02 11:56] LABS: BASO % 0.1 % (0.0-1.0); EOS # 0.1 10^3/uL (0.0-0.5); EOS % 1.7 % (0.0-3.0); HEMATOCRIT 41.5 % (36.0-47.0); HEMOGLOBIN 12.8 g/dl (12.0-15.5); LYMPH # 1.9 10^3/uL (1.5-5.0); LYMPH % 27.7 % (24.0-44.0); MEAN CORPUSCULAR HEMOGLOBIN 27.8 pg (27.0-33.0); MEAN CORPUSCULAR HGB CONC 30.8 g/dl (32.0-36.5); MONO # 0.4 10^3/uL (0.0-0.8); MONO % 5.1 % (0.0-5.0); NEUTROPHILS # 4.5 10^3/uL (1.5-8.5); NEUTROPHILS % 65.1 % (36.0-66.0); PLATELET COUNT, AUTOMATED 314 10^3/uL (150-450); RED BLOOD COUNT 4.61 10^6/uL (4.00-5.40); WHITE BLOOD COUNT 6.9 10^3/uL (4.0-10.0)
[2020-03-02 12:27] LABS: HEMOGLOBIN A1c 8.1 %
[2020-03-02 12:29] LABS: ALBUMIN 3.6 GM/DL (3.2-5.2); BILIRUBIN,TOTAL 0.3 MG/DL (0.2-1.0); CALCIUM LEVEL 9.2 MG/DL (8.8-10.2); CHOLESTEROL RISK RATIO 2.583 (<5); CREATININE FOR GFR 0.97 MG/DL (0.55-1.30); GLOMERULAR FILTRATION RATE 59.4 (>39); POTASSIUM SERUM 4.7 MEQ/L (3.5-5.1); TOTAL PROTEIN 7.5 GM/DL (6.4-8.2)
[2020-03-02 12:33] LABS: TOTAL 25(OH) VITAMIN D 44.1 NG/ML (30.0-100.0)
== END ==
LOC: M LAB REF 11:15
PROVIDERS: ATTEND Nurse Practitioner Family
DX: E11.9 Type 2 diabetes mellitus without complications (principal); N18.9 Chronic kidney disease, unspecified; E55.9 Vitamin D deficiency, unspecified

== ENCOUNTER → 2020-06-01 | Outpatient (REF) | payer MEDICARE, MEDICAID ==
[2020-06-01 13:32] LABS: BASO % 0.3 % (0.0-1.0); EOS # 0.2 10^3/uL (0.0-0.5); EOS % 3.2 % (0.0-3.0); HEMATOCRIT 42.7 % (36.0-47.0); HEMOGLOBIN 13.3 g/dl (12.0-15.5); LYMPH # 1.8 10^3/uL (1.5-5.0); LYMPH % 24.5 % (24.0-44.0); MEAN CORPUSCULAR HEMOGLOBIN 27.2 pg (27.0-33.0); MEAN CORPUSCULAR HGB CONC 31.1 g/dl (32.0-36.5); MEAN CORPUSCULAR VOLUME 87.3 fl (80.0-96.0); MONO # 0.5 10^3/uL (0.0-0.8); MONO % 6.5 % (2.0-8.0); NEUTROPHILS # 4.8 10^3/uL (1.5-8.5); NEUTROPHILS % 65.2 % (36.0-66.0); PLATELET COUNT, AUTOMATED 291 10^3/uL (150-450); RED BLOOD COUNT 4.89 10^6/uL (4.00-5.40); WHITE BLOOD COUNT 7.4 10^3/uL (4.0-10.0)
[2020-06-01 14:20] LABS: ALBUMIN 3.7 GM/DL (3.2-5.2); BILIRUBIN,TOTAL 0.4 MG/DL (0.2-1.0); CALCIUM LEVEL 9.5 MG/DL (8.8-10.2); CHOLESTEROL RISK RATIO 2.412 (<5); CREATININE FOR GFR 1.05 MG/DL (0.55-1.30); GLOMERULAR FILTRATION RATE 54.2 (>39); POTASSIUM SERUM 5.3 MEQ/L (3.5-5.1); TOTAL 25(OH) VITAMIN D 46.3 NG/ML (30.0-100.0); TOTAL PROTEIN 7.6 GM/DL (6.4-8.2)
[2020-06-01 15:10] LABS: HEMOGLOBIN A1c 7.1 %
== END ==
LOC: M LAB REF 12:07
PROVIDERS: ATTEND Nurse Practitioner Family
DX: E78.5 Hyperlipidemia, unspecified (principal); E55.9 Vitamin D deficiency, unspecified

== ENCOUNTER → 2020-12-17 | Outpatient (CLI) | payer MEDICARE, MEDICAID ==
--- NOTE | 2020-12-17 09:10 | REP ---
INDICATION: ATHEROSCLEROSIS RENAL ARTERY, CKD 3A. COMPARISON: CT 06/16/2019. TECHNIQUE: Real-time sonographic evaluation of the kidneys is performed. Duplex Doppler evaluation of renal arteries performed bilaterally. FINDINGS: Renal cortical echogenicity pattern is normal bilaterally and contours are smooth. There is no evidence of hydronephrosis, cyst, mass, or calculus in either kidney. The right kidney measures 10.1 x 4.0 x 4.1 cm. Left renal dimensions are 9.5 x 4.9 x 4.9 cm. The urinary bladder is unremarkable. Ureteral jets are not visualized in the urinary bladder with Doppler color evaluation. The peak systolic velocity in the abdominal aorta at the level of the renal arteries is 56.8 centimeter/second. The peak systolic velocity of the main right renal artery is 64.5 centimeter/second, renal to aortic ratio 1.1. Resistive indices right kidney range between 0.58 and 0.65. Acceleration times range between 0.022 and 0.033. The peak systolic velocity of the main left renal artery is 90.6 centimeters/second, renal to aortic ratio 1.6. Resistive indices left kidney range between 0.58 and 0.64. Acceleration times range between 0.016 and 0.030. IMPRESSION: Negative renal ultrasound. No compelling duplex Doppler sonographic evidence of significant stenosis of the bilateral renal arteries. <Electronically signed by Rc Flor > 12/17/20 [id number]
== END ==
LOC: M RAD 08:01
PROVIDERS: ATTEND Internal Medicine Nephrology
DX: N18.31 Chronic kidney disease, stage 3a (principal); I70.1 Atherosclerosis of renal artery

== ENCOUNTER 2021-06-19 21:28 | Emergency (ER) | payer MEDICARE, MEDICAID ==
[~2021-06-19 21:28] MED LIST changes: -D31000TA2 PO; +VITA100093 PO
[2021-06-19] MEDS ORDERED: NOVOINJ SC (21:57)
[2021-06-19] MEDS ORDERED: ATOR1TAB19 PO (21:57)
[2021-06-19] MEDS ORDERED: DONE10TA90 PO (21:57)
[2021-06-19] MEDS ORDERED: DEXA4TA PO (21:57)
[2021-06-20 01:25] LABS: BASO % 0.1 % (0.0-1.0); EOS % 0.1 % (0.0-3.0); HEMATOCRIT 40.3 % (36.0-47.0); HEMOGLOBIN 13.4 g/dl (12.0-15.5); LYMPH # 2.5 10^3/uL (1.5-5.0); LYMPH % 16.1 % (24.0-44.0); MEAN CORPUSCULAR HEMOGLOBIN 28.1 pg (27.0-33.0); MEAN CORPUSCULAR HGB CONC 33.3 g/dl (32.0-36.5); MEAN CORPUSCULAR VOLUME 84.5 fl (80.0-96.0); MONO # 0.9 10^3/uL (0.0-0.8); MONO % 5.8 % (2.0-8.0); NEUTROPHILS # 11.9 10^3/uL (1.5-8.5); NEUTROPHILS % 76.8 % (36.0-66.0); PLATELET COUNT, AUTOMATED 146 10^3/uL (150-450); RED BLOOD COUNT 4.77 10^6/uL (4.00-5.40); WHITE BLOOD COUNT 15.4 10^3/uL (4.0-10.0)
[2021-06-20] MEDS ORDERED: MIRTAZAPINE 15 MG TAB PO ONE (01:30)
[2021-06-20 01:49] LABS: ALBUMIN 2.7 GM/DL (3.2-5.2); ALT/SGPT 130 U/L (12-78); BILIRUBIN,TOTAL 0.3 MG/DL (0.2-1.0); BLOOD UREA NITROGEN 48 MG/DL (7-18); CALCIUM LEVEL 8.4 MG/DL (8.8-10.2); CARBON DIOXIDE LEVEL 30 MEQ/L (21-32); CHLORIDE LEVEL 105 MEQ/L (98-107); CREATININE FOR GFR 0.95 MG/DL (0.55-1.30); GLOMERULAR FILTRATION RATE > 60.0 (>39); GLUCOSE, FASTING 266 MG/DL (70-100); POTASSIUM SERUM 4.3 MEQ/L (3.5-5.1); SODIUM LEVEL 139 MEQ/L (136-145); TOTAL PROTEIN 6.4 GM/DL (6.4-8.2)
[2021-06-20 04:58] VITALS: BP 129/89
== END 2021-06-20 05:15 | disposition home or self-care (01) ==
LOC: M ED 21:28
DX: D49.6 Neoplasm of unspecified behavior of brain (principal); R79.89 Other specified abnormal findings of blood chemistry; I10 Essential (primary) hypertension; F03.90 Unspecified dementia, unspecified severity, without behavioral disturbance, psychotic disturbance, mood disturbance, and anxiety; E78.5 Hyperlipidemia, unspecified; Z79.899 Other long term (current) drug therapy; Z79.82 Long term (current) use of aspirin; Z79.4 Long term (current) use of insulin

== ENCOUNTER 2021-06-24 12:54 | Emergency (ER) | payer MEDICARE, MEDICAID ==
[~2021-06-24] VITALS: Ht 152.4 cm; Wt 55.8 kg
[~2021-06-24 12:54] MED LIST changes: +ATOR1TAB19 PO; +DEXA4TA PO; +DONE10TA90 PO; +NOVOINJ SC
[2021-06-24 15:05] VITALS: BP 129/72
== END 2021-06-24 15:46 | disposition home or self-care (01) ==
LOC: M ED 12:54
DX: S00.83XA Contusion of other part of head, initial encounter (principal); W18.39XA Other fall on same level, initial encounter; Y92.018 Other place in single-family (private) house as the place of occurrence of the external cause; E11.9 Type 2 diabetes mellitus without complications; F03.90 Unspecified dementia, unspecified severity, without behavioral disturbance, psychotic disturbance, mood disturbance, and anxiety; F33.9 Major depressive disorder, recurrent, unspecified; M54.50 Low back pain, unspecified; Z79.899 Other long term (current) drug therapy; Z79.82 Long term (current) use of aspirin; Z79.4 Long term (current) use of insulin